=== PATIENT | female | born 1945 | race Caucasian/White ===

== ENCOUNTER → 2024-04-29 | Outpatient (CLI) | payer MEDICARE, OTHER, SELFPAY ==
[2024-04-29 10:43] LABS: Basophils # (Auto) 0.1 Thou/mm3 (0.0-0.2); Basophils % (Auto) 1 % (0-2.5); Eosinophils # (Auto) 0.2 Thou/mm3 (0.0-0.5); Eosinophils % (Auto) 3 % (0-10); Hematocrit 41.4 % (36.0-46.0); Hemoglobin 13.7 g/dL (12.0-16.0); Immature Granulocytes % (Auto) 0 % (0-0); Immature Granulocytes Auto 0.01 Thou/mm3 (0.00-0.00); Lymphocytes % (Auto) 29 % (10-50); Mean Corpuscular HGB Conc 33.1 g/dl (31.0-37.0); Mean Corpuscular Volume 91 fL (80-100); Monocytes # (Auto) 1.1 Thou/mm3 (0.0-0.8); Monocytes % (Auto) 15 % (0-12); Neutrophils # (Auto) 3.7 Thou/mm3 (1.8-7.7); Neutrophils % (Auto) 53 % (37-80); Nucleated Red Blood Cell % 0 /100 WBC (0); Platelet Count 152 Thou/mm3 (140-440); RDW Standard Deviation 47.4 fL (36.4-46.3); Red Blood Count 4.57 Miln/mm3 (4.00-5.20); White Blood Count 7.1 Thou/mm3 (3.6-11.0)
[2024-04-29 11:09] LABS: Carcinoembryonic Antigen 1.1 ng/mL (0.0-5.0)
[2024-04-29 11:20] LABS: Alanine Aminotransferase 8 U/L (10-49); Albumin, Serum 4.2 gm/dL (3.4-4.8); Albumin/Globulin Ratio 1.9 (1.2-2.2); Alkaline Phosphatase 76 U/L (46-116); Anion Gap 4 (7-16); Aspartate Amino Transferase 20 U/L (0-34); BUN/Creatinine Ratio 19 Ratio (12-20); Bilirubin,Total 0.5 mg/dL (0.3-1.2); Blood Urea Nitrogen 19 mg/dL (9-23); Calcium 10.1 mg/dL (8.3-10.6); Calcium (Corrected) 10.1 mg/dL (8.5-10.1); Carbon Dioxide 28.9 mMol/L (20.0-31.0); Chloride 106 mMol/L (98-107); Globulin 2.2 gm/dL (2.3-3.5); Glucose 82 mg/dL (74-106); Osmolality,Calculated 278 (275-295); Potassium 4.9 mMol/L (3.4-5.1); Sodium 139 mMol/L (136-145); Total Protein 6.4 gm/dL (5.7-8.2); eGFR 57 See Note
[2024-04-29 12:00] LABS: Protein Total, Urine Volume 1000 mL/24hr (600-1800)
[2024-04-29 12:09] LABS: Protein Total, 24 hr Urine 690 mg/24hr (<149); Protein Total, Urine 69 mg/dL (1-14)
== END | disposition home or self-care (01) ==
LOC: SCTO 10:14
PROVIDERS: PCP Family Medicine; Referring Provider Specialist; Visit Provider Specialist
DX: C54.3 Malignant neoplasm of fundus uteri (principal)
CPT/HCPCS: 36415; 80053; 82378; 84156; 85025

== ENCOUNTER 2024-05-03 08:32 | Outpatient (RCR) | payer MEDICARE, OTHER, SELFPAY | END 2024-05-21 23:59 | disposition home or self-care (01) | LOC: SCTC 08:32 | PROVIDERS: PCP Family Medicine; Referring Provider Family Medicine; Visit Provider Internal Medicine Hematology & Oncology | DX: Z51.11 Encounter for antineoplastic chemotherapy (principal); C54.1 Malignant neoplasm of endometrium; R80.9 Proteinuria, unspecified | CPT/HCPCS: 86304; 96413; A4216; J1642; Q5126 ==

== ENCOUNTER → 2024-05-23 | Outpatient (CLI) | payer MEDICARE, OTHER, SELFPAY ==
[2024-05-23 11:26] LABS: Basophils # (Auto) 0.1 Thou/mm3 (0.0-0.2); Basophils % (Auto) 1 % (0-2.5); Eosinophils # (Auto) 0.5 Thou/mm3 (0.0-0.5); Eosinophils % (Auto) 7 % (0-10); Hematocrit 40.2 % (36.0-46.0); Hemoglobin 13.3 g/dL (12.0-16.0); Immature Granulocytes % (Auto) 0 % (0-0); Immature Granulocytes Auto 0.03 Thou/mm3 (0.00-0.00); Lymphocytes # (Auto) 2.1 Thou/mm3 (1.0-4.8); Lymphocytes % (Auto) 27 % (10-50); Mean Corpuscular HGB Conc 33.1 g/dl (31.0-37.0); Mean Corpuscular Volume 91 fL (80-100); Monocytes # (Auto) 1.2 Thou/mm3 (0.0-0.8); Monocytes % (Auto) 15 % (0-12); Neutrophils # (Auto) 3.9 Thou/mm3 (1.8-7.7); Neutrophils % (Auto) 50 % (37-80); Nucleated Red Blood Cell % 0 /100 WBC (0); Platelet Count 154 Thou/mm3 (140-440); RDW Standard Deviation 49.1 fL (36.4-46.3); Red Blood Count 4.44 Miln/mm3 (4.00-5.20); White Blood Count 7.7 Thou/mm3 (3.6-11.0)
[2024-05-23 11:39] LABS: Alanine Aminotransferase 12 U/L (10-49); Albumin/Globulin Ratio 1.7 (1.2-2.2); Alkaline Phosphatase 74 U/L (46-116); Anion Gap 5 (7-16); Aspartate Amino Transferase 21 U/L (0-34); BUN/Creatinine Ratio 30 Ratio (12-20); Bilirubin,Total 0.6 mg/dL (0.3-1.2); Blood Urea Nitrogen 27 mg/dL (9-23); Calcium 10.4 mg/dL (8.3-10.6); Calcium (Corrected) 10.4 mg/dL (8.5-10.1); Carbon Dioxide 29.6 mMol/L (20.0-31.0); Chloride 108 mMol/L (98-107); Creatinine (Component) 0.9 mg/dL (0.6-1.3); Globulin 2.3 gm/dL (2.3-3.5); Glucose 80 mg/dL (74-106); Osmolality,Calculated 289 (275-295); Potassium 4.3 mMol/L (3.4-5.1); Sodium 143 mMol/L (136-145); Total Protein 6.3 gm/dL (5.7-8.2); eGFR > 60 See Note
[2024-05-23 11:44] LABS: Carcinoembryonic Antigen 0.9 ng/mL (0.0-5.0)
[2024-05-23 12:36] LABS: Protein Total, Urine 194 mg/dL (1-14)
[2024-05-23 12:38] LABS: Protein Total, 24 hr Urine 1310 mg/24hr (<149); Protein Total, Urine Volume 675 mL/24hr (600-1800)
== END | disposition home or self-care (01) ==
LOC: SCTO 10:21
PROVIDERS: PCP Family Medicine; Referring Provider Internal Medicine Hematology & Oncology; Visit Provider Internal Medicine Hematology & Oncology
DX: C54.3 Malignant neoplasm of fundus uteri (principal)
CPT/HCPCS: 36415; 80053; 82378; 84156; 85025

== ENCOUNTER 2024-05-24 09:02 | Outpatient (RCR) | payer MEDICARE, OTHER, SELFPAY | END 2024-06-21 23:59 | disposition home or self-care (01) | LOC: SCTC 09:02 | PROVIDERS: PCP Family Medicine; Referring Provider Family Medicine; Visit Provider Internal Medicine Hematology & Oncology | DX: Z51.11 Encounter for antineoplastic chemotherapy (principal); C54.1 Malignant neoplasm of endometrium; R80.9 Proteinuria, unspecified; R59.0 Localized enlarged lymph nodes; R97.1 Elevated cancer antigen 125 [CA 125] | CPT/HCPCS: 96413; A4216; J1642; Q5126 ==

== ENCOUNTER → 2024-06-14 | Outpatient (CLI) | payer MEDICARE, OTHER, SELFPAY ==
[2024-06-14 11:35] LABS: Basophils # (Auto) 0.1 Thou/mm3 (0.0-0.2); Basophils % (Auto) 1 % (0-2.5); Eosinophils # (Auto) 0.2 Thou/mm3 (0.0-0.5); Eosinophils % (Auto) 2 % (0-10); Hematocrit 40.1 % (36.0-46.0); Hemoglobin 13.3 g/dL (12.0-16.0); Immature Granulocytes % (Auto) 0 % (0-0); Immature Granulocytes Auto 0.01 Thou/mm3 (0.00-0.00); Lymphocytes # (Auto) 1.7 Thou/mm3 (1.0-4.8); Lymphocytes % (Auto) 16 % (10-50); Mean Corpuscular HGB Conc 33.2 g/dl (31.0-37.0); Mean Corpuscular Hemoglobin 30.5 pg (25.0-35.0); Mean Corpuscular Volume 92 fL (80-100); Monocytes # (Auto) 1.4 Thou/mm3 (0.0-0.8); Monocytes % (Auto) 14 % (0-12); Neutrophils # (Auto) 6.8 Thou/mm3 (1.8-7.7); Neutrophils % (Auto) 67 % (37-80); Nucleated Red Blood Cell % 0 /100 WBC (0); Platelet Count 177 Thou/mm3 (140-440); RDW Standard Deviation 50.2 fL (36.4-46.3); Red Blood Count 4.36 Miln/mm3 (4.00-5.20); White Blood Count 10.1 Thou/mm3 (3.6-11.0)
[2024-06-14 12:11] LABS: Alanine Aminotransferase 22 U/L (10-49); Albumin, Serum 4.7 gm/dL (3.4-4.8); Albumin/Globulin Ratio 1.8 (1.2-2.2); Alkaline Phosphatase 77 U/L (46-116); Anion Gap 13 (7-16); Aspartate Amino Transferase 46 U/L (0-34); BUN/Creatinine Ratio 44 Ratio (12-20); Bilirubin,Total 0.9 mg/dL (0.3-1.2); Blood Urea Nitrogen 66 mg/dL (9-23); Calcium 11.1 mg/dL (8.3-10.6); Calcium (Corrected) 11.1 mg/dL (8.5-10.1); Carbon Dioxide 26.2 mMol/L (20.0-31.0); Chloride 109 mMol/L (98-107); Creatinine (Component) 1.5 mg/dL (0.6-1.3); Free T4 (Free Thyroxine) 1.34 ng/dL (0.89-1.76); Globulin 2.6 gm/dL (2.3-3.5); Glucose 78 mg/dL (74-106); Osmolality,Calculated 312 (275-295); Potassium 3.7 mMol/L (3.4-5.1); Sodium 148 mMol/L (136-145); Thyroid Stimulating Hormone 3.98 uIU/mL (0.55-4.78); Total Protein 7.3 gm/dL (5.7-8.2); eGFR 35 See Note
[2024-06-14 12:20] LABS: Uric Acid 15.7 mg/dL (3.1-7.8)
== END | disposition home or self-care (01) ==
LOC: COPL 10:53
PROVIDERS: PCP Family Medicine; Referring Provider Family Medicine; Visit Provider Family Medicine
DX: C54.3 Malignant neoplasm of fundus uteri (principal); E79.0 Hyperuricemia without signs of inflammatory arthritis and tophaceous disease; D64.9 Anemia, unspecified
CPT/HCPCS: 36415; 80053; 84439; 84443; 84550; 85025

== ENCOUNTER 2024-06-27 22:22 | Inpatient (IN) | payer MEDICARE, OTHER, SELFPAY ==
[2024-06-27 22:35] VITALS: BP 130/81
--- NOTE | 2024-06-27 22:35 | XR_ITS ---
Examination: CT brain head without contrast. 2-D sagittal coronal reconstructions Date and time of exam:June 27, 2024 1140 hrs. Indications: Ground-level fall today with injury to the head, head pain Comparison: November 30, 2023 CTDI: vol (mGy):51.80 DLP: (mGycm):1071 Technique: Multiple CT axial sections of the brain have been obtained, 5 mm slice thickness. Contrast has not been administered. 2-D sagittal, coronal reconstructions have been obtained Low dose protocols were performed. One or more of the following dose reduction techniques were used; automated exposure control, adjustment of the mA and/or KV according to patient size, use of iterative reconstruction technique. Findings: No significant ventricular enlargement. Old infarct right cerebellar hemisphere Acute appearing wedge-shaped infarcts in the posterior right parietal lobe axial image 18 Intra-axial or extra-axial hemorrhage density is not seen. No mass effect or midline shift Basal cisterns are not remarkable. Fourth ventricle is midline. Cranial vault intact. Impression: Negative for acute hemorrhage, mass effect or midline shift Acute appearing infarct in the right posterior parietal lobe axial image 18 Recommend brain MRI follow-up, stroke protocol
--- NOTE | 2024-06-27 22:35 | XR_ITS ---
Examination: CT cervical spine without contrast 2-D sagittal reconstructions 2-D coronal reconstructions 3-D reconstructions. Exam date and time:June 27, 1999 2541 hours Indications: Altered mental status today, ground-level fall with injury to the neck, neck pain Comparison: November 30, 2023 CTDI:vol (mGy) 11.56 DLP: (mGycm) 299 Technique: Multiple 2 mm axial sections of the cervical spine have been obtained. The coronal and sagittal reconstructions have been obtained. 3-D reconstructions have been obtained. Low dose protocols were performed. One or more of the following dose reduction techniques were used; automated exposure control, adjustment of the mA and/or KV according to patient size, use of iterative reconstruction technique. Findings: Axial sections demonstrate intact base of the skull. C1 exhibit satisfactory relationship to the odontoid. No acute cervical vertebral body fracture seen. Alignment posterior spinous processes satisfactory. Impression: No acute cervical fracture.
--- NOTE | 2024-06-27 22:35 | EKG_ITS ---
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
--- NOTE | 2024-06-27 22:38 | PD.EDRME ---
Rapid Medical Screening Exam RME Arrival date/time: 06/27/24 22:22 CC: Altered mental status HPI patient presents the ER via EMS who reports stable blood pressure but heart rate of 130. Patient fell off her bed landing on her behind, fire arrived sitting her back up again upon EMS arrival the patient can use to be altered patient does have a history of dementia. Patient was noted to have vomitus on her shirt. EMS report altered mental status throughout the transport. Patient is easily arousable to voice. Time Seen by Provider: 06/27/24 22:34 Vital signs: Vital Signs Blood Pressure 130/81 06/27/24 22:35
[2024-06-27] MEDS: SODIUM CHLORIDE 0.9% 1000 ML 1,000 ML 999 ML IV (22:40)
[2024-06-27 22:52] VITALS: PULSE 130; O2SAT 96
[2024-06-27 22:53] VITALS: PULSE 117; RESP 20; O2SAT 96
[2024-06-27 23:20] VITALS: BP 136/99; PULSE 112; TEMP 37.9; O2SAT 92
[2024-06-27 23:27] VITALS: BMI 21.5
--- NOTE | 2024-06-27 23:32 | PD.EDAMS ---
Altered Mental Status RME/HPI General Chief Complaint: Altered Mental Status Stated Complaint: AMS Time Seen by Provider: 06/27/24 22:34 Arrival date/time: 06/27/24 22:22 RME / HPI RME / HPI narrative: 06/27/24 22:22 CC: Altered mental status HPI patient presents the ER via EMS who reports stable blood pressure but heart rate of 130. Patient fell off her bed landing on her behind, fire arrived sitting her back up again upon EMS arrival the patient can use to be altered patient does have a history of dementia. Patient was noted to have vomitus on her shirt. EMS report altered mental status throughout the transport. Patient is easily arousable to voice. ------- Dr. Barraza?s Main ED Evaluation: 78yo female with a history of dementia BIBA from home presents to the ED for a chief complaint of altered mental status. Per EMS< patient had fallen off her bed and landed on her bottom. Unwitnessed fall. Patient states she does remember falling, but does not report how or why she fell. She denies any abdominal pain, extremity pain or any other associated symptoms. No further history reported. Related Data Home Medications ?Medication ?Instructions ?Recorded ?Confirmed atenolol 25 mg tablet 25 mg PO HS ##90 05/21/17 11/30/23 risperidone 4 mg tablet 2 mg PO BID 10/08/21 11/30/23 benztropine 2 mg tablet 2 mg PO BID 11/30/23 11/30/23 Allergies Allergy/AdvReac Type Severity Reaction Status Date / Time No Known Allergies Allergy Verified 08/25/22 08:50 Review of Systems Review of Systems Systems Reviewed: All systems reviewed, normal except as documented Past Medical History Past Medical History NEUROLOGIC: Positive Neurological Disorders and Dementia; Negative Seizures CARDIAC: Positive Hypertension; Negative Congestive Heart Failure RESPIRATORY: Negative Chronic Obstructive Pulmonary Disease (COPD) or Bronchitis GASTROINTESTINAL: Negative Gastrointestinal Disorders GENITOURINARY: Negative Genitourinary Disorders or Renal Disease MUSCULOSKELETAL: Negative Musculoskeletal Disorders ENT: Positive Ear Infection and Eye Prosthesis ENDOCRINE: Negative Endocrine Disorders, Diabetes Mellitus Type 1 or Diabetes Mellitus Type 2 HEMATOLOGIC: Negative Blood Disorders PSYCHO/SOCIAL: Positive Schizophrenia OTHER HISTORY: Positive Hospitalization, Falls and Chemotherapy; Negative Blood Transfusions, Blood Transfusion Reaction, Anesthesia Reactions or Clostridium Difficile Family History FAMILY HISTORY: Positive Family Cancer; Negative Family Cardiac Disorders Surgical History SURGICAL: Positive Tonsillectomy and Hysterectomy (MINNIE w/BSO 2017) Social History SMOKING STATUS: Unknown if ever smoked ED Exam Narrative Physical exam: GENERAL APPEARANCE: alert and oriented x person and place, well-developed, no acute distress VITALS: All vitals were reviewed and the pulse ox is 94% on room air, which is normal according to my interpretation. HEENT: Normocephalic, atraumatic; pupils equal, round, reactive to light; EOMI; mucous membranes pink, dry; oropharynx clear NECK: Supple LUNGS: CTABL; no wheezes, no rales, no rhonchi; tachypneic HEART: Tachycardic, regular rhythm; normal S1, S2; no murmurs ABDOMEN: non distended; normal BS; soft, no tenderness, no guarding, no rebound; no masses, no organomegaly, no hernia BACK: no CVA tenderness EXTREMITIES: atraumatic; no edema NEUROLOGIC: awake; alert and oriented x person and place; cranial nerves II-XII grossly intact; no focal sensory or motor deficits PSYCHIATRIC: appropriate mood and affect SKIN: warm, dry, normal color; no rashe Course Course Course Narrative: CXR is ordered to r/o pneumothorax. 2341: Sepsis alert initiated. Orders made at this time are congruent with ED Adult Sepsis Order List. Re-evaluation is to be completed. NS IVF was started at 2240. Quality Measures Possible source: pulmonary Blood cultures ordered: yes Antibiotic ordered: Yes Pertinent labs: 06/27/24 23:20 Lactic Acid 3.8 H mMol/L (0.4-2.0) Procalcitonin 0.38 ng/ml (0.0-0.49) sepsis Orders Category Date Time Status Admit to Inpatient Status Routine Admission 06/28/24 01:46 Active Patient Condition Routine Admission 06/28/24 01:45 Ordered EKG (ED ONLY) *Do not use* NOW Care 06/27/24 22:35 Completed In and Out Catheter X1PRN Care 06/27/24 23:41 Completed Miscellaneous Nursing Order NOW Care 06/28/24 01:45 Active NPO STAT Care 06/27/24 23:41 Active Notify provider NEEDED Care 06/28/24 01:45 Active Saline [Insert IV] NOW Care 06/27/24 22:44 Active Strict Intake and Output Routine Care 06/27/24 23:[address] cervical spine wo con Stat Exams 06/27/24 22:[address] head/brain wo con Stat Exams 06/27/24 22:35 Completed EKG (ED Only) Stat Exams 06/27/24 22:35 Draft XR chest 1V portable Stat Exams 06/27/24 23:34 Taken XR chest 1V portable Stat Exams 06/28/24 00:37 Taken B-Type Natriuretic Peptide Stat Lab 06/27/24 23:20 Completed Blood Culture (Lab) Stat Lab 06/27/24 23:25 Received CBC Stat Lab 06/27/24 23:20 Completed Comprehensive Metabolic Panel Stat Lab 06/27/24 23:20 Completed Creatine Kinase Stat Lab 06/27/24 23:20 Completed Drug Screen,Urine Stat Lab 06/27/24 23:30 Completed LDH (Lactate Dehydrogenase) Stat Lab 06/27/24 23:20 Completed Lactate (Lactic Acid) Stat Lab 06/27/24 23:20 Completed Lipase Stat Lab 06/27/24 23:20 Completed Magnesium Stat Lab 06/27/24 23:20 Completed Partial Thromboplastin Time Stat Lab 06/27/24 23:20 Completed Phosphorous Stat Lab 06/27/24 23:20 Completed Procalcitonin Stat Lab 06/27/24 23:20 Completed Prothrombin Time with INR Stat Lab 06/27/24 23:20 Completed Troponin I Stat Lab 06/27/24 23:20 Completed Urinalysis Stat Lab 06/27/24 23:30 Completed Doxycycline Inj [Vibramycin Inj] 200 mg Med 06/28/24 01:06 Discontinued Sodium Chloride 0.9% 250 ml [Ns] 250 ml IV X1 Sodium Chloride 0.9% 1000 ml [Ns] 1,000 ml Med 06/27/24 22:44 Discontinued IV 999 mls/hr Sodium Chloride 0.9% 1000 ml [Ns] 1,000 ml Med 06/28/24 00:25 Discontinued IV 999 mls/hr Sodium Chloride 0.9% 500 ml [Ns] 500 ml Med 06/28/24 00:28 Discontinued IV 999 mls/hr cefTRIAXone/D5w 1gm IV premix [Rocephin/D5w 1gm IV Med 06/28/24 01:06 Discontinued premix] 50 ml IV X1 Code Status Routine Oth 06/28/24 01:45 Ordered Vital Signs Vital signs: Vital Signs Blood Pressure 130/81 06/27/24 22:35 Altered Mental Status MDM Narrative MDM Narrative:: Scribe Attestation: 06/27/24 Jaclyn Cardenas am scribing for and in the presence of Dr. Barraza. Patient data External records reviewed:: [facility] previous records (Per chart review, patient was admitted here on 11/30/23 for dehydration.) Clinical information provided by:: patient Social determinants that could affect healthcare access:: none Patient has the following chronic illnesses:: dementia, HTN How is presenting disease/condition affected by chronic disease/condition?: caused by Evaluation data The following diagnostics were reviewed and interpreted by me:: lab results, radiology exam(s) and EKG tracing(s) Lab and/or radiology exams considered but not ordered:: none Interpretation Summary: WBC count is elevated at 29.8, Creatinine is elevated at 1.9, Glucose is 115, Lactate is elevated at 3.8, Troponin is elevated at 0.507, Total Creatinine Kinase is elevated at 305, Lipase is elevated at 102, Procalcitonin is normal, UA is negative for a UTI, UDS is negative, according to my interpretation. CXR shows a right lower lobe infiltrate, a port-a-cath, no CHF, according to my interpretation. EKG done at 2248, sinus tachycardia, rate of 119, left axis deviation, no ectopy, Q waves in lead III, avF, V1-V3, no STEMI, according to my interpretation. -------- [place] Report Signed Patient: FRANK CORNEJO Record#: [id number] Birthdate: 1945 Age/Sex: 78 / F Location: [facility] Attending Dr: Ordering Physician: Sherwin Ng NP Date of Service: 06/27/24 Procedure(s): CT cervical spine wo con Accession Number(s): [id number] cc: Sherwin Ng NP; Иван Hardin MD~ Examination: CT cervical spine without contrast 2-D sagittal reconstructions 2-D coronal reconstructions 3-D reconstructions. Exam date and time:June 27, 1999 2541 hours Indications: Altered mental status today, ground-level fall with injury to the neck, neck pain Comparison: November 30, 2023 CTDI:vol (mGy) 11.56 DLP: (mGycm) 299 Technique: Multiple 2 mm axial sections of the cervical spine have been obtained. The coronal and sagittal reconstructions have been obtained. 3-D reconstructions have been obtained. Low dose protocols were performed. One or more of the following dose reduction techniques were used; automated exposure control, adjustment of the mA and/or KV according to patient size, use of iterative reconstruction technique. Findings: Axial sections demonstrate intact base of the skull. C1 exhibit satisfactory relationship to the odontoid. No acute cervical vertebral body fracture seen. Alignment posterior spinous processes satisfactory. Impression: No acute cervical fracture. Dictated By: Иван Hardin MD Signed By: <Electronically signed by Иван Hardin MD in OV> 06/27/24 4895 -------- [facility] Report Signed Patient: FRANK CORNEJO Record#: [id number] Birthdate: 1945 Age/Sex: 78 / F Location: [facility] Attending Dr: Ordering Physician: Sherwin Ng NP Date of Service: 06/27/24 Procedure(s): CT head/brain wo con Accession Number(s): [id number] cc: Sherwin Ng NP; Иван Hardin MD~ Examination: CT brain head without contrast. 2-D sagittal coronal reconstructions Date and time of exam:June 27, 2024 1140 hrs. Indications: Ground-level fall today with injury to the head, head pain Comparison: November 30, 2023 CTDI: vol (mGy):51.80 DLP: (mGycm):1071 Technique: Multiple CT axial sections of the brain have been obtained, 5 mm slice thickness. Contrast has not been administered. 2-D sagittal, coronal reconstructions have been obtained Low dose protocols were performed. One or more of the following dose reduction techniques were used; automated exposure control, adjustment of the mA and/or KV according to patient size, use of iterative reconstruction technique. Findings: No significant ventricular enlargement. Old infarct right cerebellar hemisphere Acute appearing wedge-shaped infarcts in the posterior right parietal lobe axial image 18 Intra-axial or extra-axial hemorrhage density is not seen. No mass effect or midline shift Basal cisterns are not remarkable. Fourth ventricle is midline. Cranial vault intact. Impression: Negative for acute hemorrhage, mass effect or midline shift Acute appearing infarct in the right posterior parietal lobe axial image 18 Recommend brain MRI follow-up, stroke protocol Dictated By: Иван Hardin MD Signed By: <Electronically signed by Иван Hardin MD in OV> 06/27/24 0485 DD/ 2353 Medications / Prescriptions Medications or Prescriptions considered but not ordered:: none Medication administrations:: Medication Administration History Acetaminophen (Acetaminophen 325 Mg Tablet) 650 mg PO Q6H PRN PRN Reason: Fever >101.5 Stop: 07/28/24 01:48 Heparin Sodium (Porcine) (Heparin Sod Inj 5000 Unit/Ml Vial) 5,000 unit SC Q8HR KRISTAN Stop: 07/12/24 05:59 Ampicillin Sodium/Sulbactam (Sodium 1.5 gm/ Sodium Chloride) 50 mls @ 100 mls/hr IV Q12HR KRISTAN Stop: 07/05/24 05:59 Sodium Chloride (Ns) 1,000 mls @ 125 mls/hr IV .Q8H ONE Stop: 06/28/24 11:54 Magnesium Hydroxide (Milk Of Magnesia Susp 30 Ml Udc) 30 ml PO QDAY PRN; Protocol PRN Reason: CONSTIPATION Stop: 07/28/24 01:48 Ondansetron HCl (Ondansetron Inj 2 Mg/Ml Inj 2 Ml) 4 mg IV Q6H PRN; Protocol PRN Reason: NAUSEA OR VOMITING Stop: 07/28/24 01:48 Pantoprazole Sodium (Pantoprazole Inj 40 Mg Vial) 40 mg IVP QDAY [facility] Stop: 07/28/24 08:59 Discontinued Medications Sodium Chloride (Ns) 1,000 mls @ 999 mls/hr IV .Q1H1M ONE Stop: 06/27/24 23:44 Last Infusion: 06/27/24 23:41 Dose: Infused Documented By: Admin: 06/27/24 22:40 Dose: 999 mls/hr Documented By: MARYELLEN Sodium Chloride (Ns) 1,000 mls @ 999 mls/hr IV .Q1H1M ONE Stop: 06/28/24 01:25 Last Infusion: 06/28/24 01:43 Dose: Infused Documented By: Admin: 06/28/24 00:42 Dose: 999 mls/hr Documented By: MARYELLEN Sodium Chloride (Ns) 500 mls @ 999 mls/hr IV .Q31M ONE Stop: 06/28/24 00:58 Last Infusion: 06/28/24 03:21 Dose: Infused Documented By: Admin: 06/28/24 02:50 Dose: 999 mls/hr Documented By: KG Ceftriaxone Sodium/Dextrose (Rocephin/D5w 1gm Iv Premix) 50 mls @ 100 mls/hr IV X1 ONE Stop: 06/28/24 01:35 Last Infusion: 06/28/24 03:17 Dose: Infused Documented By: Admin: 06/28/24 02:47 Dose: 100 mls/hr Documented By: KG Doxycycline Hyclate 200 mg/ (Sodium Chloride) 250 mls @ 125 mls/hr IV X1 ONE Stop: 06/28/24 03:05 Last Admin: 06/28/24 03:50 Dose: 125 mls/hr Documented By: KG see above Consultations Consultation(s) initiated? (list below): Yes Consultation #1 (Physician, Specialty, Details): Discussed case with [the resident physician, attending Dr. Plata] from Hospitalist service regarding admission. Discussed patients ED course, exam findings, labs, and radiology results. The Hospitalist [agrees] to accept the patient for admission. Time: 01:08 Diagnosis Differential diagnosis altered mental status: sepsis and other (dehydration, electrolyte abnormality, UTI, pneumonia) Most likely diagnosis given after review of the tests above:: see below Admission Indicated Admission indicated?: indicated Admission Request Was there a request for admission?: Yes Admission Attestation Admission request attestation: Discussed case with [] from Hospitalist service regarding admission. Discussed patients ED course, exam findings, labs, and radiology results. The Hospitalist [agrees,declines] to accept the patient for admission. Disposition Plan Disposition Plan: Admit Critical Care Time Critical Care Time Critical Care Time: Yes Total Critical Care Time (min.): 40 Attestation: The high probability of sudden, clinically significant deterioration in the patient?s condition required the highest level of my preparedness to intervene urgently. The services I provided to this patient were to treat and/or prevent clinically significant deterioration. Services included the following: chart data review, reviewing nursing notes and/or old charts, documentation time, etl consultant collaboration regarding findings and treatment options, medication orders and management, direct patient care, vital sign assessments and ordering, interpreting and reviewing diagnostic studies and lab tests. Aggregate critical care time includes only time during which I was engaged in work directly related to the patient?s care, as described above, whether at bedside or elsewhere in the Emergency Department. It did not include time spent performing other reported procedures or the services of residents, students, nurses or physician assistants. Discharge Plan Plan Patient Disposition: Admit Acute Care w/in Hospital Problem List Clinical Impression: Dehydration, Sepsis, Pneumonia, Acute renal insufficiency, Non-ST elevation MO (NSTEMI)
--- NOTE | 2024-06-27 23:34 | XR_ITS ---
Examination: AP chest single view Technique one AP portable upright chest single view Exam date and time: June 28, 2024 0008 hours Comparison November 30, 2023 INDICATIONS: Altered mental status today. FINDINGS: Normal heart size Left internal jugular Port-A-Cath tip satisfactory position Accentuation basilar bronchovascular markings No aspiration pneumonia IMPRESSION: Basilar bronchitis pattern
[2024-06-27 23:43] LABS: Basophils # (Auto) 0.1 Thou/mm3 (0.0-0.2); Basophils % (Auto) 0 % (0-2.5); Eosinophils % (Auto) 0 % (0-10); Hematocrit 50.3 % (36.0-46.0); Hemoglobin 16.5 g/dL (12.0-16.0); Immature Granulocytes % (Auto) 1 % (0-0); Lymphocytes # (Auto) 1.1 Thou/mm3 (1.0-4.8); Lymphocytes % (Auto) 4 % (10-50); Mean Corpuscular HGB Conc 32.8 g/dl (31.0-37.0); Mean Corpuscular Hemoglobin 29.9 pg (25.0-35.0); Mean Corpuscular Volume 91 fL (80-100); Monocytes # (Auto) 3.3 Thou/mm3 (0.0-0.8); Monocytes % (Auto) 11 % (0-12); Neutrophils # (Auto) 25.2 Thou/mm3 (1.8-7.7); Neutrophils % (Auto) 84 % (37-80); Nucleated Red Blood Cell % 0 /100 WBC (0); Platelet Count 275 Thou/mm3 (140-440); RDW Standard Deviation 49.9 fL (36.4-46.3); Red Blood Count 5.51 Miln/mm3 (4.00-5.20); White Blood Count 29.8 Thou/mm3 (3.6-11.0)
[2024-06-27 23:48] LABS: Collection Type, Urine Clean Catch
[2024-06-27 23:52] LABS: Lactate (Lactic Acid) 3.8 mMol/L (0.4-2.0)
[2024-06-28] VITALS (11 sets, daily range): BP systolic 116–168; BP diastolic 62–95; PULSE 76–113; RESP 16–23; TEMP 36.1–36.5; O2SAT 90–97; BMI 19.1
[2024-06-28 00:08] LABS: B-Type Natriuretic Peptide 108 pg/mL (0-100)
[2024-06-28 00:15] LABS: Bilirubin,Urine Negative (Negative); Blood,Urine Trace (Negative); Clarity,Urine Clear (Clear/Hazy); Color,Urine Yellow (Lt Yel-Yel); Glucose, Urine Negative (Negative); Ketones,Urine Trace (Negative); Leukocyte Esterase,Urine Negative (Negative); Nitrite,Urine Negative (Negative); PH,Urine 5.5 (5.0-7.0); Protein,Urine 2+ (Neg - Trace); RBC,Urine 1 /hpf (0-3); Squamous Epithelial Cell,Urine < 1 /hpf (0-5); WBC,Urine 1 /hpf (0-5)
[2024-06-28 00:18] LABS: Alanine Aminotransferase 34 U/L (10-49); Albumin, Serum 4.4 gm/dL (3.4-4.8); Albumin/Globulin Ratio 1.2 (1.2-2.2); Alkaline Phosphatase 93 U/L (46-116); Anion Gap 16 (7-16); Aspartate Amino Transferase 42 U/L (0-34); BUN/Creatinine Ratio 46 Ratio (12-20); Bilirubin,Total 0.8 mg/dL (0.3-1.2); Blood Urea Nitrogen 88 mg/dL (9-23); Calcium 11.2 mg/dL (8.3-10.6); Calcium (Corrected) 11.2 mg/dL (8.5-10.1); Carbon Dioxide 22.5 mMol/L (20.0-31.0); Chloride 109 mMol/L (98-107); Creatine Kinase 305 U/L (34-171); Creatinine (Component) 1.9 mg/dL (0.6-1.3); Estimated Creatinine Clearance 25.4 mL/min (>60); Globulin 3.7 gm/dL (2.3-3.5); Glucose 115 mg/dL (74-106); Lipase 102 U/L (12-53); Magnesium 2.5 mg/dL (1.6-2.6); Osmolality,Calculated 320 (275-295); Phosphorous 3.4 mg/dL (2.4-5.1); Potassium 4.7 mMol/L (3.4-5.1); Procalcitonin 0.38 ng/ml (0.0-0.49); Sodium 147 mMol/L (136-145); Total Protein 8.1 gm/dL (5.7-8.2); eGFR 26 See Note
[2024-06-28 00:27] LABS: Troponin I 0.507 ng/mL (0.0-0.045)
[2024-06-28 00:30] LABS: LDH (Lactate Dehydrogenase) 420 U/L (120-246)
[2024-06-28 00:37] LABS: Amphetamine/Methamp Scrn,U Negative (Negative); Barbiturate Screen,Urine Negative (Negative); Benzodiazepines Screen,Urine Negative (Negative); Benzoylecgonine Screen, Ur Negative (Negative); Fentanyl Screen,Urine Negative (Negative); Opiate Screen,Urine Negative (Negative); THC Screen,Urine Negative (Negative)
[2024-06-28 00:37] LABS: INR 1.3 (0.9-1.3); Partial Thromboplastin Time 27.4 Seconds (22.0-36.0); Prothrombin Time 13.7 Seconds (9.0-12.2)
--- NOTE | 2024-06-28 00:37 | XR_ITS ---
Examination: AP chest single view Technique one AP portable upright chest single view Exam date and time: June 28 2024 to 37 hours Comparison June 28, 2024 0008 hours INDICATIONS: Altered mental status today. FINDINGS: Pneumonia right base Normal heart size Port-A-Cath satisfactory position IMPRESSION: Pneumonia right base, consider aspiration pneumonia
[2024-06-28] MEDS: SODIUM CHLORIDE 0.9% 1000 ML 1,000 ML 999 ML IV (00:42)
--- NOTE | 2024-06-28 01:54 | PD.RESHP ---
Documentation for date of: 06/28/24 [facility] History of Present Illness Chief complaint: Altered mental status History of present illness: Patient has altered mental status and unable to give history, most of the history is taken from the chart review A 78-year-old female with past medical history of dementia, hypertension, stage IV endometrial cancer S/P Hysterectomy and chemotherapy, Shingles was brought in by ambulance to the hospital with complaints of altered mental status. Per chart review, patient had a fall following which fire department and later EMS came to the house, later patient's denied taking her to the hospital for which diesel instructor were called upon and later patient was brought to the hospital. Patient was diagnosed with stage IV endometrial cancer in 2017 for which patient underwent total hysterectomy and bilateral salpingo-oophorectomy. Later patient was treated with 6 cycles of adjuvant carboplatin and paclitaxel. In PET/CT patient was found to have metastasis in recoverable and common iliac lymph nodes in 2019. Later patient received 12 weekly doses of carboplatin and Taxotere. Later patient slowly developed worsening of memory and thousand 24 which Taxotere was given every other week. Patient have recurrent hospitalizations recent one is in 11/2023 ED Course: -Initial vitals were blood pressure 130/81 mmHg, pulse rate 117 bpm, respiratory rate 20/min, temperature 100.3 ?F, SpO2 96% with room air -Labs significant for WBC 29.8, Hb 16.5, platelets 275, sodium 147, chloride 109, BUN 88, creatinine 1.9, lactate 3.8, AST 42, ALT 34, LDH 420, creatinine kinase 305, troponins 0.507, procalcitonin 0.38. Urinalysis showed 2+ proteinuria. Urine toxicology tested negative. Chest x-ray showed patchy infiltrate in the right lower base of the right lung. Head CT showed infarct in right parietal lobe. EKG showed sinus tachycardia -In the ED, patient was given 2.5 L NS, ceftriaxone, doxycycline -Patient was admitted for acute encephalopathy likely secondary to combined dehydration and stroke Past medical history: dementia, hypertension, stage IV endometrial cancer S/P Hysterectomy and chemotherapy, Shingles Past surgical history: Hysterectomy and oophorectomy Social history: Unknown Review of Systems Review of Systems ROS Unobtainable: unobtainable due to mental status Exam Vital Signs Temp Pulse Resp BP Pulse Ox O2 Del Method 100.3 F 108 H 18 124/92 H 96 Room Air 06/27/24 23:20 06/28/24 01:31 06/28/24 01:31 06/28/24 01:31 06/28/24 01:06/28/24 01:31 Narrative Exam General: Awake. Looks like chronically neglected HEENT: Normocephalic, atraumatic, mucous membranes dry. Heart: Regular rate and rhythm, no murmurs. Lungs: Clear to auscultation with no wheezing or crackles. Abdomen: Soft, nondistended, nontender, positive bowel sounds. ?No guarding or rebound tenderness. Neurologic:Awake, no gross neurological deficit, and patient able to move all 4 extremities. Extremities: No edema. Skin: Healed shingles rash on abdomen, ecchymoses. Results: Labs 06/27/24 23:20 06/27/24 23:20 Labs: Short CBC 06/27/24 Range/Units 23:20 WBC 29.8 H (3.6-11.0) Thou/mm3 Hgb 16.5 H (12.0-16.0) g/dL Hct 50.3 H (36.0-46.0) % Plt Count 275 D (140-440) Thou/mm3 BMP 06/27/24 23:20 Sodium 147 H Potassium 4.7 Chloride 109 H Carbon Dioxide 22.5 BUN 88 H Creatinine 1.9 H Glucose 115 H Calcium 11.2 H Cardiac Enzymes 06/27/24 Range/Units 23:20 Total Creatine Kinase 305 H (34-171) U/L Troponin I 0.507 H* (0.0-0.045) ng/mL Liver Function 06/27/24 Range/Units 23:20 Total Bilirubin 0.8 (0.3-1.2) mg/dL AST 42 H (0-34) U/L ALT 34 (10-49) U/L Alkaline Phosphatase 93 (46-116) U/L Albumin 4.4 (3.4-4.8) gm/dL Urine 06/27/24 Range/Units 23:30 Urine Color Yellow (Lt Yel-Yel) Urine Clarity Clear (Clear/Hazy) Urine pH 5.5 (5.0-7.0) Ur Specific [place] 1.020 (1.001-1.035) Urine Protein 2+ A (Neg - Trace) Urine Glucose (UA) Negative (Negative) Quality Measures Quality Measures sepsis Current suspected stage: ruled out Possible source: other Blood cultures ordered: yes Antibiotic ordered: Yes Advance care planning discussed with:: other Medications Home Medications and Allergies Home Medications ?Medication ?Instructions ?Recorded ?Confirmed ?Type atenolol 25 mg tablet 25 mg PO ##90 05/21/17 11/30/23 History risperidone 4 mg tablet 2 mg PO BID 10/08/21 11/30/23 History benztropine 2 mg tablet 2 mg PO BID 11/30/23 11/30/23 History Allergies Allergy/AdvReac Type Severity Reaction Status Date / Time No Known Allergies Allergy Verified 08/25/22 08:50 Visit Medications Acetaminophen (Acetaminophen 325 Mg Tablet) 650 mg PO Q6H PRN PRN Reason: Fever >101.5 Stop: 07/28/24 01:48 Heparin Sodium (Porcine) (Heparin Sod Inj 5000 Unit/Ml Vial) 5,000 unit SC Q8HR [facility] Stop: 07/12/24 05:59 Doxycycline Hyclate 200 mg/ (Sodium Chloride) 250 mls @ 125 mls/hr IV X1 ONE Stop: 06/28/24 03:05 Magnesium Hydroxide (Milk Of Magnesia Susp 30 Ml Udc) 30 ml PO QDAY PRN; Protocol PRN Reason: CONSTIPATION Stop: 07/28/24 01:48 Ondansetron HCl (Ondansetron Inj 2 Mg/Ml Inj 2 Ml) 4 mg IV Q6H PRN; Protocol PRN Reason: NAUSEA OR VOMITING Stop: 07/28/24 01:48 Pantoprazole Sodium (Pantoprazole Inj 40 Mg Vial) 40 mg IVP QDAY [facility] Stop: 07/28/24 08:59 Discontinued Medications Sodium Chloride (Ns) 1,000 mls @ 999 mls/hr IV .Q1H1M ONE Stop: 06/27/24 23:44 Last Admin: 06/27/24 22:40 Dose: 999 mls/hr Sodium Chloride (Ns) 1,000 mls @ 999 mls/hr IV .Q1H1M ONE Stop: 06/28/24 01:25 Last Admin: 06/28/24 00:42 Dose: 999 mls/hr Sodium Chloride (Ns) 500 mls @ 999 mls/hr IV .Q31M ONE Stop: 06/28/24 00:58 Ceftriaxone Sodium/Dextrose (Rocephin/D5w 1gm Iv Premix) 50 mls @ 100 mls/hr IV X1 ONE Stop: 06/28/24 01:35 Assessment & Plan Plan A 78-year-old female with past medical history of dementia, hypertension, stage IV endometrial cancer S/P Hysterectomy and chemotherapy, Shingles was brought in by ambulance to the hospital with complaints of altered mental status and admitted for stroke, likely due to dehydration # Acute encephalopathy # Stroke, right posterior parietal infarct combined with aspiration pneumonia # Rule out cortical sinus venous thrombosis # Baseline dementia # Chronically neglected # Dehydration -Patient was brought to the hospital with complaints of altered mental status. -In the ED, patient found to have blood pressure of 130/81 mmHg, pulse rate 117 bpm, respiratory rate 20/min, temperature 100.3 ?F, SpO2 96% with room air -Labs showed WBC 29.8, Hb 16.5, platelets 275, sodium 147, lactate 3.8 -CT head showed right parietal lobe infarct -Cervical spine CT showed no fractures -2.5 L NS IV fluids was given in the ED Plan -Neurologist Dr. Rangel consult was ordered -MRI brain and CT angio head and neck was ordered -MR venogram brain was ordered without contrast -Held antiplatelets for now until neurology is consulted or venous thrombosis is ruled out -Cerebral sinus venous thrombosis is suspected as patient is having dehydration, history of malignancy and also because of the location of the infarct -HbA1c, lipid profile, TSH and B12 levels are ordered -Started on IV fluids NS at 125 mL/h -N.p.o. as of now -Bedside swallow screen and speech evaluation was ordered -Head and elevation # Aspiration pneumonia # Leukocytosis, due to combined dehydration and aspiration # Fever # Baseline dementia -Patient presented with fever and altered sensorium -CBC showed elevated WBC, 29.8 -Chest x-ray showed patchy infiltrate in right lower base -In the ED patient received ceftriaxone and doxycycline Plan -Patient was started on Unasyn 1.5 g IV every 12 hourly -Aspiration precautions -Blood cultures were sent # Acute kidney injury, likely prerenal in the setting of dehydration # Hypernatremia, likely due to dehydration -Baseline creatinine in 05/23/2024 is 0.9 -Creatinine at the time of admission is 1.9, BUN is 88 -2.5 L of NS bolus is given and started on IV fluids NS at 125 mL/h -Monitor renal functions -Urine sodium and creatinine is ordered -Renally dose medications and avoid nephrotoxic medication # Dehydration # Chronically neglected # Malnutrition -Patient looks chronically neglected and was brought by EMS -Patient was found on floor with vomitus on her clothes -In the ED patient was given 2.5 L of NS and started on 1 L NS at 125 mL/h -A dose of multivitamin injection is given -Contact social service manager # History of endometrial cancer s/p bilateral salpingo oophorectomy and hysterectomy and chemotherapy -Patient was diagnosed in 2017 with endometrial cancer due to postmenopausal bleeding -Received treatment in cancer center with chemo -Notes by Dr. Watkins oncologist on 02/2024 - PET/CT scan done on 03/03/2024 showed enlarging intra-abdominal lymph nodes as documented above. Her CA125 has increased to 87 on 02/04/2024. She was not able to get bevacizumab on a regular basis. Her last bevacizumab was given on 11/17/2023. CA125 has increased to 87.0. The patient is clinically doing very well. She is currently on bevacizumab. Tolerating it very well.. Progressed on pembrolizumab. Lenvatinib discontinued on 02/12/2022. Patient progressed on topotecan. 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 Plan -CA125 is ordered Hospital Maintenance: Dispo: telemetry DVT ppx: Heparin GI ppx: Protonix Diet: N.p.o. IV lines: Peripheral Code status: Full code Patient plan of care was discussed with the attending physician, Dr. Dana Angeles, PGY1 Attending Provider Attestation/Addendum CT angio of the head and neck was called to me by the radiology service. Study is negative. 78-year-old female with endometrial cancer with metastasis, status postchemotherapy, dementia, hypertension. She was brought into the emergency room by ambulance because of altered mentation. CT scan of the brain showed acute stroke involving the right posterior parietal [place] [address], Chest xray showed bilateral pulmonary infiltrates, she probably has aspiration pneumonia. Patient will be admitted for further workup and treatment. She is full code.
[2024-06-28] MEDS: cefTRIAXone/D5w 1gm IV premix 50 ML IV (02:47)
[2024-06-28 02:48] LABS: Reflex Lactate? Y
[2024-06-28] MEDS: SODIUM CHLORIDE 0.9% 500 ML 500 ML 999 ML IV (02:50)
--- NOTE | 2024-06-28 03:45 | XR_ITS ---
Examination: CTA carotids with intravenous contrast CTA brain, head with intravenous contrast. 2-D sagittal, coronal reconstructions. 3-D reconstructions. Exam date and time: June 28, 2024 0436 hrs. Indications: Altered mental status today, onset focal neurologic deficit, diagnosis acute encephalopathy stroke CTDI: vol (mGy) 18.85 DLP: (mGycm) 496 Technique: Multiple CTA axial brain, head carotid images post intravenous contrast injection 75 cc, [id number]. 2-D sagittal, coronal reconstructions. 3-D reconstructions, 3-D post processing including vascular maximum intensity projection images. Low dose protocols were performed. One or more of the following dose reduction techniques were used; automated exposure control, adjustment of the mA and/or KV according to patient size, use of iterative reconstruction technique. Findings: 15 mm right thyroid mass No common carotid carotid bifurcation or significant internal carotid artery stenoses Codominant vertebral arteries with no critical stenoses No cerebral large vessel arterial occlusions thrombus dissection or cerebral aneurysm Impression: 15 mm right thyroid mass, recommend dedicated thyroid sonography follow-up No significant neck arterial stenoses No cerebral large vessel arterial occlusions or thrombus
[2024-06-28] MEDS: DOXYCYCLINE INJ 200 MG in SODIUM CHLORIDE 0.9% 250 ML 250 ML 125 MG IV (03:50)
[2024-06-28] MEDS: SODIUM CHLORIDE 0.9% 1000 ML 1,000 ML 125 ML IV (04:30)
--- NOTE | 2024-06-28 04:57 | ECHO_ITS ---
Transthoracic Echo Report Ht (in): 70 Wt (lb): 150 Exam Location: [facility] Status: Inpatient Lockstitch Pocket Setter: Fozia Casiano Indications: Procedure Performed: BP: 151 / 80 HR: 105 Rhythm: Tachycardia Technical Quality: Fair MEASUREMENTS (Male / Female) Normal Values 2D ECHO LV Diastolic Diameter PLAX 4.6 cm 4.2 - 5.9 / 3.9 - 5.3 cm LV Systolic Diameter PLAX 3.3 cm IVS Diastolic Thickness 1.1 cm 0.6 - 1.0 / 0.6 - 0.9 cm LVPW Diastolic Thickness 1.0 cm 0.6 - 1.0 / 0.6 - 0.9 cm LV Relative Wall Thickness 0.5 LVOT Diameter 2.0 cm LA Volume Index 17.1 cm?/m? 16 - 28 cm?/m? Ascending Aorta Diameter 3.5 cm M-MODE Aortic Root Diameter MM 2.5 cm LA Systolic Diameter MM 3.0 cm LA Ao Ratio MM 1.2 AV Cusp Separation MM 2.2 cm DOPPLER AV Peak Velocity 126.0 cm/s AV Peak Gradient 6.4 mmHg AV Mean Gradient 3.0 mmHg AV Velocity Time Integral 22.1 cm LVOT Peak Velocity 96.8 cm/s LVOT Peak Gradient 3.7 mmHg LVOT Velocity Time Integral 19.1 cm LVOT Cardiac Index 3442.5 cm?/min?m? AV Area Cont Eq vti 2.7 cm? AV Area Cont Eq pk 2.4 cm? MV Peak Velocity 108.0 cm/s MV Peak Gradient 4.7 mmHg MV Mean Velocity 61.5 cm/s MV Mean Gradient 2.0 mmHg MV Area PHT 3.9 cm? Mitral E Point Velocity 64.5 cm/s Mitral A Point Velocity 101.0 cm/s Mitral E to A Ratio 0.6 LV E' Lateral Velocity 7.8 cm/s Mitral E to LV E' Lateral Ratio 8.2 LV E' Septal Velocity 8.2 cm/s Mitral E to LV E' Septal Ratio 7.9 TR Peak Velocity 220.0 cm/s TR Peak Gradient 19.4 mmHg FINDINGS Left Ventricle Normal left ventricular size, wall thickness, systolic function with no obvious regional wall motion abnormalities. The ejection fraction is visually estimated at 55-60%. Right Ventricle The right ventricle is normal in size and systolic function. The estimated right ventricular systoli c pressure, 24 mmHg. RAP 5. Left Atrium The left atrium is normal by two-dimensional, color flow and Doppler imaging with no structural abnormalities, no thrombus formation present. Right Atrium The right atrium is normal by two-dimensional imaging, color flow and Doppler imaging with no struct ural abnormalities, no thrombus formation present. Atrial Septum The interatrial septum appears normal with no evidence of a shunt. Aorta The aorta is normal by two-dimensional, color flow and Doppler interrogation. Mitral Valve The mitral valve is mildly MAC. There is mild mitral valve regurgitation. Aortic Valve The aortic valve is trileaflet and normal by two-dimensional, color flow and Doppler interrogation. There is mild aortic valve regurgitation. Tricuspid Valve The tricuspid valve is normal by two-dimensional, color flow and Doppler interrogation. There is tra ce tricuspid valve regurgitation. Pulmonic Valve There is no significant pulmonic valve regurgitation. Vessels The pulmonary artery appears normal. The inferior vena cava pulmonary and hepatic veins appear brisa l. Pericardium The pericardium is normal by two-dimensional imaging. There is no significant pericardial effusion. CONCLUSIONS Indication: Stroke Negative bubble study. TTE is suboptimal to rule out PFO or ASD. Consider MYRNA if high clincial suspi cion. Normal LV size and function. Stage I diastolic dysfunction. Estimated EF 55-60% Normal RV size and function Mild MAC. Mild MR, AI. Trace TRYamile Navarro (Electronically Signed) Final Date: 28 June 2024 18:18
--- NOTE | 2024-06-28 05:45 | PRELIM_ITS ---
CT angiogram of the head and neck with intravenous contrast (axial sections with sagittal and coronal reformats) June 28, 2024 0434 hours Clinical History: Stroke.Comparison: No prior study is availa ble for comparison. Findings:Head: The internal carotid, middle and anterior cerebral arteries are pa tent bilaterally. The intracranial vertebral arteries are patent. The vertebrobasilar junction, basil ar and posterior cerebral arteries are patent. No evidence of large vessel occlusion, critical stenos is or aneurysm.Neck: The aortic arch to the extent visualized as well as the origins of the right bra chiocephalic, left common carotid, and left subclavian arteries are patent. The common carotid arteri es, carotid bulbs, and internal and external carotid arteries are patent. The origins of the vertebra l arteries are unremarkable. The vertebral arteries are codominant. No evidence of vascular occlusion , critical stenosis, dissection or aneurysm. There is right thyroid lobe 1x1.5 cm hypodense nodule f or sonographic evaluation Degenerative changes are identified in the spine. The soft tissues of the n mirza are unremarkable. Degenerative changes are identified in the spine. Impression: Head: No evidence of large vessel occlusion, critical stenosis or aneurysm.Neck: No evidence of vascular occlusion, cr itical stenosis, dissection or aneurysm.Discussion Details: Results verbally communicated to : Dr. Vikas blanco at 05:36 AM 06/28/2024 Report Electronically Signed By: Chelsey George 06/28/2024 5:44:43 AM [ES T]
[2024-06-28 06:51] LABS: Lactic Acid, 3 HR 1.5 mMol/L (0.4-2.0)
[2024-06-28 07:02] LABS: Basophils % (Auto) 0 % (0-2.5); Eosinophils % (Auto) 0 % (0-10); Hematocrit 39.2 % (36.0-46.0); Hemoglobin 12.8 g/dL (12.0-16.0); Immature Granulocytes % (Auto) 1 % (0-0); Immature Granulocytes Auto 0.14 Thou/mm3 (0.00-0.00); Lymphocytes # (Auto) 1.7 Thou/mm3 (1.0-4.8); Lymphocytes % (Auto) 8 % (10-50); Mean Corpuscular HGB Conc 32.7 g/dl (31.0-37.0); Mean Corpuscular Hemoglobin 29.8 pg (25.0-35.0); Mean Corpuscular Volume 91 fL (80-100); Monocytes # (Auto) 2.2 Thou/mm3 (0.0-0.8); Monocytes % (Auto) 10 % (0-12); Neutrophils % (Auto) 82 % (37-80); Nucleated Red Blood Cell % 0 /100 WBC (0); Platelet Count 156 Thou/mm3 (140-440)
[2024-06-28 07:24] LABS: Glucose Estimated Average 97 mg/dL (80-131)
[2024-06-28 07:48] LABS: Anion Gap 13 (7-16); BUN/Creatinine Ratio 54 Ratio (12-20); Blood Urea Nitrogen 76 mg/dL (9-23); Calcium 9.4 mg/dL (8.3-10.6); Carbon Dioxide 22.8 mMol/L (20.0-31.0); Chloride 114 mMol/L (98-107); Cholesterol 121 mg/dL (132-200); Creatinine (Component) 1.4 mg/dL (0.6-1.3); Estimated Creatinine Clearance 34.4 mL/min (>60); Glucose 99 mg/dL (74-106); Osmolality,Calculated 320 (275-295); Potassium 4.3 mMol/L (3.4-5.1); Sodium 150 mMol/L (136-145); Triglycerides 154 mg/dL (30-150); eGFR 38 See Note
[2024-06-28 08:06] LABS: HDL Cholesterol 46 mg/dL (40-60); Thyroid Stimulating Hormone 2.19 uIU/mL (0.55-4.78)
[2024-06-28 08:09] LABS: Cardiac Risk Estimate 2.6 RATIO (3.7-5.6); LDL Cholesterol,Calculated 44 mg/dL (0-130)
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
--- NOTE | 2024-06-28 10:03 | PC.CC ---
Pt Christin Diez is an 78 yr old female, admitted to hospitalist services for acute encephalopathy. Pt is demented at baseline, hx provided by pts Merritt Diez [phone]. Mr. Diez confirmed understanding admission order. Mr. Diez confirms all demographic information. Pt is from home [address] [place] [address] Dr. Hollins. Pt resides with her . Mr. Diez is identified as surrogate DM. Per Mr. Diez pt has 2-wheel walker but has been using a wheel chair more frequently. Per Mr. Diez pt is maximum assist with her ADLs. Mr. Diez provides all of pts care in the home. Per Mr. Diez, he had private pay support 2 yrs ago, but terminated care provider. Per Mr. Diez pt is not diabetic and is not on dialysis. Pt does not require supplemental O2. Pt with hx of uterine cancer, last round of chemo 1 month ago. Pt is followed by Dr. Rollins for primary care. Mr. Diez is uncertain if he would want pt to D/c to SNF as he is uncertain they will be able to provide care pt needs. Mr. Diez expressed uncertainty if he would want pt placed in senior care care. ASW informed by ED staff that pt was placed on 5150 hold for GD, by [employer] JOIN[employer] Officer David. ASW unable to locate hold. Bedside RN located business card for Officer David, report# [id number]. [id number] made contact with [employer], speaking with Sakina. ASW informed that pt was not placed on 5150 hold at this time. Officer David's card attached to pts admission packet.
[2024-06-28 10:42] LABS: Sodium 151 mMol/L (136-145)
[2024-06-28 10:43] LABS: Sed Rate (ESR) 22 mm/hr (0-30)
--- NOTE | 2024-06-28 11:02 | PCS.ST ---
Swallow Evaluation initiated. Pt unable to swallow. No reflexive swallow. Constant vocal congestion at this time. Evaluation ongoing.
[2024-06-28] MEDS: HEPARIN SOD INJ 5000 UNIT/ML VIAL SC ×2 (12:19→21:30)
[2024-06-28] MEDS: DEXTROSE 5%-WATER 1,000 ML 100 ML IV (12:19)
[2024-06-28] MEDS: PANTOPRAZOLE INJ 40 MG VIAL IVP (12:19)
[2024-06-28] MEDS: AMPICILLIN/SULBAC INJ 3 GM in SODIUM CHLORIDE 0.9% (P) 100 ML IV ×3 (12:20→23:19)
[2024-06-28 12:34] LABS: Troponin I 0.414 ng/mL (0.0-0.045)
[2024-06-28 13:26] LABS: Anion Gap 13 (7-16); BUN/Creatinine Ratio 54 Ratio (12-20); Blood Urea Nitrogen 65 mg/dL (9-23); Calcium 9.8 mg/dL (8.3-10.6); Carbon Dioxide 20.6 mMol/L (20.0-31.0); Chloride 118 mMol/L (98-107); Creatinine (Component) 1.2 mg/dL (0.6-1.3); Estimated Creatinine Clearance 35.7 mL/min (>60); Glucose 89 mg/dL (74-106); Osmolality,Calculated 319 (275-295); Potassium 3.7 mMol/L (3.4-5.1); Sodium 152 mMol/L (136-145); eGFR 46 See Note
[2024-06-28 13:57] LABS: Sodium 152 mMol/L (136-145)
--- NOTE | 2024-06-28 14:21 | PCS.ST ---
See report for details. Constant vocal congestion. Unable to clear airway. No swallow response. Altered and agitated. High aspiration risk. Keep NPO for now. ST will see daily for swallow trials.
[2024-06-28] MEDS: DiphenhydrAMINE INJ 50 MG/ML VIAL 12.5 MG IVP (14:57)
[2024-06-28] MEDS: MULTIVITAMIN INJ 10 ML in SODIUM CHLORIDE 0.9% 500 ML 500 ML 510 ML IV (15:33)
[2024-06-28 17:53] LABS: Vitamin B12 867 pg/mL (211-911)
[2024-06-28 18:18] LABS: Sodium 152 mMol/L (136-145)
--- NOTE | 2024-06-28 20:00 | PC.NURSE ---
patient is very confused, she keeps attempting to climb out of bed. Telesitter is in place, but still throwing legs over rail and trying to get out of bed. I tries multiple times to redirect patient but she is confused Applied wrist restraints and she is tolerating well. I attempted to call spouse, but phone is busy
--- NOTE | 2024-06-28 23:55 | PD.VPROG1 ---
Telemedicine visit statement This visit was conducted with the use of interactive audio and video telecommunications system that permits real time communication between the patient and the provider. Patient's verbal consent for virtual visit was obtained on 06/28/24 at 2355. Documentation for date of: 06/28/24 Virtual exam Vital Signs Temp Pulse Resp BP Pulse Ox O2 Del Method 97.2 F 82 19 175/103 H 94 L Room Air 06/28/24 20:00 06/28/24 20:00 06/28/24 20:00 06/28/24 20:00 06/28/24 20:00 06/28/24 16:00 Objective Labs 06/28/24 06:41 06/28/24 18:00 Labs: Laboratory Results - last 24 hr 06/27/24 06/27/24 06/28/24 23:20 23:30 06:41 WBC 29.8 H 22.0 H D RBC 5.51 H 4.30 Hgb 16.5 H 12.8 D Hct 50.3 H 39.2 D MCV 91 91 MCH 29.9 29.8 MCHC 32.8 32.7 RDW Std Deviation 49.9 H 50.0 H Plt Count 275 D 156 D Neut % (Auto) 84 H 82 H Lymph % (Auto) 4 L 8 L Sunflower % (Auto) 11 10 Eos % (Auto) 0 0 Baso % (Auto) 0 0 Neut # (Auto) 25.2 H 18.0 H Lymph # (Auto) 1.1 1.7 Sunflower # (Auto) 3.3 H 2.2 H Eos # (Auto) 0.0 0.0 Baso # (Auto) 0.1 0.0 Immature Gran # (Auto) 0.20 H 0.14 H Absolute Nucleated RBC 0.00 0.00 Immature Gran % 1 H 1 H Nucleated RBC % 0 0 ESR 22 PT 13.7 H INR 1.3 APTT 27.4 Sodium 147 H 150 H Potassium 4.7 4.3 Chloride 109 H 114 H Carbon Dioxide 22.5 22.8 Anion Gap 16 13 BUN 88 H 76 H Creatinine 1.9 H 1.4 H D Estim Creat Clear Calc 25.4 L 34.4 L eGFR 26 L 38 L BUN/Creatinine Ratio 46 H 54 H Glucose [address] Glu mg/dL 97 Hemoglobin A1c 5.0 Calculated Osmolality 320 H 320 H Lactic Acid 3.8 H 1.5 Calcium 11.2 H 9.4 D Corrected Calcium 11.2 H Phosphorus 3.4 Magnesium 2.5 Total Bilirubin 0.8 AST 42 H ALT 34 Alkaline Phosphatase 93 Lactate Dehydrogenase 420 H Total Creatine Kinase 305 H Troponin I 0.507 H* B-Natriuretic Peptide 108 H Total Protein 8.1 Albumin 4.4 Globulin 3.7 H Albumin/Globulin Ratio 1.2 Triglycerides 154 H Cholesterol 121 L LDL Cholesterol, Calc 44 HDL Cholesterol 46 Cholesterol/HDL Ratio 2.6 L Lipase 102 H CA 125 Antigen 60.0 H Vitamin B12 867 Procalcitonin 0.38 TSH 2.19 Ur Collection Type Clean Catch Urine Color Yellow Urine Clarity Clear Urine pH 5.5 Ur Specific [place] 1.020 Urine Protein 2+ A Urine Glucose (UA) Negative Urine Ketones Trace Urine Blood Trace Urine Nitrite Negative Urine Bilirubin Negative Urine Urobilinogen (Auto) 2.0 Ur Leukocyte Esterase Negative Urine RBC 1 Urine WBC 1 Ur Squamous Epith Cells < 1 Urine Bacteria None Urine Opiates Screen Negative Urine Fentanyl Screen Negative Ur Barbiturates Screen Negative U Amphetamin/Meth Scrn Negative U Benzodiazepines Scrn Negative U Cocaine Metab Screen Negative U Marijuana (THC) Screen Negative 06/28/24 06/28/24 06/28/24 10:07 11:59 13:19 WBC RBC Hgb Hct MCV MCH MCHC RDW Std Deviation Plt Count Neut % (Auto) Lymph % (Auto) Sunflower % (Auto) Eos % (Auto) Baso % (Auto) Neut # (Auto) Lymph # (Auto) Sunflower # (Auto) Eos # (Auto) Baso # (Auto) Immature Gran # (Auto) Absolute Nucleated RBC Immature Gran % Nucleated RBC % ESR PT INR APTT Sodium 151 H 152 H 152 H Potassium 3.7 D Chloride 118 H Carbon Dioxide 20.6 Anion Gap 13 BUN 65 H Creatinine 1.2 Estim Creat Clear Calc 35.7 L eGFR 46 L BUN/Creatinine Ratio 54 H Glucose [address] Glu mg/dL Hemoglobin A1c Calculated Osmolality 319 H Lactic Acid Calcium 9.8 Corrected Calcium Phosphorus Magnesium Total Bilirubin AST ALT Alkaline Phosphatase Lactate Dehydrogenase Total Creatine Kinase Troponin I 0.414 H* B-Natriuretic Peptide Total Protein Albumin Globulin Albumin/Globulin Ratio Triglycerides Cholesterol LDL Cholesterol, Calc HDL Cholesterol Cholesterol/HDL Ratio Lipase CA 125 Antigen Vitamin B12 Procalcitonin TSH Ur Collection Type Urine Color Urine Clarity Urine pH Ur Specific [place] Urine Protein Urine Glucose (UA) Urine Ketones Urine Blood Urine Nitrite Urine Bilirubin Urine Urobilinogen (Auto) Ur Leukocyte Esterase Urine RBC Urine WBC Ur Squamous Epith Cells Urine Bacteria Urine Opiates Screen Urine Fentanyl Screen Ur Barbiturates Screen U Amphetamin/Meth Scrn U Benzodiazepines Scrn U Cocaine Metab Screen U Marijuana (THC) Screen 06/28/24 18:00 WBC RBC Hgb Hct MCV MCH MCHC RDW Std Deviation Plt Count Neut % (Auto) Lymph % (Auto) Sunflower % (Auto) Eos % (Auto) Baso % (Auto) Neut # (Auto) Lymph # (Auto) Sunflower # (Auto) Eos # (Auto) Baso # (Auto) Immature Gran # (Auto) Absolute Nucleated RBC Immature Gran % Nucleated RBC % ESR PT INR APTT Sodium 152 H Potassium Chloride Carbon Dioxide Anion Gap BUN Creatinine Estim Creat Clear Calc eGFR BUN/Creatinine Ratio Glucose Estimated Ave Glu mg/dL Hemoglobin A1c Calculated Osmolality Lactic Acid Calcium Corrected Calcium Phosphorus Magnesium Total Bilirubin AST ALT Alkaline Phosphatase Lactate Dehydrogenase Total Creatine Kinase Troponin I B-Natriuretic Peptide Total Protein Albumin Globulin Albumin/Globulin Ratio Triglycerides Cholesterol LDL Cholesterol, Calc HDL Cholesterol Cholesterol/HDL Ratio Lipase CA 125 Antigen Vitamin B12 Procalcitonin TSH Ur Collection Type Urine Color Urine Clarity Urine pH Ur Specific [place] Urine Protein Urine Glucose (UA) Urine Ketones Urine Blood Urine Nitrite Urine Bilirubin Urine Urobilinogen (Auto) Ur Leukocyte Esterase Urine RBC Urine WBC Ur Squamous Epith Cells Urine Bacteria Urine Opiates Screen Urine Fentanyl Screen Ur Barbiturates Screen U Amphetamin/Meth Scrn U Benzodiazepines Scrn U Cocaine Metab Screen U Marijuana (THC) Screen
--- NOTE | 2024-06-29 | XR_ITS ---
Examinations: MRI Brain without intravenous contrast. MRA brain without intravenous contrast. MRA carotids without intravenous contrast 3-D vascular reconstructions Date and time of exam: June 29, 2024 1538 hours Indication: Altered mental status after falling out of bed yesterday, dementia history Technique: Multiple axial and sagittal images of the brain have been obtained MRA brain carotid images without contrast obtained, including 3-D postprocessing, vascular maximum intensity projection images Findings: Sell[place] is not enlarged. The optic chiasm and infundibular stalk are not remarkable. Prepontine and interpeduncular cisterns are not enlarged. No localized enlargement of the medulla or verena. Fourth ventricle and cerebellar tonsils normal in position. Subacute hemorrhage is not seen. Fourth ventricle is midline. Mass in the cerebellopontine angle region is not evident. 7th and 8th nerve complexes exhibits symmetry. Globes are symmetrical with no retro-orbital mass. Increased white matter signal evident in the right occipital lobe Diffusion-weighted images demonstrate foci of wedge-shaped restricted diffusion right occipital lobe Tiny foci each 2 to 3 mm dictated diffusion in the posterior left parietal lobe Mass-effect upon the ventricular system is not identified. MRA carotid images severely degraded by patient motion. MRA brain images severely degraded by patient motion Impression: Negative for mass effect or midline shift Wedge-shaped acute infarcts in the right occipital lobe Suspicious for acute tiny infarcts in the posterior left parietal lobe
--- NOTE | 2024-06-29 | XR_ITS ---
Examination: MRV without intravenous contrast Exam date and time: June 2024 1538 hours INDICATIONS: Altered mental status beginning June 27, 2024 after falling TECHNIQUE AND FINDINGS: Limited MRV images of the brain obtained without intravenous contrast There is limited filling of the sagittal sinus, visualization anteriorly and posteriorly not evident Transverse sinuses do fill Image quality is limited IMPRESSION: Limited study Brain MRI MRV of the follow-up post contrast would best assess for patency of the entire sagittal sinus
[2024-06-29 00:47] LABS: Sodium 154 mMol/L (136-145)
[2024-06-29] MEDS: DEXTROSE 5%-WATER 1,000 ML 100 ML IV (02:29)
--- NOTE | 2024-06-29 02:36 | PC.NURSE ---
attempted purewick, patient moves in bed too much and was unable to capture any urine.
[2024-06-29 04:00] VITALS: BP 162/89; PULSE 92; RESP 19; TEMP 36.1; O2SAT 96
[2024-06-29] MEDS: AMPICILLIN/SULBAC INJ 3 GM in SODIUM CHLORIDE 0.9% (P) 100 ML IV ×4 (05:15→23:39)
[2024-06-29] MEDS: HEPARIN SOD INJ 5000 UNIT/ML VIAL SC ×2 (05:15→21:52)
[2024-06-29 07:38] LABS: Basophils % (Auto) 0 % (0-2.5); Eosinophils # (Auto) 0.3 Thou/mm3 (0.0-0.5); Eosinophils % (Auto) 2 % (0-10); Hematocrit 40.9 % (36.0-46.0); Hemoglobin 13.7 g/dL (12.0-16.0); Immature Granulocytes % (Auto) 1 % (0-0); Immature Granulocytes Auto 0.14 Thou/mm3 (0.00-0.00); Lymphocytes # (Auto) 1.4 Thou/mm3 (1.0-4.8); Lymphocytes % (Auto) 10 % (10-50); Mean Corpuscular HGB Conc 33.5 g/dl (31.0-37.0); Mean Corpuscular Hemoglobin 30.2 pg (25.0-35.0); Mean Corpuscular Volume 90 fL (80-100); Monocytes # (Auto) 1.7 Thou/mm3 (0.0-0.8); Monocytes % (Auto) 12 % (0-12); Neutrophils # (Auto) 10.5 Thou/mm3 (1.8-7.7); Neutrophils % (Auto) 75 % (37-80); Nucleated Red Blood Cell % 0 /100 WBC (0); Platelet Count 150 Thou/mm3 (140-440); RDW Standard Deviation 49.3 fL (36.4-46.3); Red Blood Count 4.54 Miln/mm3 (4.00-5.20)
[2024-06-29 08:00] VITALS: BP 155/97; PULSE 108; PULSE 110; RESP 23; TEMP 36.2; O2SAT 97
[2024-06-29 08:07] LABS: Alanine Aminotransferase 27 U/L (10-49); Albumin, Serum 3.5 gm/dL (3.4-4.8); Albumin/Globulin Ratio 1.3 (1.2-2.2); Alkaline Phosphatase 73 U/L (46-116); Anion Gap 13 (7-16); Aspartate Amino Transferase 36 U/L (0-34); BUN/Creatinine Ratio 42 Ratio (12-20); Bilirubin,Total 0.7 mg/dL (0.3-1.2); Blood Urea Nitrogen 38 mg/dL (9-23); Calcium 9.8 mg/dL (8.3-10.6); Calcium (Corrected) 10.2 mg/dL (8.5-10.1); Carbon Dioxide 23.7 mMol/L (20.0-31.0); Chloride 116 mMol/L (98-107); Creatinine (Component) 0.9 mg/dL (0.6-1.3); Estimated Creatinine Clearance 47.5 mL/min (>60); Globulin 2.7 gm/dL (2.3-3.5); Glucose 89 mg/dL (74-106); Magnesium 1.9 mg/dL (1.6-2.6); Osmolality,Calculated 311 (275-295); Potassium 3.1 mMol/L (3.4-5.1); Sodium 153 mMol/L (136-145); Total Protein 6.2 gm/dL (5.7-8.2); eGFR > 60 See Note
[2024-06-29 08:30] VITALS: PULSE 102; RESP 16; O2SAT 92
[2024-06-29] MEDS: PANTOPRAZOLE INJ 40 MG VIAL IVP (08:59)
[2024-06-29 09:10] VITALS: BMI 19.1
--- NOTE | 2024-06-29 09:28 | ESPR_ITS ---
<Statement entered by Tim Carpio MD - 06/29/24 15:22> Patient was seen and examined at the bedside. Patient is awake alert and oriented however she feels well screen. Nurse failed to place an NG tube 5 times therefore we consulted GI specialist who recommended that we will try to place an NG tube. Patient's was contacted via phone call and he was agreeable if patient will need a PEG tube and further if we will not able to place an NG tube as patient is currently n.p.o. and needs to start on tube feeds. Dietitian placed recommendations for tube feedings. Overnight, sodium continue to remain elevated at 153 therefore D5W fluid rate was increased to 1.5 cc/h. Currently continuing sodium checks every 6 hourly. Blood cultures are growing GPC therefore we added vancomycin in addition to Unasyn and patient also has a Port-A-Cath placed for history of endometrial cancer as patient required chemotherapy. Will follow-up with the final cultures and possibly will require removal of the Port-A-Cath. Labs showed white count at 14 and hemoglobin stable at 13.7. Patient was hypokalemic given potassium was repleted. Kidney function remained stable. Echocardiogram showed EF 55 to 60% with negative study. Will likely follow-up on MRI brain and MRV brain to evaluate for stroke and if that comes negative we will like to investigate further for acute encephalopathy. Aspirin was started per rectal as patient did not pass swallow screen and currently waiting on NG tube placement. If sodium does not improve in the next 24 hours will likely consider nephrology consult. All labs and orders were reviewed I saw and examined the patient, and I agree with current management stated by Dr Keaton DO ,PGY1. Plan of care was discussed with the attending physician and resident physician. Disclaimer: Despite multiple revisions, due to the dictation software being used, the document bellow may not be free of grammatical errors including phonetic/typographic errors. However, this does not deter from our commitment to providing health care in the patient's best interest in mind. Dr. Shirin MD, PGY 2 Documentation for date of: 06/29/24 Subjective Subjective Interval history: 06/28: Patient examined at bedside. Patient is oriented to person and place but not time. She knows that she is in the hospital but not how she got her. Pt is able to follow simple commands. Eyes track around the room. Complains of some congestion. Denies any chest pain or trouble breathing. 06/29: Patient this a.m. is oriented to person place and time. Appears chronically ill. Patient states that she lives with her , but still does not know how she got to the hospital. Vital signs stable other than blood pressure of 162/89. CBC shows WBC decreasing from 22 to 14. Potassium low at 3.1, phosphorus 2.0, repleted. Patient denies any new symptoms. Preliminary cultures grew gram-positive cocci in blood. Starting on vancomycin, getting repeat blood cultures timed for tomorrow AM draw. Echocardiogram shows normal LV, RV function with negative bubble study. EF predicted at 55 to 60%. Patient unable to get to MRI yesterday, staff say that she was too restless for machine. Will try again today. Multiple attempts to place NG tube failed by floor staff. Consulted Dr. Ivan for placement of NG tube. Had a lengthy discussion with the patient's Merritt regarding NG tube placement as well as possible PEG tube placement. Patient's is in agreement for PEG tube placement if needed. Will start tube feeds as soon as NG tube is in. Exam Vital Signs Temp Pulse Resp BP Pulse Ox O2 Del Method 97.1 F 108 H 23 H 155/97 H 97 Room Air 06/29/24 08:00 06/29/24 08:00 06/29/24 08:00 06/29/24 08:00 06/29/24 08:00 06/29/24 08:00 Narrative Exam Exam limited given altered mental status HEENT: PERRLA. poor dentition. CHEST: Symmetrical, atraumatic, and with equal expansion , Nontender on palpation no deformity and no crepitus. CARDIOVASCULAR: Heart regular rhythm no murmur or gallop rub or extra beats. LUNGS: Clear to auscultation bilaterally with symmetrical chest rise.? No laboring tachypnea or wheezing.? No intercostal subcostal retraction.? No rales and no rhonchi. ABDOMEN: Soft, flat, nontender to palpation, no guarding or rebound tenderness.? There are no abnormal masses palpated.? Active and normal bowel sounds. EXTREMITIES: Nontender.? No edema.? No cyanosis.? Patient able to lift all limbs against gravity. Can wiggle toes. She reports sensation to light touch intact to upper and lower extremities. NEURO: Oriented to person place and time. Patient appears to be mentating normally. Eyes track around the room. 1+ Patella reflexes bilaterally. 1+ Brachioradialis and biceps reflex. Babinski reflex down going. Objective Labs 07/01/24 04:22 07/01/24 04:22 Labs: Laboratory Results - last 24 hr 06/28/24 06/28/24 06/28/24 06:41 10:07 11:59 WBC RBC Hgb Hct MCV MCH MCHC RDW Std Deviation Plt Count Neut % (Auto) Lymph % (Auto) Nicholas % (Auto) Eos % (Auto) Baso % (Auto) Neut # (Auto) Lymph # (Auto) Nicholas # (Auto) Eos # (Auto) Baso # (Auto) Immature Gran # (Auto) Absolute Nucleated RBC Immature Gran % Nucleated RBC % ESR 22 Sodium 151 H 152 H Potassium 3.7 D Chloride 118 H Carbon Dioxide 20.6 Anion Gap 13 BUN 65 H Creatinine 1.2 Estim Creat Clear Calc 35.7 L eGFR 46 L BUN/Creatinine Ratio 54 H Glucose 89 Calculated Osmolality 319 H Calcium 9.8 Corrected Calcium Phosphorus Magnesium Total Bilirubin AST ALT Alkaline Phosphatase Troponin I 0.414 H* Total Protein Albumin Globulin Albumin/Globulin Ratio CA 125 Antigen 60.0 H Vitamin B12 867 06/28/24 06/28/24 06/29/24 13:19 18:00 00:30 WBC RBC Hgb Hct MCV MCH MCHC RDW Std Deviation Plt Count Neut % (Auto) Lymph % (Auto) Nicholas % (Auto) Eos % (Auto) Baso % (Auto) Neut # (Auto) Lymph # (Auto) Nicholas # (Auto) Eos # (Auto) Baso # (Auto) Immature Gran # (Auto) Absolute Nucleated RBC Immature Gran % Nucleated RBC % ESR Sodium 152 H 152 H 154 H Potassium Chloride Carbon Dioxide Anion Gap BUN Creatinine Estim Creat Clear Calc eGFR BUN/Creatinine Ratio Glucose Calculated Osmolality Calcium Corrected Calcium Phosphorus Magnesium Total Bilirubin AST ALT Alkaline Phosphatase Troponin I Total Protein Albumin Globulin Albumin/Globulin Ratio CA 125 Antigen Vitamin B12 06/29/24 06:40 WBC 14.0 H D RBC 4.54 Hgb 13.7 Hct 40.9 MCV 90 MCH 30.2 MCHC 33.5 RDW Std Deviation 49.3 H Plt Count 150 Neut % (Auto) 75 Lymph % (Auto) 10 Nicholas % (Auto) 12 Eos % (Auto) 2 Baso % (Auto) 0 Neut # (Auto) 10.5 H Lymph # (Auto) 1.4 Nicholas # (Auto) 1.7 H Eos # (Auto) 0.3 Baso # (Auto) 0.0 Immature Gran # (Auto) 0.14 H Absolute Nucleated RBC 0.00 Immature Gran % 1 H Nucleated RBC % 0 ESR Sodium 153 H Potassium 3.1 L D Chloride 116 H Carbon Dioxide 23.7 Anion Gap 13 BUN 38 H Creatinine 0.9 Estim Creat Clear Calc 47.5 L eGFR > 60 BUN/Creatinine Ratio 42 H Glucose 89 Calculated Osmolality 311 H Calcium 9.8 Corrected Calcium 10.2 H Phosphorus 2.0 L Magnesium 1.9 Total Bilirubin 0.7 AST 36 H ALT 27 Alkaline Phosphatase 73 D Troponin I Total Protein 6.2 Albumin 3.5 D Globulin 2.7 Albumin/Globulin Ratio 1.3 CA 125 Antigen Vitamin B12 Quality Measures Quality Measures sepsis Current suspected stage: sepsis Possible source: other Blood cultures ordered: yes Antibiotic ordered: Yes Advance care planning discussed with:: patient Assessment & Plan Assessment Current Active Medications: Generic Name Dose Route Start Last Admin Trade Name Freq PRN Reason Stop Dose Admin Acetaminophen 650 mg 06/28/24 05:22 Acetaminophen Supp 650 Mg Supp KS 07/28/24 05:21 Q6HR PRN PAIN OR FEVER > 101 Acetylcysteine 3 ml 06/28/24 12:55 Acetylcysteine Rt Marian 10% 4 Ml Nebu INH 07/28/24 11:45 Q4HR PRN SHORTNESS OF BREATH OR WHEEZE Albuterol/Ipratropium 3 ml 06/28/24 12:54 Albuterol/Ipratropium (Duoneb) Rt Marian 3 Ml Nebu INH 07/28/24 13:59 Q4HR PRN SHORTNESS OF BREATH OR WHEEZE Atorvastatin Calcium 80 mg 06/28/24 21:00 06/28/24 20:46 Atorvastatin Calcium 20 Mg Tablet PO 07/28/24 20:59 Not Given HS KRISTAN Dextrose 25 ml 06/28/24 09:50 Dextrose 50%-Water Inj 50 Ml Syringe IV 07/28/24 09:49 Q15MIN PRN BG 50-70 responsive npo pt Dextrose 50 ml 06/28/24 09:50 Dextrose 50%-Water Inj 50 Ml Syringe IV 07/28/24 09:49 Q15MIN PRN BG <50 OR BG <70 & pt unresponsive Glucagon 1 mg 06/28/24 09:50 Glucagon Inj 1 Mg Vial IM Q15MIN PRN BG <70, and no IV access Heparin Sodium (Porcine) 5,000 unit 06/28/24 06:00 06/29/24 05:15 Heparin Sod Inj 5000 Unit/Ml Vial SC 07/12/24 05:59 5,000 unit Q8HR KRISTAN Administration Ampicillin Sodium/Sulbactam 100 mls @ 200 mls/hr 06/28/24 12:00 06/29/24 06:05 Sodium 3 gm/ Sodium Chloride IV 07/05/24 11:59 Infused Q6HR KRISTAN Infusion Dextrose 1,000 mls @ 125 mls/hr 06/29/24 02:40 06/29/24 05:17 D5w IV 07/29/24 02:36 Not Given .Q8H KRISTAN Potassium Phosphate 15 mmol in 250 mls @ 62.5 mls/hr 06/29/24 09:25 Pot Phos 15 Mmol In Ns 250 Ml IV 06/29/24 17:24 Q4H KRISTAN Magnesium Hydroxide 30 ml 06/28/24 01:49 Milk Of Magnesia Susp 30 Ml Udc PO 07/28/24 01:48 QDAY PRN CONSTIPATION Protocol Ondansetron HCl 4 mg 06/28/24 01:49 Ondansetron Inj 2 Mg/Ml Inj 2 Ml IV 07/28/24 01:48 Q6H PRN NAUSEA OR VOMITING Protocol Pantoprazole Sodium 40 mg 06/28/24 09:00 06/29/24 08:59 Pantoprazole Inj 40 Mg Vial IVP 07/28/24 08:59 40 mg QDAY KRISTAN Administration Pharmacy Consult 1 each 06/29/24 09:00 Vancomycin Pharmacy To Dose 1 Each Each IV 07/29/24 08:59 QDAY PRN PROTOCOL Plan A 78-year-old female with past medical history of dementia, hypertension, stage IV endometrial cancer S/P Hysterectomy and chemotherapy was brought in by ambulance to the hospital with complaints of altered mental status admitted for further management and work up of encephalopathy. # Acute encephalopathy - Stroke, right posterior parietal infarct combined with aspiration pneumonia and dehydration # Rule out cortical sinus venous thrombosis # Baseline dementia # Chronically neglected DDx: Dehydration versus sepsis versus oropharyngeal dysphagia leading to poor p.o. intake versus electrolyte disturbance hyponatremia -Patient was brought to the hospital with altered mental status after being found down. -In the ED, patient found to have blood pressure of 130/81 mmHg, pulse rate 117 bpm, respiratory rate 20/min, temperature 100.3 ?F, SpO2 96% with room air -Labs showed WBC 29.8, Hb 16.5, platelets 275, sodium 147, lactate 3.8 -CT head showed hypodensity in right parietal lobe, raising concern for infarct v. sinus venous thrombosis. -CT angio head and neck negative for vessel occlusion -Cervical spine CT showed no fractures -2.5 L NS IV fluids was given in the ED -ECHO shows normal,LV,RV function. Bubble study (-) Plan -Atorvastatin 80 mg HS -Aspirin 81 mg per rectum -Neurologist Dr. Rangel consult was ordered -MRI brain ordered- pending -MR venogram brain was ordered without contrast- pending -Held antiplatelets for now until neurology is consulted or venous thrombosis is ruled out -Cerebral sinus venous thrombosis is suspected given history of malignancy and location of the infarct -N.p.o. as of now as patient is high aspiration risk per Speech -Attempting to place NG tube- GI Dr. Ivan following -Head of bed elevation #Aspiration pneumonia #Sepsis(Leukocytosis, tachypnea, and tachycardia) #Congestion -Patient presented with fever and altered sensorium -CBC showed elevated WBC, 29.8. Lactate elvated at 3.8. -Chest x-ray showed patchy infiltrate in right lower base -Given leukocytosis, increased respirtaroy rate, and tachycardia patient meets SIRS Criteria of sepsis. Source of infection likely from aspiration pneumonia -In the ED patient received ceftriaxone and doxycycline. Now on Unasyn given concern for pneumonia -Received 2 boluses of normal saline and moved to tele. -Patient has failed bedside swallow at this time. She is having difficulty with clearing congestion. 06/29: GPC on prelim blood cultures Plan - Increase Unasyn 1.5 g IV every 12 hourly to 3 gram q6 given improved kidney function. - Starting vancomycin, pharmacy to dose 06/29- - Repeat blood cultures ordered 06/29- pending - Failed bedside swallow. Aspiration precautions. NPO. - MRSA screen and blood cultures, sent and pending - Acetylcysteine - Chest Physiotherapy - Deep suction as needed #Hyperosmolar Hypernatremia Most recent labs showed increased sodium of 152. Will stop sodium chloride solution and start on hypotonic solution to lower sodium levels Free water deficit 1.3 L today Plan: -D5W at 125 cc/hr -Q6hr sodium check -Goal of sodium correction 8 to 10 mEq in first 24 hours -After tube feeds are started can dc d5W and proceed with free water flushes -If sodium is persistently high will consult nephrology #Dementia: Patient has history of dementia but unsure of her baseline at this time. Plan: - NPO for now due to high concerns for aspiration per Speech - Cephalometric Tracer consult # Acute kidney injury, likely prerenal in the setting of dehydration- appears resolved -Baseline creatinine in 05/23/2024 is 0.9 -Creatinine at the time of admission is 1.9, BUN is 88. -2.5 L of NS bolus is given and started on IV fluids NS at 125 mL/h. Will stop given increased hypernatremia. -Monitor renal functions -Urine sodium and creatinine is ordered -D5W running at 125 cc/hr # Dehydration # Chronically neglected # Malnutrition -Patient looks chronically neglected and was brought by EMS -Patient was found on floor with vomitus on her clothes -In the ED patient was given 2.5 L of NS and started on 1 L NS at 125 mL/h. Plan to stop given hypernatremia Per he states that she has difficulty with oral at baseline, and he only feeds for about 400 ashley a day. Plan: -Dietitian placed order for tube feeds-attempting to place NG tube today. GI Dr. Ivan on board. -Patient currently on D5W at 125 cc/h #Thyroid mass 15 mm right thyroid mass found on imaging TSH and free T4 normal - Obtaining PTH level-pending - outpatient follow up. patient will need a detailed work up outpatient. #Troponinemia Initial Troponin in ED resulted 0.507 Repeat in AM downtrended to 0.414 EKG sinus tach - Appears to be stress ischemia - will continue to trend symptoms # History of endometrial cancer s/p bilateral salpingo oophorectomy and hysterectomy and chemotherapy -Patient was diagnosed in 2017 with endometrial cancer due to postmenopausal bleeding -Received treatment in cancer center with chemo -Notes by Dr. Watkins oncologist on 02/2024 - PET/CT scan done on 03/03/2024 showed enlarging intra-abdominal lymph nodes as documented above. Her CA125 has increased to 87 on 02/04/2024. She was not able to get bevacizumab on a regular basis. Her last bevacizumab was given on 11/17/2023. CA125 has increased to 87.0. The patient is clinically doing very well. She is currently on bevacizumab. Tolerating it very well. Progressed on pembrolizumab. Lenvatinib discontinued on 02/12/2022. Patient progressed on topotecan. 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 CA 125 is elevated at 60.0 Plan: - Patient is advised to follow up with Dr. Watkins outpatient #Hypertension Most recent vitals showed increased blood pressure of 151/80. She has history of hyptertension at home. Plan: - Restarting home atenolol 25mg Qday - Continue to monitor blood pressure Health maintenance Diet: NPO, failed swallow screen, awaiting NG tube GI prophylaxis: Protonix 40 mg IV Daily DVT prophylaxis: Subcutaneous Heparin Injection CODE STATUS: Full code Disposition: Patient is admitted for further workup and management of encephalopathy. -- Patient was seen and discussed with attending physician Dr. Cole and senior residents on service Keaton Garcia D.O. PGY1 Anesthesiology Attending Provider Attestation/Addendum I attest that I was physically present for the evaluation, physical examination, lab and imaging review of the patient with the residents. I discussed the case with the residents and agree with the findings and plans of care as documented above. At bedside today, patient appears more alert but continues to be not fully oriented. She is still unable to answer questions appropriately. Continues to have copious upper airway sections, we will continue with frequent suctioning. NG/OG tube was ordered, but unable to advance the tube despite multiple attempts. We will switch Aspirin from oral to rectal. Patient was unable to have her MRI, MRV brain yesterday, we will attempt again today. We will wait for MRI confirmation of stroke before PEG tube placement as patient has other risk factors for encephalopathy as well. Discussed with GI and Patient's , both are in agreement with PEG placement after MRI if needed. Patient's sodium level continues to be high, we will increase rate for D5W. We will continue with serial sodium level checks. Plan for transition to free water flushes if patient receives the PEG tube. Consider Nephrology consult if does not improve or starts worsening. Patient's blood cultures grew GPCs. Patient also has Port-a-cath for chemotherapy. We will add IV vancomycin and follow up on blood culture results. May have to remove the port depending on the culture results. Fortino Cole MD
--- NOTE | 2024-06-29 09:38 | PCS.ST ---
No improvement in swallowing today. See note for details. Consider non-oral nutrition. ST services will continue.
--- NOTE | 2024-06-29 09:48 | PC.NURSE ---
called Meliza in MRI to coordinate time of MRI with medication needed for patient to remain calm. Meliza agrees to call one hour prior to MRI exam so medication can be provided.
--- NOTE | 2024-06-29 10:39 | PC.DIETICIAN ---
Nutrition recommendations Patient is at significant risk for refeeding syndrome. If NG tube is placed and EN is appropriate, consider: 1. Jevity 1.5 at 20 ml/hr x 24 hrs (do not advance). If no IV fluids, water flushes of 45 ml/hr (or per MD). 2. Thiamine 100mg/day for 7 days; provide first dose at least 30 minutes before starting nutrition. 3. Multivitamins/Minerals. 4. Daily labs for P, K, and Mg; replace as needed. If no electrolytes disturbances after 24 hrs, advance 10 ml every 12 hrs to goal rate of 50 ml/hr x 24 hrs. Continue with water flushes of 45 ml/hr (or per MD).
[2024-06-29 10:53] LABS: Parathyroid Hormone Intact 123.8 pg/ml (18.5-88.0)
--- NOTE | 2024-06-29 11:19 | XR_ITS ---
Examination: AP chest single view Technique one AP portable sitting chest single view Exam date and time: June 29, 2024 1146 hours INDICATIONS: Post orogastric tube placement FINDINGS: Orogastric tube tip mid esophagus Left internal jugular Port-A-Cath tip SVC satisfactory position Suspicious for early bibasilar pneumonia Prominent osteopenia IMPRESSION: Advance the orogastric tube 20 cm
--- NOTE | 2024-06-29 11:24 | PC.NURSE ---
Addendum entered by Anna Don RN 06/29/24 15:51: Per Dr. Sheth do not use implanted port. [facility] ICU i&c tech called to help with IV access. Dr. Sheth aware of attempts to insert NG tube and failure. ordered GI consult for possible stricture. Original Note: Dr Ynes nunez pt. does not have IV access as IV infiltrated and IV access attempts were unsuccessful. Dr. nunez pt. has implanted PORT, Rn requests order to access. Request denied at this time. Per Dr. Sheth I will call you back and let you know whether to access or not.
[2024-06-29 12:00] VITALS: BP 151/91; PULSE 101; PULSE 105; RESP 20; TEMP 36.1; O2SAT 96
[2024-06-29 12:33] LABS: Sodium 151 mMol/L (136-145)
[2024-06-29] MEDS: DiphenhydrAMINE INJ 50 MG/ML VIAL 12.5 MG IV (12:41)
[2024-06-29] MEDS: POT PHOS 15 mMol in NS 250 ML 15 MMOL/250 ML BAG 62.5 MMOL IV ×2 (12:50→18:48)
[2024-06-29] MEDS: DEXTROSE 5%-WATER 1,000 ML 125 ML IV ×2 (14:01→23:44)
[2024-06-29] MEDS: VANCOMYCIN/NS 1 GM IVPB 200 ML IV (14:04)
[2024-06-29] MEDS: Magnesium Sulfate 2 GM Ivpb 2 GM/50 ML BAG IV (14:10)
[2024-06-29] MEDS: POTASSIUM CHL 10 mEq IVPB 10 MEQ/100 ML BAG 100 MEQ IV ×4 (14:11→18:47)
[2024-06-29] MEDS: LORazepam 2 MG/ML VIAL 1 MG IVP (15:17)
[2024-06-29 16:00] VITALS: PULSE 95
--- NOTE | 2024-06-29 16:09 | PC.SS ---
Rounding Note: MRI pending. Possible NG tube placement. Stroke work up in progress.
--- NOTE | 2024-06-29 16:53 | PC.NURSE ---
RN attempted to perform oral care. Pt. refuses, thrashing around yelling no no no! . aware.
--- NOTE | 2024-06-29 19:00 | PD.IMCONS ---
HPI Data of Consult Requesting Physician: Joaquin Pitts DO Primary Care Provider: Physician No Primary/Family Consult Narrative Reason for consult: Dysphagia History of present illness: 78 years old female brought into the emergency room by the ambulance. Because of altered mental status She fell off the bed at home Extensive workup done in the ER CTA neck and brain was positive for 50 mm right thyroid nodule MRI MRI of the brain showed right occipital lobe infarct and a posterior left parietal lobe infarct Patient evaluated this date pathology she has profound dysphagia and she has dementia and no history obtainable from History from the chart review She has a history of hypertension endometrial carcinoma status post cystectomy for stage IV requiring postoperative chemotherapy and radiation therapy cc:: cc: Joaquin Pitts DO Review of Systems Review of Systems ROS Unobtainable: unobtainable due to medical condition Past Medical History Surgical History OTHER SURGICAL HX: As in the history of present illness Meds Home Medications and Allergies Home Medications ?Medication ?Instructions ?Recorded ?Confirmed ?Type atenolol 25 mg tablet 25 mg PO HS ##90 05/21/17 06/29/24 History benztropine 2 mg tablet 2 mg PO BID 11/30/23 06/29/24 History gabapentin 100 mg tablet 100 mg PO HS 06/29/24 06/29/24 History loratadine 10 mg tablet 10 mg PO DAILY PRN Allergy Symptoms 06/29/24 06/29/24 History Allergies Allergy/AdvReac Type Severity Reaction Status Date / Time No Known Allergies Allergy Verified 08/25/22 08:50 Exam Vital Signs Temp Pulse Resp BP Pulse Ox O2 Del Method 97.0 F 95 20 151/91 H 96 Room Air 06/29/24 12:00 06/29/24 16:00 06/29/24 12:00 06/29/24 12:00 06/29/24 12:00 06/29/24 12:00 Constitutional Comments: Chronically ill-appearing Routine Respiratory Exam Comments: Normal to auscultation Routine Abdominal Exam Comments: Soft nontender Results Labs 06/29/24 06:40 06/29/24 11:50 Labs: Short CBC 06/29/24 Range/Units 06:40 WBC 14.0 H D (3.6-11.0) Thou/mm3 Hgb 13.7 (12.0-16.0) g/dL Hct 40.9 (36.0-46.0) % Plt Count 150 (140-440) Thou/mm3 BMP 06/29/24 06/29/24 06/29/24 00:30 06:40 11:50 Sodium 154 H 153 H 151 H Potassium 3.1 L D Chloride 116 H Carbon Dioxide 23.7 BUN 38 H Creatinine 0.9 Glucose 89 Calcium 9.8 Liver Function 06/29/24 Range/Units 06:40 Total Bilirubin 0.7 (0.3-1.2) mg/dL AST 36 H (0-34) U/L ALT 27 (10-49) U/L Alkaline Phosphatase 73 D (46-116) U/L Albumin 3.5 D (3.4-4.8) gm/dL Assessment and Plan Additional Assessment & Plan Additional Plan: # dysphagia in a patient with dementia and recent CVA involving right occipital lobe infarct and a posterior left parietal lobe infarct Plan Fiberoptic esophagogastroduodenoscopy with possible esophageal dilatation possible percutaneous endoscopic gastrostomy tube placement under intravenous moderate sedation scheduled for tomorrow N.p.o. midnight tonight Other medical problems include # Recent CVA involving right occipital lobe and left parietal lobe # Dementia Thank you very much for the opportunity to participate in the care of this patient
[2024-06-29 19:12] LABS: Sodium 151 mMol/L (136-145)
[2024-06-29 20:00] VITALS: BP 151/94; PULSE 88; PULSE 98; RESP 21; TEMP 35.9; O2SAT 98
[2024-06-29] MEDS: VANCOMYCIN/NS 500 MG IVPB 100 ML 120 MG IV (21:52)
--- NOTE | 2024-06-29 23:09 | PD.NEUROCONS ---
History of Present Illness Data of Consult Requesting Physician: Joaquin Pitts DO Primary Care Provider: Physician No Primary/Family Consult Narrative History of present illness: Ms. Diez is a 78-year-old female with baseline dementia, hypertension, stage IV endometrial cancer S/P Hysterectomy and chemotherapy, Shingles was brought in by ambulance to the hospital with complaints of altered mental status. Noted history of recurrent hospitalizations recent one was in 11/2023 Workup in the ER - vitals: blood pressure 130/81 mmHg, pulse rate 117 bpm, respiratory rate 20/min, temperature 100.3 ?F, SpO2 96% with room air -Labs significant for WBC 29.8, Hb 16.5, platelets 275, sodium 147, chloride 109, BUN 88, creatinine 1.9, lactate 3.8, AST 42, ALT 34, LDH 420, creatinine kinase 305, troponins 0.507, procalcitonin 0.38. Urinalysis showed 2+ proteinuria. Urine toxicology tested negative. -Imaging: Chest x-ray showed patchy infiltrate in the right lower base of the right lung. Head CT showed infarct in right parietal lobe. EKG showed sinus tachycardia -Patient was given 2.5 L NS, ceftriaxone, doxycycline -Patient was admitted for acute encephalopathy likely secondary to combined dehydration and stroke. -MRI brain showed acute infarct in the right occipital lobe and left parietal lobe. Neurology was consulted to evaluate further. Patient got admitted to telemetry for management. Negligence was suspected in patient care. cc:: cc: Joaquin Pitts DO Review of Systems Review of Systems ROS Unobtainable: unobtainable due to mental status Past Medical History Surgical History OTHER SURGICAL HX: As in the history of present illness Meds Home Medications and Allergies Home Medications ?Medication ?Instructions ?Recorded ?Confirmed ?Type atenolol 25 mg tablet 25 mg PO HS ##90 05/21/17 06/29/24 History benztropine 2 mg tablet 2 mg PO BID 11/30/23 06/29/24 History gabapentin 100 mg tablet 100 mg PO HS 06/29/24 06/29/24 History loratadine 10 mg tablet 10 mg PO DAILY PRN Allergy Symptoms 06/29/24 06/29/24 History Allergies Allergy/AdvReac Type Severity Reaction Status Date / Time No Known Allergies Allergy Verified 08/25/22 08:50 Exam - Neurology Vital Signs Temp Pulse Resp BP Pulse Ox O2 Del Method 96.6 F L 98 21 H 151/94 H 98 Room Air 06/29/24 20:00 06/29/24 20:00 06/29/24 20:00 06/29/24 20:00 06/29/24 20:00 06/29/24 20:00 Narrative Exam GENERAL APPEARANCE: Well hydrated, well-nourished in no acute distress. HEENT: Normocephalic, atraumatic, extraocular movements intact. Pupils: Equal reacting to light NECK: Supple, no JVD or bruits. CARDIOVASULAR: Heart: S1, S2 heard, regular without S3-S4 or murmur no rubs or gallops. LUNGS/CHEST: Clear to auscultation bilaterally. No rails, rhonchi, or wheezing. Normal inspection. ABDOMEN: Soft, nontender, with normal bowel sounds. No pulsatile masses. No rebound, rigidity, or guarding. Normal inspection and palpation. EXTREMITIES: Normal inspection and palpation. No edema, clubbing or cyanosis. SKIN: Warm and dry without rashes. Normal inspection. MUSCULOSKELETAL: No cervical, thoracic, lumbar or midline bony tenderness. Normal inspection. NEURO: Alert, awake and nonverbal. Brainstem function: Intact. Moves both upper and lower extremities purposefully but not on commands, rest of the exam: Limited, no signs of meningeal irritation noted. PSYCHIATRIC: Limited. Results Labs 06/30/24 05:05 06/30/24 00:22 Labs: Short CBC 06/29/24 Range/Units 06:40 WBC 14.0 H D (3.6-11.0) Thou/mm3 Hgb 13.7 (12.0-16.0) g/dL Hct 40.9 (36.0-46.0) % Plt Count 150 (140-440) Thou/mm3 BMP 06/29/24 06/29/24 06/29/24 00:30 06:40 11:50 Sodium 154 H 153 H 151 H Potassium 3.1 L D Chloride 116 H Carbon Dioxide 23.7 BUN 38 H Creatinine 0.9 Glucose 89 Calcium 9.8 06/29/24 18:47 Sodium 151 H Potassium Chloride Carbon Dioxide BUN Creatinine Glucose Calcium Liver Function 06/29/24 Range/Units 06:40 Total Bilirubin 0.7 (0.3-1.2) mg/dL AST 36 H (0-34) U/L ALT 27 (10-49) U/L Alkaline Phosphatase 73 D (46-116) U/L Albumin 3.5 D (3.4-4.8) gm/dL Assessment & Plan Assessment and plan (1) Acute CVA (cerebrovascular accident): Status: Acute Assessment and plan: With altered mental status: Ischemic encephalopathy and functional dysphagia Noted Dr. Ivan was consulted for PEG tube placement Continue with the CA aspirin for now (2) Pneumonia: Status: Acute Assessment and plan: Continue with IV antibiotics (3) Sepsis: Status: Acute Assessment and plan: Continue with IV antibiotics follow-up with blood culture and sensitivity (4) Dementia: Status: Chronic Assessment and plan: At baseline, not sure about the rehab potential
[2024-06-30] VITALS (22 sets, daily range): BP systolic 118–180; BP diastolic 69–143; PULSE 67–117; RESP 15–26; TEMP 35.8–37; O2SAT 87–100; BMI 19.6
[2024-06-30 01:05] LABS: Sodium 149 mMol/L (136-145)
[2024-06-30] MEDS: HEPARIN SOD INJ 5000 UNIT/ML VIAL SC (05:09)
[2024-06-30] MEDS: AMPICILLIN/SULBAC INJ 3 GM in SODIUM CHLORIDE 0.9% (P) 100 ML IV ×2 (05:09→12:18)
[2024-06-30 06:17] LABS: Basophils % (Auto) 0 % (0-2.5); Eosinophils # (Auto) 0.6 Thou/mm3 (0.0-0.5); Eosinophils % (Auto) 4 % (0-10); Hematocrit 34.6 % (36.0-46.0); Hemoglobin 11.7 g/dL (12.0-16.0); Immature Granulocytes % (Auto) 1 % (0-0); Lymphocytes # (Auto) 1.6 Thou/mm3 (1.0-4.8); Lymphocytes % (Auto) 12 % (10-50); Mean Corpuscular HGB Conc 33.8 g/dl (31.0-37.0); Mean Corpuscular Hemoglobin 29.9 pg (25.0-35.0); Mean Corpuscular Volume 89 fL (80-100); Monocytes # (Auto) 1.8 Thou/mm3 (0.0-0.8); Monocytes % (Auto) 13 % (0-12); Neutrophils # (Auto) 9.7 Thou/mm3 (1.8-7.7); Neutrophils % (Auto) 70 % (37-80); Nucleated Red Blood Cell % 0 /100 WBC (0); Platelet Count 137 Thou/mm3 (140-440); RDW Standard Deviation 48.4 fL (36.4-46.3); Red Blood Count 3.91 Miln/mm3 (4.00-5.20); White Blood Count 13.9 Thou/mm3 (3.6-11.0)
[2024-06-30] MEDS: DEXTROSE 5%-WATER 1,000 ML 125 ML IV (06:18)
[2024-06-30 07:16] LABS: Alanine Aminotransferase 22 U/L (10-49); Albumin, Serum 2.8 gm/dL (3.4-4.8); Albumin/Globulin Ratio 1.2 (1.2-2.2); Alkaline Phosphatase 65 U/L (46-116); Anion Gap 9 (7-16); Aspartate Amino Transferase 30 U/L (0-34); BUN/Creatinine Ratio 27 Ratio (12-20); Bilirubin,Total 0.7 mg/dL (0.3-1.2); Blood Urea Nitrogen 19 mg/dL (9-23); Calcium 8.7 mg/dL (8.3-10.6); Calcium (Corrected) 9.7 mg/dL (8.5-10.1); Carbon Dioxide 22.2 mMol/L (20.0-31.0); Chloride 114 mMol/L (98-107); Creatinine (Component) 0.7 mg/dL (0.6-1.3); Estimated Creatinine Clearance 63.1 mL/min (>60); Globulin 2.3 gm/dL (2.3-3.5); Glucose 120 mg/dL (74-106); Magnesium 1.9 mg/dL (1.6-2.6); Osmolality,Calculated 291 (275-295); Phosphorous 2.6 mg/dL (2.4-5.1); Potassium 3.6 mMol/L (3.4-5.1); Sodium 145 mMol/L (136-145); Total Protein 5.1 gm/dL (5.7-8.2); eGFR > 60 See Note
[2024-06-30 09:02] LABS: Hematocrit 35.7 % (36.0-46.0); Hemoglobin 12.2 g/dL (12.0-16.0)
[2024-06-30] MEDS: VANCOMYCIN/NS 500 MG IVPB 100 ML 120 MG IV ×2 (09:04→22:36)
[2024-06-30] MEDS: PANTOPRAZOLE INJ 40 MG VIAL IVP (09:04)
--- NOTE | 2024-06-30 09:06 | PC.NURSE ---
called to pharmacy for rectal aspirin
[2024-06-30] MEDS: ASPIRIN 300 MG SUPP PR (11:07)
[2024-06-30 11:23] LABS: Sodium 144 mMol/L (136-145)
--- NOTE | 2024-06-30 12:08 | PC.NURSE ---
Attempted to call pt. x3 to obtain consent for Gastro procedure. Unable to reach, phone has a busy tone. Dr. Quick aware.
--- NOTE | 2024-06-30 13:44 | PC.SS ---
HEALTH BENEFITS SPECIALIST attempted phone contact with patient's sposueMerritt [phone]: no response. Line busy, unable to leave message.
[2024-06-30] MEDS: cefTRIAXone/D5w 1gm IV premix 50 ML IV (13:56)
--- NOTE | 2024-06-30 15:04 | PC.SS ---
WATER RESOURCE PROJECT MANAGER attempted phone contact with patient's sposueMerritt [phone]: no response. Line busy, unable to leave message.
--- NOTE | 2024-06-30 15:25 | ESPR_ITS ---
<Statement entered by Tim Carpio MD - 06/30/24 21:42> Patient was seen and examined at the bedside. Patient is alert and oriented more than yesterday however she continued to had upper respiratory secretions with copious amount. Therefore RN performed multiple nasopharyngeal suctioning's today. Patient's was contacted and informed that patient's MRI showed infarction and patient will need PEG tube placement given that the patient has underlying oropharyngeal dysphagia. Patient is scheduled to get PEG tube today. Neuro recommended continuing aspirin CO for now. Blood pressure remained stable. Will continue breathing treatments, Mucomyst and oxygen as needed as patient was desatting today during nasopharyngeal suctioning. Chest x-ray was ordered which showed most likely aspiration pneumonia. ID has been consulted as initial cultures showed 1 bottle GNR another bottle GPC. Will wait on the repeat blood cultures and follow-up on those. No fever spikes were recorded. We added ceftriaxone for aspiration pneumonia coverage and discontinued Unasyn. WBC count 13.9 and hemoglobin stable at 11.7. Potassium was repleted. Kidney functions remained stable. Will likely do goals of care discussion tomorrow morning with patient's as patient is currently high risk for aspiration as per speech therapist evaluation and remains at high risk for desatting and may end up in failure to protect her airways given underlying stroke. Will talk to patient's tomorrow and possibly bring up options including hospice. All labs and orders were reviewed. I saw and examined the patient, and I agree with current management stated by Dr Keaton DO,PGY1. Plan of care was discussed with the attending physician and resident physician. Disclaimer: Despite multiple revisions, due to the dictation software being used, the document bellow may not be free of grammatical errors including phonetic/typographic errors. However, this does not deter from our commitment to providing health care in the patient's best interest in mind. Dr. Shirin MD, PGY 2 Documentation for date of: 06/30/24 Subjective Subjective Interval history: 06/28: Patient examined at bedside. Patient is oriented to person and place but not time. She knows that she is in the hospital but not how she got her. Pt is able to follow simple commands. Eyes track around the room. Complains of some congestion. Denies any chest pain or trouble breathing. 06/29: Patient this a.m. is oriented to person place and time. Appears chronically ill. Patient states that she lives with her , but still does not know how she got to the hospital. Vital signs stable other than blood pressure of 162/89. CBC shows WBC decreasing from 22 to 14. Potassium low at 3.1, phosphorus 2.0, repleted. Patient denies any new symptoms. Preliminary cultures grew gram-positive cocci in blood. Starting on vancomycin, getting repeat blood cultures timed for tomorrow AM draw. Echocardiogram shows normal LV, RV function with negative bubble study. EF predicted at 55 to 60%. Patient unable to get to MRI yesterday, staff say that she was too restless for machine. Will try again today. Multiple attempts to place NG tube failed by floor staff. Consulted Dr. Ivan for placement of NG tube. Had a lengthy discussion with the patient's Merritt regarding NG tube placement as well as possible PEG tube placement. Patient's is in agreement for PEG tube placement if needed. Will start tube feeds as soon as NG tube is in. 06/30: No acute events overnight. Vital signs stable this a.m. Sodium level appears resolved-at 145. Patient has excessive secretions, will desaturate slightly while suctioning. 1 bottle from 06/27 grew staph epidermis, second bottle prelim results show gram-negative rachel. Bottles from 06/29-no growth after 4 hours. Unasyn to ceftriaxone. MRI shows with acute infarct of the right occipital lobe, as well as suspicious tiny infarcts in posterior left parietal lobe. Neuro recommendations state okay with aspirin per rectum for now. Patient consent for PEG tube obtained yesterday during phone call with patient's Merritt. Proceeding with PEG tube placement later today. Exam Vital Signs Temp Pulse Resp BP Pulse Ox O2 Del Method O2 Flow Rate 98.6 F 68 19 132/79 H 95 Nasal Cannula 2 06/30/24 12:58 06/30/24 12:00 06/30/24 12:00 06/30/24 12:00 06/30/24 12:00 06/30/24 12:00 06/30/24 12:00 Narrative Exam Exam limited given altered mental status HEENT: PERRLA. poor dentition. CHEST: Symmetrical, atraumatic, and with equal expansion , Nontender on palpation no deformity and no crepitus. CARDIOVASCULAR: Heart regular rhythm no murmur or gallop rub or extra beats. LUNGS: Clear to auscultation bilaterally with symmetrical chest rise.? No laboring tachypnea or wheezing.? No intercostal subcostal retraction.? No rales and no rhonchi. ABDOMEN: Soft, flat, nontender to palpation, no guarding or rebound tenderness.? There are no abnormal masses palpated.? Active and normal bowel sounds. EXTREMITIES: Nontender.? No edema.? No cyanosis.? Patient able to lift all limbs against gravity. Can wiggle toes. She reports sensation to light touch intact to upper and lower extremities. NEURO: Oriented to person place and time. Patient appears to be mentating normally. Eyes track around the room. 1+ Patella reflexes bilaterally. 1+ Brachioradialis and biceps reflex. Babinski reflex down going. Objective Labs 06/30/24 08:43 06/30/24 10:40 Labs: Laboratory Results - last 24 hr 06/29/24 06/30/24 06/30/24 18:47 00:22 05:05 WBC 13.9 H RBC 3.91 L Hgb 11.7 L D Hct 34.6 L MCV 89 MCH 29.9 MCHC 33.8 RDW Std Deviation 48.4 H Plt Count 137 L Neut % (Auto) 70 Lymph % (Auto) 12 [place] % (Auto) 13 H Eos % (Auto) 4 Baso % (Auto) 0 Neut # (Auto) 9.7 H Lymph # (Auto) 1.6 [place] # (Auto) 1.8 H Eos # (Auto) 0.6 H Baso # (Auto) 0.0 Immature Gran # (Auto) 0.20 H Absolute Nucleated RBC 0.00 Immature Gran % 1 H Nucleated RBC % 0 Sodium 151 H 149 H 145 Potassium 3.6 D Chloride 114 H Carbon Dioxide 22.2 Anion Gap 9 BUN 19 Creatinine 0.7 Estim Creat Clear Calc 63.1 eGFR > 60 BUN/Creatinine Ratio 27 H Glucose 120 H Calculated Osmolality 291 Calcium 8.7 Corrected Calcium 9.7 Phosphorus 2.6 Magnesium 1.9 Total Bilirubin 0.7 AST 30 ALT 22 Alkaline Phosphatase 65 Total Protein 5.1 L Albumin 2.8 L D Globulin 2.3 Albumin/Globulin Ratio 1.2 06/30/24 06/30/24 08:43 10:40 WBC RBC Hgb 12.2 Hct 35.7 L MCV MCH MCHC RDW Std Deviation Plt Count Neut % (Auto) Lymph % (Auto) [place] % (Auto) Eos % (Auto) Baso % (Auto) Neut # (Auto) Lymph # (Auto) [place] # (Auto) Eos # (Auto) Baso # (Auto) Immature Gran # (Auto) Absolute Nucleated RBC Immature Gran % Nucleated RBC % Sodium 144 Potassium Chloride Carbon Dioxide Anion Gap BUN Creatinine Estim Creat Clear Calc eGFR BUN/Creatinine Ratio Glucose Calculated Osmolality Calcium Corrected Calcium Phosphorus Magnesium Total Bilirubin AST ALT Alkaline Phosphatase Total Protein Albumin Globulin Albumin/Globulin Ratio Quality Measures Quality Measures sepsis Current suspected stage: sepsis Possible source: other Blood cultures ordered: yes Antibiotic ordered: Yes Advance care planning discussed with:: patient and spouse Assessment & Plan Assessment Current Active Medications: Generic Name Dose Route Start Last Admin Trade Name Freq PRN Reason Stop Dose Admin Acetaminophen 650 mg 06/28/24 05:22 Acetaminophen Supp 650 Mg Supp CO 07/28/24 05:21 Q6HR PRN PAIN OR FEVER > 101 Acetylcysteine 3 ml 06/30/24 09:24 Acetylcysteine Rt Marian 10% 4 Ml Nebu INH 07/30/24 09:23 Q4HR PRN SHORTNESS OF BREATH OR WHEEZE Protocol Albuterol/Ipratropium 3 ml 06/28/24 12:54 Albuterol/Ipratropium (Duoneb) Rt Marian 3 Ml Nebu INH 07/28/24 13:59 Q4HR PRN SHORTNESS OF BREATH OR WHEEZE Protocol Aspirin 81 mg 06/29/24 10:15 06/29/24 12:50 Aspirin Ec 81 Mg Tabec PO 07/29/24 10:14 Not Given QDAY KRISTAN Aspirin 300 mg 06/30/24 09:00 06/30/24 11:07 Aspirin 300 Mg Supp CO 07/30/24 08:59 300 mg QDAY KRISTAN Administration Atenolol 25 mg 06/29/24 10:15 06/30/24 08:48 Atenolol 25 Mg Tablet PO 07/29/24 10:14 Not Given QDAY KRISTAN Atorvastatin Calcium 80 mg 06/28/24 21:00 06/29/24 20:56 Atorvastatin Calcium 20 Mg Tablet PO 07/28/24 20:59 Not Given HS KRISTAN Dextrose 25 ml 06/28/24 09:50 Dextrose 50%-Water Inj 50 Ml Syringe IV 07/28/24 09:49 Q15MIN PRN BG 50-70 responsive npo pt Dextrose 50 ml 06/28/24 09:50 Dextrose 50%-Water Inj 50 Ml Syringe IV 07/28/24 09:49 Q15MIN PRN BG <50 OR BG <70 & pt unresponsive Glucagon 1 mg 06/28/24 09:50 Glucagon Inj 1 Mg Vial IM Q15MIN PRN BG <70, and no IV access Heparin Sodium (Porcine) 5,000 unit 06/28/24 06:00 06/30/24 13:50 Heparin Sod Inj 5000 Unit/Ml Vial SC 07/12/24 05:59 Not Given Q8HR KRISTAN Vancomycin/Sodium Chloride 100 mls @ 120 mls/hr 06/29/24 22:00 06/30/24 09:04 Vancomycin/Ns 500 Mg Ivpb IV 07/06/24 21:59 120 mls/hr BID@1000,2200 KRISTAN Administration Protocol Ceftriaxone Sodium/Dextrose 50 mls @ 100 mls/hr 06/30/24 13:18 06/30/24 13:56 Rocephin/D5w 1gm Iv Premix IV 07/07/24 13:17 100 mls/hr QDAY KRISTAN Administration Magnesium Hydroxide 30 ml 06/28/24 01:49 Milk Of Magnesia Susp 30 Ml Udc PO 07/28/24 01:48 QDAY PRN CONSTIPATION Protocol Ondansetron HCl 4 mg 06/28/24 01:49 Ondansetron Inj 2 Mg/Ml Inj 2 Ml IV 07/28/24 01:48 Q6H PRN NAUSEA OR VOMITING Protocol Pantoprazole Sodium 40 mg 06/28/24 09:00 06/30/24 09:04 Pantoprazole Inj 40 Mg Vial IVP 07/28/24 08:59 40 mg QDAY KRISTAN Administration Pharmacy Consult 1 each 06/29/24 09:00 Vancomycin Pharmacy To Dose 1 Each Each IV 07/29/24 08:59 QDAY PRN PROTOCOL Plan A 78-year-old female with past medical history of dementia, hypertension, stage IV endometrial cancer S/P Hysterectomy and chemotherapy was brought in by ambulance to the hospital with complaints of altered mental status admitted for further management and work up of encephalopathy. # Acute encephalopathy - Stroke combined with aspiration pneumonia and dehydration # Acute infarcts right occipital lobe # Rule out cortical sinus venous thrombosis # Baseline dementia # Chronically neglected DDx: Dehydration versus sepsis versus oropharyngeal dysphagia leading to poor p.o. intake versus electrolyte disturbance hyponatremia -Patient was brought to the hospital with altered mental status after being found down. -CT head showed hypodensity in right parietal lobe, raising concern for infarct v. sinus venous thrombosis. -CT angio head and neck negative for vessel occlusion -Cervical spine CT showed no fractures -2.5 L NS IV fluids was given in the ED -ECHO shows normal,LV,RV function. Bubble study (-) -MRI shows with acute infarcts in the right occipital lobe, suspicious tiny infarct in the posterior left parietal lobe Plan -Atorvastatin 80 mg HS -Dr. Rangel agrees with continuing aspirin 81 mg per rectum -N.p.o. as of now as patient is high aspiration risk per Speech -Awaiting PEG tube placement with Dr. Ivan -Head of bed elevation #Aspiration pneumonia #Sepsis(Leukocytosis, tachypnea, and tachycardia) #Congestion -Patient presented with fever and altered sensorium -CBC showed elevated WBC, 29.8. Lactate elvated at 3.8. -Chest x-ray showed patchy infiltrate in right lower base -Given leukocytosis, increased respirtaroy rate, and tachycardia patient meets SIRS Criteria of sepsis. Source of infection likely from aspiration pneumonia -Patient has failed bedside swallow at this time. She is having difficulty with clearing congestion. 06/29: No growth after 24 hours on both bottles, pending final cultures MRSA nares negative Plan - Unasyn Stopped today - Starting vancomycin, pharmacy to dose 06/29- - Starting Ceftiaxone 1g day 06/30- - consult infectious disease, appreciate recommendations - Repeat blood cultures ordered 06/29- pending - Failed bedside swallow. Aspiration precautions. NPO. - Acetylcysteine - Chest Physiotherapy - Deep suction as needed #Hyperosmolar Hypernatremia?appears resolved Most recent labs showed increased sodium of 152. Will stop sodium chloride solution and start on hypotonic solution to lower sodium levels Free water deficit 1.3 L today 06/30: Sodium 145 this morning Plan: -Stopping fluids, daily sodium checks with electrolytes -Will continue to monitor -If sodium is persistently high will consult nephrology #Dementia: Patient has history of dementia but unsure of her baseline at this time. Appears to have worsening in setting of acute stroke Plan: - NPO for now due to high concerns for aspiration per Speech - Yard Goods Salesperson consult # Acute kidney injury, likely prerenal in the setting of dehydration- appears resolved Creatinine today normal Monitor a.m. labs # Dehydration # Chronically neglected # Malnutrition Per he states that she has difficulty with oral at baseline, and he only feeds for about 400 ashley a day. Plan: -Will resume diet once PEG tube is in place #Thyroid mass 15 mm right thyroid mass found on imaging TSH and free T4 normal PTH elevated - outpatient follow up. patient will need a detailed work up outpatient. #Troponinemia Initial Troponin in ED resulted 0.507 Repeat in AM downtrended to 0.414 EKG sinus tach Will continue to trend symptoms # History of endometrial cancer s/p bilateral salpingo oophorectomy and hysterectomy and chemotherapy -Patient was diagnosed in 2017 with endometrial cancer due to postmenopausal bleeding -Received treatment in cancer center with chemo -Notes by Dr. Watkins oncologist on 02/2024 - PET/CT scan done on 03/03/2024 showed enlarging intra-abdominal lymph nodes as documented above. Her CA125 has increased to 87 on 02/04/2024. She was not able to get bevacizumab on a regular basis. Her last bevacizumab was given on 11/17/2023. CA125 has increased to 87.0. The patient is clinically doing very well. She is currently on bevacizumab. Tolerating it very well. Progressed on pembrolizumab. Lenvatinib discontinued on 02/12/2022. Patient progressed on topotecan. 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 CA 125 is elevated at 60.0 Plan: - Patient is advised to follow up with Dr. Watkins outpatient #Hypertension - Restarting home atenolol 25mg Qday Health maintenance Diet: NPO, failed swallow screen, awaiting PEG tube GI prophylaxis: Protonix 40 mg IV Daily DVT prophylaxis: Subcutaneous Heparin Injection CODE STATUS: Full code Disposition: Patient is admitted for further workup and management of encephalopathy. -- Patient was seen and discussed with attending physician Dr. Pitts and senior residents on service Keaton Garcia D.O. PGY1 Anesthesiology Attending Provider Attestation/Addendum I have discussed and was present for the essential components of the history, physical examination, diagnosis, and treatment plan with the resident. I agree with the patient's care as documented by the resident and amended herein by me. Aleksey Pitts DO. Patient seen and evaluated this AM. No acute events overnight, 1 culture set demonstrating Staph epidermidis and another GNR. Will continue vancomycin and ceftriaxone for now we will continue to follow with repeat cultures. PEG placement scheduled for today, consent obtained. Will continue aspirin and atorvastatin at this time however I do feel we need a goals of care meeting tomorrow with the patient's which we will attempt to set up. Patient may need to have her port removed depending on ID recommendations and speciation/repeat blood culture results. Will continue to monitor closely, patient's O2 requirements are increasing, likely secondary to aspiration due to the patient's deficits post CVA. Long-term prognosis with this patient is certainly guarded. Although this document has been carefully reviewed, there may still be some phonetic and other typographical errors. These errors are purely grammatical due to imperfections in the software program and should not be construed in any way to compromise the substance of the patient's medical care during this visit.
--- NOTE | 2024-06-30 15:54 | XR_ITS ---
Examination: AP chest single view Technique one AP portable semiupright chest single view Exam date and time: June 30, 2024 1601 hours Comparison June 28, 2024 INDICATIONS: Shortness of breath this week, pneumonia right base on chest film June 28, 2024 FINDINGS: Persistent pneumonia right base Left internal jugular Port-A-Cath tip satisfactory position Minor prominence left ventricle Mild vascular congestion IMPRESSION: Significant pneumonia remains right base
--- NOTE | 2024-06-30 17:55 | SUR.PHASEI ---
Pt. arrived to recovery via gurney, eyes closed, unable to respond appropriately, speech is garbled, VSS, no signs of pain or nausea noted, peg tube in place to left medial abdomen, dressing CDI, pt.'s skin appears very dry and flaky, oral care needs to be established, pt. primarily breaths with mouth open, lung sounds clear with rhonchi noted on inspiration, pt. receiving 4 liters 02 via oxymask, restraints noted in place to lucas. wrists. Report received from Meenu OLVERA.
--- NOTE | 2024-06-30 18:25 | SUR.PHASEI ---
Called and gave report on pt. s/p procedure to Anna OLVERA on telemetry unit.
--- NOTE | 2024-06-30 18:30 | SUR.PHASEI ---
Pt. transferred to room 266 via gurney, eyes closed, VSS, pt. receiving 4 liters 02 via oxymask, no signs of pain or nausea noted, peg tube in place and clamped, applied abdominal binder per order. Anna OLVERA assumed care of pt.
--- NOTE | 2024-06-30 18:38 | PC.NURSE ---
Pt. just returned from Endo, Peg tube placed successfully. Pt. remains on restraints. Per Dr. Ivan start using peg tub NOW. orders placed per Night Shift Supervisor recommendation. Dr. Hargrove aware. Dr. Hargrove aware pt. low urine output, bladder scan shows 413 ml in bladder. orders straight cath.
[2024-06-30] MEDS: THIAMINE 100 MG TABLET GT (19:31)
--- NOTE | 2024-06-30 19:38 | PC.NURSE ---
Dr. Joaquin aware of pt. Blood sugar of 63. Per Dr. Joaquin recheck pt. BG in 30 minutes and if still low then give PRN D50 push, since tube feeds were just started Night nurse Nelsy aware of order
[2024-06-30] MEDS: DEXTROSE 50%-WATER INJ 50 ML SYRINGE 25 ML IV (20:04)
[2024-06-30] MEDS: ATORVASTATIN CALCIUM 20 MG TABLET 80 MG PO (20:05)
--- NOTE | 2024-06-30 23:51 | PD.NEUROPROG ---
Documentation for date of: 06/30/24 Subjective Subjective Interval history: Ms. Diez is a 78-year-old female with baseline dementia, hypertension, stage IV endometrial cancer S/P Hysterectomy and chemotherapy, Shingles was brought in by ambulance to the hospital with complaints of altered mental status. Noted history of recurrent hospitalizations recent one was in 11/2023 Patient just got back from surgery after getting the PEG tube placed. Reportedly no urinary output, bladder scan showed about 400 mL of urine. Exam - Neurology Vital Signs Temp Pulse Resp BP Pulse Ox O2 Del Method O2 Flow Rate 97.1 F 83 18 127/84 100 Nasal Cannula 4 06/30/24 19:53 06/30/24 20:00 06/30/24 19:53 06/30/24 19:53 06/30/24 19:53 06/30/24 19:53 06/30/24 19:53 Narrative Exam GENERAL APPEARANCE: Well hydrated, well-nourished in no acute distress. HEENT: Normocephalic, atraumatic, extraocular movements intact. Pupils: Equal reacting to light NECK: Supple, no JVD or bruits. CARDIOVASULAR: Heart: S1, S2 heard, regular without S3-S4 or murmur no rubs or gallops. LUNGS/CHEST: Clear to auscultation bilaterally. No rails, rhonchi, or wheezing. Normal inspection. ABDOMEN: Soft, nontender, with normal bowel sounds. No pulsatile masses. No rebound, rigidity, or guarding. Normal inspection and palpation. EXTREMITIES: Normal inspection and palpation. No edema, clubbing or cyanosis. SKIN: Warm and dry without rashes. Normal inspection. MUSCULOSKELETAL: No cervical, thoracic, lumbar or midline bony tenderness. Normal inspection. NEURO: under The effect of sedation after the procedure, limited PSYCHIATRIC: Limited. Objective Labs 07/01/24 04:22 07/01/24 04:22 Labs: Laboratory Results - last 24 hr 06/30/24 06/30/24 06/30/24 00:22 05:05 08:43 WBC 13.9 H RBC 3.91 L Hgb 11.7 L D 12.2 Hct 34.6 L 35.7 L MCV 89 MCH 29.9 MCHC 33.8 RDW Std Deviation 48.4 H Plt Count 137 L Neut % (Auto) 70 Lymph % (Auto) 12 [place] % (Auto) 13 H Eos % (Auto) 4 Baso % (Auto) 0 Neut # (Auto) 9.7 H Lymph # (Auto) 1.6 [place] # (Auto) 1.8 H Eos # (Auto) 0.6 H Baso # (Auto) 0.0 Immature Gran # (Auto) 0.20 H Absolute Nucleated RBC 0.00 Immature Gran % 1 H Nucleated RBC % 0 Sodium 149 H 145 Potassium 3.6 D Chloride 114 H Carbon Dioxide 22.2 Anion Gap 9 BUN 19 Creatinine 0.7 Estim Creat Clear Calc 63.1 eGFR > 60 BUN/Creatinine Ratio 27 H Glucose 120 H Calculated Osmolality 291 Calcium 8.7 Corrected Calcium 9.7 Phosphorus 2.6 Magnesium 1.9 Total Bilirubin 0.7 AST 30 ALT 22 Alkaline Phosphatase 65 Total Protein 5.1 L Albumin 2.8 L D Globulin 2.3 Albumin/Globulin Ratio 1.2 Vancomycin Trough 06/30/24 06/30/24 10:40 21:35 WBC RBC Hgb Hct MCV MCH MCHC RDW Std Deviation Plt Count Neut % (Auto) Lymph % (Auto) [place] % (Auto) Eos % (Auto) Baso % (Auto) Neut # (Auto) Lymph # (Auto) [place] # (Auto) Eos # (Auto) Baso # (Auto) Immature Gran # (Auto) Absolute Nucleated RBC Immature Gran % Nucleated RBC % Sodium 144 Potassium Chloride Carbon Dioxide Anion Gap BUN Creatinine Estim Creat Clear Calc eGFR BUN/Creatinine Ratio Glucose Calculated Osmolality Calcium Corrected Calcium Phosphorus Magnesium Total Bilirubin AST ALT Alkaline Phosphatase Total Protein Albumin Globulin Albumin/Globulin Ratio Vancomycin Trough 13.0 H Assessment & Plan Assessment and plan (1) Acute CVA (cerebrovascular accident): Status: Acute Assessment and plan: With altered mental status: Ischemic encephalopathy and functional dysphagia Noted Dr. Ivan did PEG tube placement this gui. Continue with the [place] aspirin for now (2) Pneumonia: Status: Acute Assessment and plan: Continue with IV antibiotics (3) Sepsis: Status: Acute Assessment and plan: Continue with IV antibiotics follow-up with blood culture and sensitivity (4) Dementia: Status: Chronic Assessment and plan: At baseline, not sure about the rehab potential
[2024-07-01] VITALS (8 sets, daily range): BP systolic 125–174; BP diastolic 75–103; PULSE 70–112; RESP 16–23; TEMP 36–36.6; O2SAT 92–100; BMI 19.6
[2024-07-01] MEDS: HEPARIN SOD INJ 5000 UNIT/ML VIAL SC ×2 (03:33→17:41)
[2024-07-01 05:33] LABS: Basophils % (Auto) 0 % (0-2.5); Eosinophils # (Auto) 0.6 Thou/mm3 (0.0-0.5); Eosinophils % (Auto) 4 % (0-10); Hematocrit 37.1 % (36.0-46.0); Hemoglobin 12.8 g/dL (12.0-16.0); Immature Granulocytes % (Auto) 2 % (0-0); Immature Granulocytes Auto 0.24 Thou/mm3 (0.00-0.00); Lymphocytes # (Auto) 1.7 Thou/mm3 (1.0-4.8); Lymphocytes % (Auto) 11 % (10-50); Mean Corpuscular HGB Conc 34.5 g/dl (31.0-37.0); Mean Corpuscular Volume 87 fL (80-100); Monocytes # (Auto) 1.6 Thou/mm3 (0.0-0.8); Monocytes % (Auto) 11 % (0-12); Neutrophils # (Auto) 10.7 Thou/mm3 (1.8-7.7); Neutrophils % (Auto) 72 % (37-80); Nucleated Red Blood Cell % 0 /100 WBC (0); Platelet Count 139 Thou/mm3 (140-440); RDW Standard Deviation 48.1 fL (36.4-46.3); Red Blood Count 4.27 Miln/mm3 (4.00-5.20); White Blood Count 14.9 Thou/mm3 (3.6-11.0)
[2024-07-01 06:06] LABS: Alanine Aminotransferase 18 U/L (10-49); Albumin, Serum 2.7 gm/dL (3.4-4.8); Albumin/Globulin Ratio 1.1 (1.2-2.2); Alkaline Phosphatase 66 U/L (46-116); Anion Gap 9 (7-16); Aspartate Amino Transferase 22 U/L (0-34); BUN/Creatinine Ratio 21 Ratio (12-20); Bilirubin,Total 0.5 mg/dL (0.3-1.2); Blood Urea Nitrogen 15 mg/dL (9-23); Calcium 8.7 mg/dL (8.3-10.6); Calcium (Corrected) 9.7 mg/dL (8.5-10.1); Carbon Dioxide 20.9 mMol/L (20.0-31.0); Chloride 110 mMol/L (98-107); Creatinine (Component) 0.7 mg/dL (0.6-1.3); Estimated Creatinine Clearance 63.1 mL/min (>60); Globulin 2.4 gm/dL (2.3-3.5); Glucose 111 mg/dL (74-106); Magnesium 1.8 mg/dL (1.6-2.6); Osmolality,Calculated 281 (275-295); Phosphorous 2.2 mg/dL (2.4-5.1); Sodium 140 mMol/L (136-145); Total Protein 5.1 gm/dL (5.7-8.2); eGFR > 60 See Note
[2024-07-01] MEDS: PANTOPRAZOLE INJ 40 MG VIAL IVP (08:32)
[2024-07-01] MEDS: atenoloL 25 MG TABLET PO (08:32)
[2024-07-01] MEDS: cefTRIAXone/D5w 1gm IV premix 50 ML IV (08:34)
[2024-07-01] MEDS: THIAMINE 100 MG TABLET GT (09:42)
[2024-07-01] MEDS: NAPH,KPH MBDB 1 PACKET (1.5 GM) 2 PACKET PO (09:43)
[2024-07-01] MEDS: Magnesium Sulfate 2 GM Ivpb 2 GM/50 ML BAG IV (09:43)
[2024-07-01] MEDS: VANCOMYCIN/NS 500 MG IVPB 100 ML 120 MG IV (09:59)
[2024-07-01] MEDS: ASPIRIN 300 MG SUPP PR (09:59)
--- NOTE | 2024-07-01 10:32 | PC.SS ---
POLST form completed with patient's spouse, Merritt Diez. Copy placed in patient's chart. Spouse does not want to purse hospice on behalf of the patient. D/C plan is to transition patient to SNF.
--- NOTE | 2024-07-01 11:02 | PC.SS ---
SNF referral submitted on [employer] [facility] platform. Responses are pending.
--- NOTE | 2024-07-01 11:07 | PC.SS ---
PASSR completed. Results indicate that a Level II Mental Health Evaluation referral is not required due to a Categorical Condition. PASSR follow up pending.
--- NOTE | 2024-07-01 13:17 | PD.RESPRO ---
Documentation for date of: 07/01/24 Subjective Subjective Interval history: Patient examined at bedside No acute overnight events. Patient has been unable to pass swallow evaluation and has difficulty clearing mucus secretions. Was unable to place NG tube despite multiple attempts so PEG tube was placed yesterday. Patient remains altered as she knows her name and that she is in the hospital but does not know the city or the time. She is unable to recall why she is in the hospital or how she got her. is with her at bedside. Had extensive discussion with patients about goals of care and was decided that patient would be changed from full code to DNR. The patient denies any headache, chest pain, abdominal pain, Nausea or vomiting. Exam Vital Signs Temp Pulse Resp BP Pulse Ox O2 Del Method O2 Flow Rate 97.6 F 94 21 H 174/78 H 100 Oxy Mask 3 07/01/24 08:00 07/01/24 08:32 07/01/24 08:00 07/01/24 08:32 07/01/24 08:00 07/01/24 08:00 07/01/24 08:00 Narrative Exam HEENT: Pupils are 1mm in size and minimally responsive to light. CHEST: Symmetrical, atraumatic, and with equal expansion , Nontender on palpation no deformity and no crepitus. CARDIOVASCULAR: Heart regular rhythm no murmur or gallop rub or extra beats. LUNGS: Clear to auscultation bilaterally with symmetrical chest rise.? No laboring tachypnea or wheezing.? No intercostal subcostal retraction.? No rales and no rhonchi. ABDOMEN: Soft, flat, nontender to palpation, no guarding or rebound tenderness.? There are no abnormal masses palpated.? Active and normal bowel sounds. EXTREMITIES: Patient in restraints but able to lift up her limbs against gravity. Sensation to light touch intact to upper and lower extremity. No edema noted. NEURO: Patient is alert to person and knows she is in the hospital but does not know the city or the time. Difficultly to assess speech given her congestion Cranial nerves: Her eyes track around the room. Is able to lift eyebrows. Sensation to light touch intact on face. Patient able to stick out tongue but has difficulty swallowing. 1+ patellar refelxes. 1+ biceps reflexes bilaterally Gait testing deferred Objective Labs 07/01/24 04:22 07/01/24 04:22 Labs: Laboratory Results - last 24 hr 06/30/24 07/01/24 21:35 04:22 WBC 14.9 H RBC 4.27 Hgb 12.8 Hct 37.1 MCV 87 MCH 30.0 MCHC 34.5 RDW Std Deviation 48.1 H Plt Count 139 L Neut % (Auto) 72 Lymph % (Auto) 11 Daniels % (Auto) 11 Eos % (Auto) 4 Baso % (Auto) 0 Neut # (Auto) 10.7 H Lymph # (Auto) 1.7 Daniels # (Auto) 1.6 H Eos # (Auto) 0.6 H Baso # (Auto) 0.0 Immature Gran # (Auto) 0.24 H Absolute Nucleated RBC 0.00 Immature Gran % 2 H Nucleated RBC % 0 Sodium 140 Potassium 4.0 Chloride 110 H Carbon Dioxide 20.9 Anion Gap 9 BUN 15 Creatinine 0.7 Estim Creat Clear Calc 63.1 eGFR > 60 BUN/Creatinine Ratio 21 H Glucose 111 H Calculated Osmolality 281 Calcium 8.7 Corrected Calcium 9.7 Phosphorus 2.2 L Magnesium 1.8 Total Bilirubin 0.5 AST 22 ALT 18 Alkaline Phosphatase 66 Total Protein 5.1 L Albumin 2.7 L Globulin 2.4 Albumin/Globulin Ratio 1.1 L Vancomycin Trough 13.0 H Quality Measures Quality Measures sepsis Possible source: other Blood cultures ordered: yes Assessment & Plan Assessment Current Active Medications: Generic Name Dose Route Start Last Admin Trade Name Freq PRN Reason Stop Dose Admin Acetaminophen 650 mg 06/28/24 05:22 Acetaminophen Supp 650 Mg Supp [place] 07/28/24 05:21 Q6HR PRN PAIN OR FEVER > 101 Acetylcysteine 3 ml 06/30/24 09:24 Acetylcysteine Rt Marian 10% 4 Ml Nebu INH 07/30/24 09:23 Q4HR PRN SHORTNESS OF BREATH OR WHEEZE Protocol Albuterol/Ipratropium 3 ml 06/28/24 12:54 Albuterol/Ipratropium (Duoneb) Rt Marian 3 Ml Nebu INH 07/28/24 13:59 Q4HR PRN SHORTNESS OF BREATH OR WHEEZE Protocol Amoxicillin/Clavulanate Potassium 1 tab 07/01/24 21:00 Amoxicillin/Pot Clav 875 Tablet PO 07/08/24 20:59 BID KRISTAN Aspirin 81 mg 06/29/24 10:15 06/29/24 12:50 Aspirin Ec 81 Mg Tabec PO 07/29/24 10:14 Not Given QDAY KRISTAN Aspirin 300 mg 06/30/24 09:00 07/01/24 09:59 Aspirin 300 Mg Supp [place] 07/30/24 08:59 300 mg QDAY KRISTAN Administration Atenolol 25 mg 06/29/24 10:15 07/01/24 08:32 Atenolol 25 Mg Tablet PO 07/29/24 10:14 25 mg QDAY KRISTAN Administration Atorvastatin Calcium 80 mg 06/28/24 21:00 06/30/24 20:05 Atorvastatin Calcium 20 Mg Tablet PO 07/28/24 20:59 80 mg HS KRISTAN Administration Dextrose 25 ml 06/28/24 09:50 06/30/24 20:04 Dextrose 50%-Water Inj 50 Ml Syringe IV 07/28/24 09:49 25 ml Q15MIN PRN Administration BG 50-70 responsive npo pt Dextrose 50 ml 06/28/24 09:50 Dextrose 50%-Water Inj 50 Ml Syringe IV 07/28/24 09:49 Q15MIN PRN BG <50 OR BG <70 & pt unresponsive Glucagon 1 mg 06/28/24 09:50 Glucagon Inj 1 Mg Vial IM Q15MIN PRN BG <70, and no IV access Heparin Sodium (Porcine) 5,000 unit 06/30/24 15:45 07/01/24 03:33 Heparin Sod Inj 5000 Unit/Ml Vial SC 07/14/24 15:44 5,000 unit Q12H KRISTAN Administration Magnesium Hydroxide 30 ml 06/28/24 01:49 Milk Of Magnesia Susp 30 Ml Udc PO 07/28/24 01:48 QDAY PRN CONSTIPATION Protocol Ondansetron HCl 4 mg 06/28/24 01:49 Ondansetron Inj 2 Mg/Ml Inj 2 Ml IV 07/28/24 01:48 Q6H PRN NAUSEA OR VOMITING Protocol Pantoprazole Sodium 40 mg 06/28/24 09:00 07/01/24 08:32 Pantoprazole Inj 40 Mg Vial IVP 07/28/24 08:59 40 mg QDAY KRISTAN Administration Thiamine HCl 100 mg 06/30/24 18:45 07/01/24 09:42 Thiamine 100 Mg Tablet GT 07/07/24 18:44 100 mg QDAY KRISTAN Administration Plan A 78-year-old female with past medical history of dementia, hypertension, stage IV endometrial cancer S/P Hysterectomy and chemotherapy was brought in by ambulance to the hospital with complaints of altered mental status admitted for further management and work up of encephalopathy. # Acute encephalopathy - Stroke combined with aspiration pneumonia and dehydration # Acute infarcts right occipital lobe # Rule out cortical sinus venous thrombosis # Baseline dementia # Chronically neglected DDx: Dehydration versus sepsis versus oropharyngeal dysphagia leading to poor p.o. intake versus electrolyte disturbance hyponatremia -Patient was brought to the hospital with altered mental status after being found down. Diagnostics: -CT head showed hypodensity in right occipital lobe, raising concern for infarct v. sinus venous thrombosis. -CT angio head and neck negative for vessel occlusion -Cervical spine CT showed no fractures -ECHO shows normal,LV,RV function. Bubble study (-) -MRI shows with acute infarcts in the right occipital lobe, suspicious tiny infarct in the posterior left parietal lobe Plan -Atorvastatin 80 mg HS -Dr. Rangel agrees with continuing aspirin 81 mg per rectum -N.p.o. as of now as patient is high aspiration risk per Speech -PEG tube placed -Head of bed elevation #Aspiration pneumonia #Sepsis(Leukocytosis, tachypnea, and tachycardia) #Congestion -Patient presented with fever and altered sensorium -CBC showed elevated WBC, 29.8. Lactate elvated at 3.8. -Chest x-ray showed patchy infiltrate in right lower base -Given leukocytosis, increased respirtaroy rate, and tachycardia patient meets SIRS Criteria of sepsis. Source of infection likely from aspiration pneumonia -Patient has failed bedside swallow at this time. She is having difficulty with clearing congestion. 06/29: No growth after 24 hours on both bottles, pending final cultures MRSA nares negative Plan - Unasyn Stopped today - Starting vancomycin, pharmacy to dose 06/29- - Starting Ceftiaxone 1g day 06/30- - consult infectious disease, appreciate recommendations - Repeat blood cultures ordered 06/29- pending - Failed bedside swallow. Aspiration precautions. NPO. - Acetylcysteine - Chest Physiotherapy - Deep suction as needed #Hyperosmolar Hypernatremia?appears resolved Most recent labs showed increased sodium of 152. Will stop sodium chloride solution and start on hypotonic solution to lower sodium levels Free water deficit 1.3 L today 06/30: Sodium 145 this morning Plan: -Stopping fluids, daily sodium checks with electrolytes -Will continue to monitor -If sodium is persistently high will consult nephrology #Dementia: Patient has history of dementia but unsure of her baseline at this time. Appears to have worsening in setting of acute stroke Plan: - NPO for now due to high concerns for aspiration per Speech - Industrial Gas Production [employer] consult # Acute kidney injury, likely prerenal in the setting of dehydration- appears resolved Creatinine today normal Monitor a.m. labs # Dehydration # Chronically neglected # Malnutrition Per he states that she has difficulty with oral at baseline, and he only feeds for about 400 ashley a day. Plan: -Will resume diet once PEG tube is in place #Thyroid mass 15 mm right thyroid mass found on imaging TSH and free T4 normal PTH elevated - outpatient follow up. patient will need a detailed work up outpatient. #Troponinemia Initial Troponin in ED resulted 0.507 Repeat in AM downtrended to 0.414 EKG sinus tach Will continue to trend symptoms # History of endometrial cancer s/p bilateral salpingo oophorectomy and hysterectomy and chemotherapy -Patient was diagnosed in 2016 with endometrial cancer due to postmenopausal bleeding -Received treatment in cancer center with chemo -Notes by Dr. Watkins oncologist on 02/2024 - PET/CT scan done on 03/03/2024 showed enlarging intra-abdominal lymph nodes as documented above. Her CA125 has increased to 87 on 02/04/2024. She was not able to get bevacizumab on a regular basis. Her last bevacizumab was given on 11/17/2023. CA125 has increased to 87.0. The patient is clinically doing very well. She is currently on bevacizumab. Tolerating it very well. Progressed on pembrolizumab. Lenvatinib discontinued on 02/12/2022. Patient progressed on topotecan. 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 CA 125 is elevated at 60.0 Plan: - Patient is advised to follow up with Dr. Watkins outpatient #Hypertension - Restarting home atenolol 25mg Qday
--- NOTE | 2024-07-01 14:45 | ESDS_ITS ---
Planned Discharge Date 07/01/24 DS: Providers Provider Date of admission: 06/28/24 01:46 Primary care physician: Physician No Primary/Family Admitting Provider: Herman Cortez MD Attending Provider on Admission: Joaquin Pitts DO Consults: 06/28/24 05:05 Consult to Neurology / Tele-Neurology Stat Comment: stroke Consulting Provider: Germain Rangel 06/28/24 05:16 Referral Speech Therapy Routine Comment: 06/28/24 09:49 Referral Speech Therapy Stat Comment: 06/28/24 10:05 Referral Registered Dietitian Stat Comment: 06/29/24 07:58 Referral Physical Therapy Urgent Comment: Physician Instructions: 06/29/24 13:24 Consult to Gastroenterology Stat Comment: Consulting Provider: Daniella Ivan 06/30/24 12:00 Consult to Infectious Diseases Routine Comment: Consulting Provider: Tesfaye Bueno 06/30/24 17:54 Referral Registered Dietitian Urgent Comment: Instructions: new peg tube insertion Attending Provider on DC: YAMILET Clifton Discharging Provider: YAMILET Clifton DS: Diagnosis Problem List Completed Was Problem List Reviewed/Reconciled?: Yes Hospital Course Hospital Course Hospital course: Hospital Course: Christin Diez is an 78 year old woman with past medical history of dementia, hypertension, stage IV endometrial cancer S/P Hysterectomy and chemotherapy and shingles who was brought in by ambulance after being found down with altered mental status and admitted for further workup. She was found to have acute stroke with aspiration pneumonia. She presented with tachycardia, fever and tachypnea. Labs were significant for leukocytosis, thrombocytosis, hyponatremia, lactic acidosis, troponin elevation. Chest x-ray was significant for patchy infiltrates suggestive of pneumonia and cultures revealed gram- negative rods 1/2 and GPC in other bottle however repeat blood cultures were negative. Therefore we did not plan to remove the port a cath. We managed the patient with IV ceftriaxone and vancomycin was discontinued. Head CT and MRI suggestive of acute infarct in right occipital lobe. Patient underwent echocardiogram as part of stroke work up which showed normal LV, RV function and EF of 55-60% and no evidence of thrombus. Neurology recommended to continue with aspirin 81 mg once daily only. We perform frequent nasopharyngeal suctioning due to excessive secretions and dysphagia. Patient failed swallow screen and NG tube placement therefore PEG tube was placed by GI specialist. Goals of care discussion was performed today with patient's regarding CODE STATUS and patient was changed to DNR and POLST form was signed in the presence of attending and RN with director social service. Patient's wanted to send the patient to facility and did not wanted to proceed with hospice for now. Patient is medically stable to be discharged today to long-term facility. Patient is accepted under [facility]. Discharge plan: Plan to discharge to long-term facility. Discharged on the following medications: Acetylcysteine 100 mg/ml every 4 hours as needed, Augmentin 875-125 mg 1 tab bid for 1 week, ASA 81 mg daily, Atorvastatin 80 mg daily, ipratropium-albuterol 0.5 mg-3 mg(2.5 mg base)/3 mL Solution For Nebulization, pantoprazole 40 mg for 2 weeks, multivitamin daily, loratadine 10 mg daily as needed for allergies, atenolol 25 mg daily as needed, benztropine 2mg tab bid. Discharge Diagnosis: #Acute encephalopathy - Stroke combined with aspiration pneumonia and dehydrat ion #Acute infarcts right occipital lobe #Baseline dementia #Aspiration pneumonia - on antibiotics #Sepsis(Leukocytosis, tachypnea, and tachycardia), resolved #Congestion #Hyperosmolar Hypernatremia? resolved #Thyroid Mass #Tropinemia, downtrending #Hypokalemia, resolved #History of endometrial cancer s/p bilateral salpingo oophorectomy and hysterectomy and chemotherapy Patient was seen and discussed with attending physician, Dr. Gisselle Carpio MD, PGY 2 Time Spent with Patient Time attestation: Total time spent providing and/or coordinating discharge services: Exam Vital Signs Temp Pulse Resp BP Pulse Ox O2 Del Method O2 Flow Rate 96.8 F 70 19 136/78 H 97 Oxy Mask 1 07/01/24 12:00 07/01/24 13:56 07/01/24 13:56 07/01/24 12:00 07/01/24 13:56 07/01/24 12:00 07/01/24 13:56 Narrative Exam General: Patient resting in bed. CHEST: Symmetrical, atraumatic, and with equal expansion , Nontender on palpation no deformity and no crepitus. CARDIOVASCULAR: Heart regular rhythm no murmur or gallop rub or extra beats. LUNGS: Rhonchi noted ABDOMEN: Soft, flat, nontender to palpation, no guarding or rebound tenderness.? There are no abnormal masses palpated.? Active and normal bowel sounds. EXTREMITIES: Able to lift all extremities against gravity. Able to wiggle toes. Sensation to light touch intact to upper and lower extremities. No edema noted. NEURO: Patient is alert to person and knows that she is in the hospital but does not know the year or month. Speech difficulty to assess given copiuos mucus secretions Cranial nerves: Pupils 1 mm and minimally reactive to light. Extraoccular movements intact. Sensation to light touch intact. Able to raise eyebrows. Sticks out tongue. Dysphagia noted. Reflexes: Patellar reflex 1+ bilaterally. Biceps reflexes 1+ bilaterally Gait testing Deferred Discharge Plan Plan Patient Disposition: Xfer Skilled Nsg Fac ([facility]) Care Plan Goals: Take all medications as prescribed Take Augmentin 875 mg 1 tablet twice daily for 7 days to complete antibiotic course Take aspirin 81 mg for stroke prevention Take amlodipine 5 Continue tube feedings and medications via PEG tube Continue frequent suctioning at [facility] Follow-up with PCP as outpatient within 2 weeks Patient is getting discharged to long-term facility at [facility] In case of emergency, call 911 or come back to the ED Prescriptions/Referrals Prescriptions/Med Rec: New thiamine mononitrate (vit B1) 100 mg tablet 100 mg feeding tube QDAY 30 Days Qty: 30 0RF magnesium hydroxide [Milk of Magnesia] 400 mg/5 mL Suspension 30 ml feeding tube QDAY PRN (Reason: Constipation) Qty: 3780 0RF amoxicillin-pot clavulanate 875-125 mg Tablet 1 tab feeding tube BID 7 Days Qty: 14 0RF aspirin 81 mg capsule 81 mg feeding tube QDAY Qty: 30 0RF ipratropium-albuterol 0.5 mg-3 mg(2.5 mg base)/3 mL Solution For Nebulization 3 ml INH Q4HR PRN (Reason: Shortness Of Breath Or Wheeze) 30 Days Qty: 30 0RF acetylcysteine 100 mg/mL (10 %) Solution 3 ml INH Q4HR PRN (Reason: Shortness Of Breath Or Wheeze) Qty: 30 0RF atorvastatin 80 mg tablet 80 mg feeding tube HS 30 Days Qty: 30 0RF pantoprazole [Protonix] [address] for susp in packet 40 mg feeding tube QDAY 14 Days Qty: 30 0RF multivitamin [Daily Multi-Vitamin] Tablet 1 tab feeding tube QDAY Qty: 30 0RF Changed loratadine 10 mg tablet 10 mg feeding tube DAILY PRN (Reason: Allergy Symptoms) Qty: 30 0RF Patient Comments: take 1 tablet by mouth once daily if needed for allergies atenolol 25 MG tablet 25 mg feeding tube HS Qty: 90 0RF benztropine 2 mg tablet 2 mg feeding tube BID 30 Days Qty: 60 0RF Patient Comments: take 1 tablet by mouth twice a day Discontinued gabapentin 100 mg Tablet 100 mg PO HS Referrals: No Primary/Family,Physician [Primary Care Provider] - Patient/Caregiver Discharge Instructions Education Materials: Stroke: Resources and Support, Stroke: Tips for Swallowing Print Language: Lebanese Stand Alone Forms: Ani Award Info., Patient Portal Info Letter Discharge Order Discharge Orders: Discharge (Routine); Ordered 07/02/24 Ordered By: Tim Carpio Quality Discharge Quality Measures VTE prophylaxis Attestestation Attestation Failed discharge today, SNF authorization pending. Dr. Pitts
--- NOTE | 2024-07-01 14:50 | PD.RESPRO ---
Documentation for date of: 07/01/24 Subjective Subjective Interval history: Patients was contacted and called for goals of care discussion. Attending Physician informed the patients that patient is not doing well and stroke affected her mentation, ability to swallow and she is on high risk of aspiration due to effects of stroke on her vocal cords and laryngeal muscles. Patient's reported that he is more open to send the patient to SNF and does not want to proceed with hospice for now due to insurance coverage/financial reasons. Patient's was explained that patient is currently on antibiotic therapy for aspiration pneumonia and will only get aspirin to prevent further stroke. Patient will be continued as CODE STATUS DNR and POLST form was signed in in the presence of social media content specialist. However patient will be discharged likely tomorrow to SNF without hospice. mud jack nozzle worker was updated regarding the plan. Exam Vital Signs Temp Pulse Resp BP Pulse Ox O2 Del Method O2 Flow Rate 96.8 F 70 19 136/78 H 97 Oxy Mask 1 07/01/24 12:00 07/01/24 13:56 07/01/24 13:56 07/01/24 12:00 07/01/24 13:56 07/01/24 12:00 07/01/24 13:56 Narrative Exam Exam limited given altered mental status HEENT: PERRLA. poor dentition. CHEST: Symmetrical, atraumatic, and with equal expansion , Nontender on palpation no deformity and no crepitus. CARDIOVASCULAR: Heart regular rhythm no murmur or gallop rub or extra beats. LUNGS: Clear to auscultation bilaterally with symmetrical chest rise.? No laboring tachypnea or wheezing.? No intercostal subcostal retraction.? No rales and no rhonchi. ABDOMEN: Soft, flat, nontender to palpation, no guarding or rebound tenderness.? There are no abnormal masses palpated.? Active and normal bowel sounds. EXTREMITIES: Nontender.? No edema.? No cyanosis.? Patient able to lift all limbs against gravity. Can wiggle toes. She reports sensation to light touch intact to upper and lower extremities. NEURO: Oriented to person place and time. Patient appears to be mentating normally. Eyes track around the room. 1+ Patella reflexes bilaterally. 1+ Brachioradialis and biceps reflex. Babinski reflex down going. Objective Labs 07/02/24 05:14 07/02/24 05:14 Labs: Laboratory Results - last 24 hr 06/30/24 07/01/24 21:35 04:22 WBC 14.9 H RBC 4.27 Hgb 12.8 Hct 37.1 MCV 87 MCH 30.0 MCHC 34.5 RDW Std Deviation 48.1 H Plt Count 139 L Neut % (Auto) 72 Lymph % (Auto) 11 [place] % (Auto) 11 Eos % (Auto) 4 Baso % (Auto) 0 Neut # (Auto) 10.7 H Lymph # (Auto) 1.7 [place] # (Auto) 1.6 H Eos # (Auto) 0.6 H Baso # (Auto) 0.0 Immature Gran # (Auto) 0.24 H Absolute Nucleated RBC 0.00 Immature Gran % 2 H Nucleated RBC % 0 Sodium 140 Potassium 4.0 Chloride 110 H Carbon Dioxide 20.9 Anion Gap 9 BUN 15 Creatinine 0.7 Estim Creat Clear Calc 63.1 eGFR > 60 BUN/Creatinine Ratio 21 H Glucose 111 H Calculated Osmolality 281 Calcium 8.7 Corrected Calcium 9.7 Phosphorus 2.2 L Magnesium 1.8 Total Bilirubin 0.5 AST 22 ALT 18 Alkaline Phosphatase 66 Total Protein 5.1 L Albumin 2.7 L Globulin 2.4 Albumin/Globulin Ratio 1.1 L Vancomycin Trough 13.0 H Quality Measures Quality Measures sepsis Current suspected stage: sepsis Possible source: other Blood cultures ordered: yes Antibiotic ordered: No Advance care planning discussed with:: patient Assessment & Plan Assessment Current Active Medications: Generic Name Dose Route Start Last Admin Trade Name Freq PRN Reason Stop Dose Admin Acetaminophen 650 mg 06/28/24 05:22 Acetaminophen Supp 650 Mg Supp [place] 07/28/24 05:21 Q6HR PRN PAIN OR FEVER > 101 Acetylcysteine 3 ml 06/30/24 09:24 Acetylcysteine Rt Marian 10% 4 Ml Nebu INH 07/30/24 09:23 Q4HR PRN SHORTNESS OF BREATH OR WHEEZE Protocol Albuterol/Ipratropium 3 ml 06/28/24 12:54 Albuterol/Ipratropium (Duoneb) Rt Marian 3 Ml Nebu INH 07/28/24 13:59 Q4HR PRN SHORTNESS OF BREATH OR WHEEZE Protocol Amoxicillin/Clavulanate Potassium 1 tab 07/01/24 21:00 Amoxicillin/Pot Clav 875 Tablet PO 07/08/24 20:59 BID KRISTAN Aspirin 81 mg 07/02/24 09:00 Aspirin Ec 81 Mg Tabec PO 08/01/24 08:59 QDAY KRISTAN Atenolol 25 mg 06/29/24 10:15 07/01/24 08:32 Atenolol 25 Mg Tablet PO 07/29/24 10:14 25 mg QDAY KRISTAN Administration Atorvastatin Calcium 80 mg 06/28/24 21:00 06/30/24 20:05 Atorvastatin Calcium 20 Mg Tablet PO 07/28/24 20:59 80 mg HS KRISTAN Administration Dextrose 25 ml 06/28/24 09:50 06/30/24 20:04 Dextrose 50%-Water Inj 50 Ml Syringe IV 07/28/24 09:49 25 ml Q15MIN PRN Administration BG 50-70 responsive npo pt Dextrose 50 ml 06/28/24 09:50 Dextrose 50%-Water Inj 50 Ml Syringe IV 07/28/24 09:49 Q15MIN PRN BG <50 OR BG <70 & pt unresponsive Glucagon 1 mg 06/28/24 09:50 Glucagon Inj 1 Mg Vial IM Q15MIN PRN BG <70, and no IV access Heparin Sodium (Porcine) 5,000 unit 06/30/24 15:45 07/01/24 03:33 Heparin Sod Inj 5000 Unit/Ml Vial SC 07/14/24 15:44 5,000 unit Q12H KRISTAN Administration Magnesium Hydroxide 30 ml 06/28/24 01:49 Milk Of Magnesia Susp 30 Ml Udc PO 07/28/24 01:48 QDAY PRN CONSTIPATION Protocol Multivitamins 1 tab 07/01/24 14:30 Multivitamins Tablet PO 07/31/24 14:29 QDAY KRISTAN Ondansetron HCl 4 mg 06/28/24 01:49 Ondansetron Inj 2 Mg/Ml Inj 2 Ml IV 07/28/24 01:48 Q6H PRN NAUSEA OR VOMITING Protocol Pantoprazole Sodium 40 mg 06/28/24 09:00 07/01/24 08:32 Pantoprazole Inj 40 Mg Vial IVP 07/28/24 08:59 40 mg QDAY KRISTAN Administration Thiamine HCl 100 mg 06/30/24 18:45 07/01/24 09:42 Thiamine 100 Mg Tablet GT 07/07/24 18:44 100 mg QDAY KRISTAN Administration Plan A 78-year-old female with past medical history of dementia, hypertension, stage IV endometrial cancer S/P Hysterectomy and chemotherapy was brought in by ambulance to the hospital with complaints of altered mental status admitted for further management and work up of encephalopathy. # Acute encephalopathy - Stroke combined with aspiration pneumonia and dehydration # Acute infarcts right occipital lobe # Rule out cortical sinus venous thrombosis # Baseline dementia # Chronically neglected #Oropharyngeal dysphagia s/p PEG tube DDx: Dehydration versus sepsis versus oropharyngeal dysphagia leading to poor p.o. intake versus electrolyte disturbance hyponatremia -Patient was brought to the hospital with altered mental status after being found down. -CT head showed hypodensity in right parietal lobe, raising concern for infarct v. sinus venous thrombosis. -CT angio head and neck negative for vessel occlusion -Cervical spine CT showed no fractures -2.5 L NS IV fluids was given in the ED -ECHO shows normal,LV,RV function. Bubble study (-) -MRI shows with acute infarcts in the right occipital lobe, suspicious tiny infarct in the posterior left parietal lobe Plan -Goals of care discussion performed with patient's CODE STATUS changed to DNR and patient will be discharged tomorrow at SNF without hospice as per patient's wishes -PEG tube placed without complication started on tube feeds with water flushes -Atorvastatin 80 mg HS -Continuing aspirin 81 mg once daily with PEG tube -GI specialist recommended to use PEG tube for feedings -Head of bed elevation #Aspiration pneumonia #Sepsis(Leukocytosis, tachypnea, and tachycardia) #Congestion -Patient presented with fever and altered sensorium -CBC showed elevated WBC, 29.8. Lactate elvated at 3.8. -Chest x-ray showed patchy infiltrate in right lower base -Given leukocytosis, increased respirtaroy rate, and tachycardia patient meets SIRS Criteria of sepsis. Source of infection likely from aspiration pneumonia -Patient has failed bedside swallow at this time. She is having difficulty with clearing congestion. 06/29: No growth after 24 hours on both bottles, pending final cultures MRSA nares negative Plan -DC'd antibiotics and started Augmentin 875 twice daily to complete antibiotic course - Repeat blood cultures ordered 06/29-negative - Failed bedside swallow. Aspiration precautions. NPO. - Acetylcysteine - Chest Physiotherapy - Deep suction as needed #Hyperosmolar Hypernatremia?appears resolved Most recent labs showed increased sodium of 152. Will stop sodium chloride solution and start on hypotonic solution to lower sodium levels Free water deficit 1.3 L today Plan: -Continue water flushes via tube feedings #Dementia: Patient has history of dementia but unsure of her baseline at this time. Appears to have worsening in setting of acute stroke Plan: -Resume home meds prior PEG tube # Acute kidney injury, likely prerenal in the setting of dehydration- appears resolved Creatinine today normal Monitor a.m. labs # Dehydration # Chronically neglected # Malnutrition # PEG tube placement due to oropharyngeal dysphagia likely due to underlying stroke Per he states that she has difficulty with oral at baseline, and he only feeds for about 400 ashley a day. Plan: -PEG tube placed today #Thyroid mass 15 mm right thyroid mass found on imaging TSH and free T4 normal PTH elevated - outpatient follow up. patient will need a detailed work up outpatient. #Troponinemia Initial Troponin in ED resulted 0.507 Repeat in AM downtrended to 0.414 EKG sinus tach Will continue to trend symptoms # History of endometrial cancer s/p bilateral salpingo oophorectomy and hysterectomy and chemotherapy -Patient was diagnosed in 2016 with endometrial cancer due to postmenopausal bleeding -Received treatment in cancer center with chemo -Notes by Dr. Watkins oncologist on 02/2024 - PET/CT scan done on 03/03/2024 showed enlarging intra-abdominal lymph nodes as documented above. Her CA125 has increased to 87 on 02/04/2024. She was not able to get bevacizumab on a regular basis. Her last bevacizumab was given on 11/17/2023. CA125 has increased to 87.0. The patient is clinically doing very well. She is currently on bevacizumab. Tolerating it very well. Progressed on pembrolizumab. Lenvatinib discontinued on 02/12/2022. Patient progressed on topotecan. 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 CA 125 is elevated at 60.0 Plan: - Patient is advised to follow up with Dr. Watkins outpatient #Hypertension - Restarting home atenolol 25mg Qday Health maintenance Diet: PEG tube with tube feedings GI prophylaxis: Protonix 40 mg IV Daily DVT prophylaxis: Subcutaneous Heparin Injection CODE STATUS: DNR/DNI Disposition: Patient is admitted for further workup and management of encephalopathy. Patient will discharge tomorrow to SNF. PEG tube has been placed. Patient be discharged without hospice. Goals of care discussion performed today. CODE STATUS changed to DNR and POLST form signed. -- Patient seen and discussed with attending physician, Dr. Gisselle Carpio MD, PGY 2 Attending Provider Attestation/Addendum I have discussed and was present for the essential components of the history, physical examination, diagnosis, and treatment plan with the resident. I agree with the patient's care as documented by the resident and amended herein by me. Aleksey Pitts, DO. Although this document has been carefully reviewed, there may still be some phonetic and other typographical errors. These errors are purely grammatical due to imperfections in the software program and should not be construed in any way to compromise the substance of the patient's medical care during this visit.
--- NOTE | 2024-07-01 15:07 | PD.RESEVENT ---
Documentation for date of: 07/01/24 Event Note Event Note: Goals of Care: Patients was contacted and called for goals of care discussion. Attending Physician informed the patients that patient is not doing well and stroke affected her mentation, ability to swallow and she is on high risk of aspiration due to effects of stroke on her vocal cords and laryngeal muscles. Patient's reported that he is more open to send the patient to SNF and does not want to proceed with hospice for now due to insurance coverage/financial reasons. Patient's was explained that patient is currently on antibiotic therapy for aspiration pneumonia and will only get aspirin to prevent further stroke. Patient will be continued as CODE STATUS DNR and POLST form was signed in in the presence of social service agency director. However patient will be discharged likely tomorrow to SNF without hospice. foster care social worker was updated regarding the plan. Patient was seen and discussed with attending physician, Dr. Gisselle Carpio MD, PGY 2
[2024-07-01] MEDS: MULTIVITAMINS TABLET 1 TAB PO (17:41)
--- NOTE | 2024-07-01 19:05 | ESPR_ITS ---
Documentation for date of: 07/01/24 Subjective Subjective Interval history: No drainage at the PEG site Abdomen is soft nontender active bowel sounds Exam Vital Signs Temp Pulse Resp BP Pulse Ox O2 Del Method O2 Flow Rate 97.3 F 94 16 142/75 H 96 Oxy Mask 1 07/01/24 16:00 07/01/24 16:00 07/01/24 16:00 07/01/24 16:00 07/01/24 16:00 07/01/24 16:00 07/01/24 16:00 Routine Respiratory Exam Comments: Scattered rhonchi Routine Abdominal Exam Comments: Soft nontender Objective Labs 07/01/24 04:22 07/01/24 04:22 Labs: Laboratory Results - last 24 hr 06/30/24 07/01/24 21:35 04:22 WBC 14.9 H RBC 4.27 Hgb 12.8 Hct 37.1 MCV 87 MCH 30.0 MCHC 34.5 RDW Std Deviation 48.1 H Plt Count 139 L Neut % (Auto) 72 Lymph % (Auto) 11 [place] % (Auto) 11 Eos % (Auto) 4 Baso % (Auto) 0 Neut # (Auto) 10.7 H Lymph # (Auto) 1.7 [place] # (Auto) 1.6 H Eos # (Auto) 0.6 H Baso # (Auto) 0.0 Immature Gran # (Auto) 0.24 H Absolute Nucleated RBC 0.00 Immature Gran % 2 H Nucleated RBC % 0 Sodium 140 Potassium 4.0 Chloride 110 H Carbon Dioxide 20.9 Anion Gap 9 BUN 15 Creatinine 0.7 Estim Creat Clear Calc 63.1 eGFR > 60 BUN/Creatinine Ratio 21 H Glucose 111 H Calculated Osmolality 281 Calcium 8.7 Corrected Calcium 9.7 Phosphorus 2.2 L Magnesium 1.8 Total Bilirubin 0.5 AST 22 ALT 18 Alkaline Phosphatase 66 Total Protein 5.1 L Albumin 2.7 L Globulin 2.4 Albumin/Globulin Ratio 1.1 L Vancomycin Trough 13.0 H Impressions Impression: # Failure to thrive # PEG placement for enteral hyperalimentation Continue enteral hyperalimentation Assessment & Plan A&P Narrative # dysphagia in a patient with dementia and recent CVA involving right occipital lobe infarct and a posterior left parietal lobe infarct Plan Fiberoptic esophagogastroduodenoscopy with possible esophageal dilatation possible percutaneous endoscopic gastrostomy tube placement under intravenous moderate sedation scheduled for tomorrow N.p.o. midnight tonight Other medical problems include # Recent CVA involving right occipital lobe and left parietal lobe # Dementia Thank you very much for the opportunity to participate in the care of this patient Time Spent With Patient Time: Total time spent is greater than 50% in coordination of care (as documented) at patient's floor/unit and/or counseling patient:
[2024-07-01] MEDS: ATORVASTATIN CALCIUM 20 MG TABLET 80 MG PO (20:28)
[2024-07-01] MEDS: AMOXICILLIN/POT CLAV 875 TABLET 1 TAB PO (20:29)
--- NOTE | 2024-07-01 23:38 | PD.NEUROPROG ---
Documentation for date of: 07/01/24 Subjective Subjective Interval history: Ms. Diez is a 78-year-old female with baseline dementia, hypertension, stage IV endometrial cancer S/P Hysterectomy and chemotherapy, Shingles was brought in by ambulance to the hospital with complaints of altered mental status. Noted history of recurrent hospitalizations recent one was in 11/2023 Patient was in telemetry today. Continues to be confused, disoriented, trying to get out of bed, needing restraints. Got the PEG tube placed last night. Exam - Neurology Vital Signs Temp Pulse Resp BP Pulse Ox O2 Del Method O2 Flow Rate 97.8 F 97 22 H 137/76 H 92 L Oxy Mask 1 07/01/24 20:00 07/01/24 20:00 07/01/24 20:00 07/01/24 20:00 07/01/24 20:00 07/01/24 20:00 07/01/24 20:00 Narrative Exam GENERAL APPEARANCE: Well hydrated, well-nourished in no acute distress. HEENT: Normocephalic, atraumatic, extraocular movements intact. Pupils: Equal reacting to light NECK: Supple, no JVD or bruits. CARDIOVASULAR: Heart: S1, S2 heard, regular without S3-S4 or murmur no rubs or gallops. LUNGS/CHEST: Clear to auscultation bilaterally. No rails, rhonchi, or wheezing. Normal inspection. ABDOMEN: Soft, nontender, with normal bowel sounds. No pulsatile masses. No rebound, rigidity, or guarding. Normal inspection and palpation. EXTREMITIES: Normal inspection and palpation. No edema, clubbing or cyanosis. SKIN: Warm and dry without rashes. Normal inspection. MUSCULOSKELETAL: No cervical, thoracic, lumbar or midline bony tenderness. Normal inspection. NEURO: Alert, awake, oriented to person but not to time and place, hard to understand her speech most of the time. Able to move both upper and lower extremities purposefully. Rest of the exam: Limited. PSYCHIATRIC: Limited. Objective Labs 07/01/24 04:22 07/01/24 04:22 Labs: Laboratory Results - last 24 hr 07/01/24 04:22 WBC 14.9 H RBC 4.27 Hgb 12.8 Hct 37.1 MCV 87 MCH 30.0 MCHC 34.5 RDW Std Deviation 48.1 H Plt Count 139 L Neut % (Auto) 72 Lymph % (Auto) 11 [place] % (Auto) 11 Eos % (Auto) 4 Baso % (Auto) 0 Neut # (Auto) 10.7 H Lymph # (Auto) 1.7 [place] # (Auto) 1.6 H Eos # (Auto) 0.6 H Baso # (Auto) 0.0 Immature Gran # (Auto) 0.24 H Absolute Nucleated RBC 0.00 Immature Gran % 2 H Nucleated RBC % 0 Sodium 140 Potassium 4.0 Chloride 110 H Carbon Dioxide 20.9 Anion Gap 9 BUN 15 Creatinine 0.7 Estim Creat Clear Calc 63.1 eGFR > 60 BUN/Creatinine Ratio 21 H Glucose 111 H Calculated Osmolality 281 Calcium 8.7 Corrected Calcium 9.7 Phosphorus 2.2 L Magnesium 1.8 Total Bilirubin 0.5 AST 22 ALT 18 Alkaline Phosphatase 66 Total Protein 5.1 L Albumin 2.7 L Globulin 2.4 Albumin/Globulin Ratio 1.1 L Assessment & Plan Assessment and plan (1) Acute CVA (cerebrovascular accident): Status: Acute Assessment and plan: With altered mental status: Ischemic encephalopathy and functional dysphagia Noted Dr. Ivan did PEG tube placement this gui. Continue with aspirin and statin (2) Pneumonia: Status: Acute Assessment and plan: Continue with IV antibiotics (3) Sepsis: Status: Acute Assessment and plan: Continue with IV antibiotics follow-up with blood culture and sensitivity (4) Dementia: Status: Chronic Assessment and plan: At baseline, not sure about the rehab potential
[2024-07-02] VITALS (11 sets, daily range): BP systolic 125–165; BP diastolic 68–102; PULSE 80–107; RESP 18–25; TEMP 36.1–36.8; O2SAT 94–99; BMI 19.6
[2024-07-02] MEDS: HEPARIN SOD INJ 5000 UNIT/ML VIAL SC ×2 (03:51→16:12)
[2024-07-02] MEDS: SCOPOLAMINE 1 MG TDSY TOP (04:34)
[2024-07-02 05:49] LABS: Basophils % (Auto) 0 % (0-2.5); Eosinophils # (Auto) 0.3 Thou/mm3 (0.0-0.5); Eosinophils % (Auto) 2 % (0-10); Hematocrit 35.9 % (36.0-46.0); Immature Granulocytes % (Auto) 1 % (0-0); Immature Granulocytes Auto 0.19 Thou/mm3 (0.00-0.00); Lymphocytes # (Auto) 1.5 Thou/mm3 (1.0-4.8); Lymphocytes % (Auto) 11 % (10-50); Mean Corpuscular HGB Conc 33.4 g/dl (31.0-37.0); Mean Corpuscular Hemoglobin 29.8 pg (25.0-35.0); Mean Corpuscular Volume 89 fL (80-100); Monocytes # (Auto) 1.9 Thou/mm3 (0.0-0.8); Monocytes % (Auto) 14 % (0-12); Neutrophils # (Auto) 9.6 Thou/mm3 (1.8-7.7); Neutrophils % (Auto) 71 % (37-80); Nucleated Red Blood Cell % 0 /100 WBC (0); Platelet Count 84 Thou/mm3 (140-440); RDW Standard Deviation 49.7 fL (36.4-46.3); Red Blood Count 4.03 Miln/mm3 (4.00-5.20); White Blood Count 13.5 Thou/mm3 (3.6-11.0)
[2024-07-02 06:17] LABS: Alanine Aminotransferase 21 U/L (10-49); Albumin, Serum 2.9 gm/dL (3.4-4.8); Albumin/Globulin Ratio 1.3 (1.2-2.2); Alkaline Phosphatase 73 U/L (46-116); Anion Gap 9 (7-16); Aspartate Amino Transferase 29 U/L (0-34); BUN/Creatinine Ratio 18 Ratio (12-20); Bilirubin,Total 0.5 mg/dL (0.3-1.2); Blood Urea Nitrogen 14 mg/dL (9-23); Calcium 8.6 mg/dL (8.3-10.6); Calcium (Corrected) 9.5 mg/dL (8.5-10.1); Carbon Dioxide 21.8 mMol/L (20.0-31.0); Chloride 110 mMol/L (98-107); Creatinine (Component) 0.8 mg/dL (0.6-1.3); Estimated Creatinine Clearance 55.2 mL/min (>60); Globulin 2.3 gm/dL (2.3-3.5); Glucose 121 mg/dL (74-106); Magnesium 2.1 mg/dL (1.6-2.6); Osmolality,Calculated 282 (275-295); Phosphorous 2.7 mg/dL (2.4-5.1); Sodium 141 mMol/L (136-145); Total Protein 5.2 gm/dL (5.7-8.2); eGFR > 60 See Note
[2024-07-02] MEDS: AMOXICILLIN/POT CLAV 875 TABLET 1 TAB PO ×2 (08:46→21:48)
[2024-07-02] MEDS: PANTOPRAZOLE INJ 40 MG VIAL IVP (08:46)
[2024-07-02] MEDS: ASPIRIN EC 81 MG TABEC PO (08:47)
[2024-07-02] MEDS: MULTIVITAMINS TABLET 1 TAB PO (08:47)
[2024-07-02] MEDS: THIAMINE 100 MG TABLET GT (08:48)
[2024-07-02] MEDS: atenoloL 25 MG TABLET PO (08:52)
--- NOTE | 2024-07-02 09:31 | PD.RESDS ---
Planned Discharge Date 07/02/24 DS: Providers Provider Date of admission: 06/28/24 01:46 Primary care physician: Physician No Primary/Family Admitting Provider: Herman Cortez MD Attending Provider on Admission: Joaquin Pitts DO Consults: 06/28/24 05:05 Consult to Neurology / Tele-Neurology Stat Comment: stroke Consulting Provider: Germain Rangel 06/28/24 05:16 Referral Speech Therapy Routine Comment: 06/28/24 09:49 Referral Speech Therapy Stat Comment: 06/28/24 10:05 Referral Registered Dietitian Stat Comment: 06/29/24 07:58 Referral Physical Therapy Urgent Comment: Physician Instructions: 06/29/24 13:24 Consult to Gastroenterology Stat Comment: Consulting Provider: Daniella Ivan 06/30/24 12:00 Consult to Infectious Diseases Routine Comment: Consulting Provider: Tesfaye Bueno 06/30/24 17:54 Referral Registered Dietitian Urgent Comment: Instructions: new peg tube insertion Attending Provider on DC: Joaquin Pitts DO Discharging Provider: Joaquin Pitts DO DS: Diagnosis Problem List Completed Was Problem List Reviewed/Reconciled?: Yes Hospital Course Hospital Course Hospital course: Christin Diez is an 78 year old woman with past medical history of dementia, hypertension, stage IV endometrial cancer S/P Hysterectomy and chemotherapy and shingles who was brought in by ambulance after being found down with altered mental status and admitted for further workup. She was found to have acute stroke with aspiration pneumonia. She presented with tachycardia, fever and tachypnea. Labs were significant for leukocytosis, thrombocytosis, hyponatremia, lactic acidosis, troponin elevation. Chest x-ray was significant for patchy infiltrates suggestive of pneumonia and cultures revealed gram-negative rods 1/2 and GPC in other bottle however repeat blood cultures were negative. Therefore we did not plan to remove the port a cath. We managed the patient with IV ceftriaxone and vancomycin was discontinued. Head CT and MRI suggestive of acute infarct in right occipital lobe. Patient underwent echocardiogram as part of stroke work up which showed normal LV, RV function and EF of 55-60% and no evidence of thrombus. Neurology recommended to continue with aspirin 81 mg once daily only. We perform frequent nasopharyngeal suctioning due to excessive secretions and dysphagia. Patient failed swallow screen and NG tube placement therefore PEG tube was placed by GI specialist. Goals of care discussion was performed today with patient's regarding CODE STATUS and patient was changed to DNR and POLST form was signed in the presence of attending and RN with social media executive. Patient's wanted to send the patient to facility and did not wanted to proceed with hospice for now. Patient is medically stable to be discharged today to intermediate facility. Patient is accepted under [facility]. Discharge plan: Take all medications as prescribed Take Augmentin 875 mg 1 tablet twice daily for 7 days to complete antibiotic course Take aspirin 81 mg for stroke prevention Take amlodipine 5 Continue tube feedings and medications via PEG tube Continue frequent suctioning at [facility] Follow-up with PCP as outpatient within 2 weeks Patient is getting discharged to intermediate facility at [facility] In case of emergency, call 911 or come back to the ED Discharge Diagnosis: #Acute encephalopathy - Stroke combined with aspiration pneumonia and dehydration #Acute infarcts right occipital lobe #Baseline dementia #Aspiration pneumonia - on antibiotics #Sepsis(Leukocytosis, tachypnea, and tachycardia), resolved #Congestion #Hyperosmolar Hypernatremia? resolved #Thyroid Mass #Tropinemia, downtrending #Hypokalemia, resolved #History of endometrial cancer s/p bilateral salpingo oophorectomy and hysterectomy and chemotherapy Patient was seen and discussed with attending physician, Dr. Gisselle Carpio MD, PGY 2 Time Spent with Patient Time attestation: Total time spent providing and/or coordinating discharge services: Exam Vital Signs Temp Pulse Resp BP Pulse Ox O2 Del Method O2 Flow Rate 97.4 F 91 20 128/102 H 94 L Nasal Cannula 4 07/02/24 04:00 07/02/24 08:52 07/02/24 05:06 07/02/24 08:52 07/02/24 05:06 07/02/24 04:30 07/02/24 05:06 Narrative Exam Exam limited given altered mental status HEENT: PERRLA. poor dentition. CHEST: Symmetrical, atraumatic, and with equal expansion , Nontender on palpation no deformity and no crepitus. CARDIOVASCULAR: Heart regular rhythm no murmur or gallop rub or extra beats. LUNGS: Clear to auscultation bilaterally with symmetrical chest rise.? No laboring tachypnea or wheezing.? No intercostal subcostal retraction.? No rales and no rhonchi. ABDOMEN: Soft, flat, nontender to palpation, no guarding or rebound tenderness.? There are no abnormal masses palpated.? Active and normal bowel sounds. EXTREMITIES: Nontender.? No edema.? No cyanosis.? Patient able to lift all limbs against gravity. Can wiggle toes. She reports sensation to light touch intact to upper and lower extremities. NEURO: Oriented to person place and time.Patient appears to be mentating normally. Eyes track around the room. 1+ Patella reflexes bilaterally. 1+ Brachioradialis and biceps reflex. Babinski reflex down going. Discharge Plan Plan Patient Disposition: Xfer Skilled Nsg Fac (SNF) Patient condition on transfer: Stable Care Plan Goals: Take all medications as prescribed Take Augmentin 875 mg 1 tablet twice daily for 7 days to complete antibiotic course Take aspirin 81 mg for stroke prevention Take amlodipine 5 Continue tube feedings and medications via PEG tube Continue frequent suctioning at SNF Follow-up with PCP as outpatient within 2 weeks Patient is getting discharged to intermediate facility at [facility] In case of emergency, call 911 or come back to the ED Prescriptions/Referrals Prescriptions/Med Rec: New thiamine mononitrate (vit B1) 100 mg tablet 100 mg feeding tube QDAY 30 Days Qty: 30 0RF magnesium hydroxide [Milk of Magnesia] 400 mg/5 mL Suspension 30 ml feeding tube QDAY PRN (Reason: Constipation) Qty: 3780 0RF aspirin 81 mg capsule 81 mg feeding tube QDAY Qty: 30 0RF ipratropium-albuterol 0.5 mg-3 mg(2.5 mg base)/3 mL Solution For Nebulization 3 ml INH Q4HR PRN (Reason: Shortness Of Breath Or Wheeze) 30 Days Qty: 30 0RF acetylcysteine 100 mg/mL (10 %) Solution 3 ml INH Q4HR PRN (Reason: Shortness Of Breath Or Wheeze) Qty: 30 0RF atorvastatin 80 mg tablet 80 mg feeding tube HS 30 Days Qty: 30 0RF pantoprazole [Protonix] [address] for susp in packet 40 mg feeding tube QDAY 14 Days Qty: 30 0RF multivitamin [Daily Multi-Vitamin] Tablet 1 tab feeding tube QDAY Qty: 30 0RF glycopyrrolate 1.7 mg tablet,disintegrating 1.7 mg PO QDAY PRN (Reason: secretions) Qty: 30 0RF Rx Instructions: administer on an empty stomach, at least 1 hour before or 2 hours after food/meal(s) Changed loratadine 10 mg tablet 10 mg feeding tube DAILY PRN (Reason: Allergy Symptoms) Qty: 30 0RF Patient Comments: take 1 tablet by mouth once daily if needed for allergies atenolol 25 MG tablet 25 mg feeding tube HS Qty: 90 0RF benztropine 2 mg tablet 2 mg feeding tube BID 30 Days Qty: 60 0RF Patient Comments: take 1 tablet by mouth twice a day Discontinued gabapentin 100 mg Tablet 100 mg PO HS Referrals: No Primary/Family,Physician [Primary Care Provider] - Patient/Caregiver Discharge Instructions Education Materials: Stroke: Resources and Support, Stroke: Tips for Swallowing Print Language: Venezuelan Stand Alone Forms: Ani Award Info., Patient Portal Info Letter Discharge Order Discharge Orders: Discharge (Routine); Ordered 07/02/24 Ordered By: Tim Carpio Quality Discharge Quality Measures VTE prophylaxis MD Attestestation MD Attestation I have discussed and was present for the essential components of the discharge history, physical examination, diagnosis, and discharge treatment plan with the resident. I agree with the patient's discharge care as documented by the resident and amended herein by me. Aleksey Pitts DO. The patient understood all discharge instructions, all questions were answered satisfactorily. The patient was instructed to return to the Emergency Department is symptoms worsened or persisted. Patient was stable, afebrile and tolerating tube feeds at time of discharge to SNF. Although this document has been carefully reviewed, there may still be some phonetic and other typographical errors. These errors are purely grammatical due to imperfections in the software program and should not be construed in any way to compromise the substance of the patient's medical care during this visit.
--- NOTE | 2024-07-02 10:24 | PC.SS ---
PRICING COORDINATOR followed up with pt regarding questions that Meenu from SNF had about pt being at another SNF within the last 60 days, pt stated she was not sure. PRICING COORDINATOR followed up with Merritt Diez and he stated that he believes she was at one in the Oct but does not remember.
--- NOTE | 2024-07-02 10:39 | PC.SS ---
CRANE FOLLOWER spoke to Meenu from [place] who stated that pt needed to be off restraints for at least 24 hours, CRANE FOLLOWER spoke to MAY Robison and she understood, CRANE FOLLOWER will follow up with Meenu lynne.
--- NOTE | 2024-07-02 12:08 | ESPR_ITS ---
Documentation for date of: 07/02/24 Subjective Subjective Interval history: Patient was seen and examined at the bedside this morning. No acute overnight events were reported. Patient is currently looking similar as of yesterday. Nurse reported that they are continuing the tube feedings and she is tolerating them well. Vitals showed blood pressure stable. She was saturating well on 2 L NC. White count improved. Hemoglobin stable. Platelet counts downtrending. CHEM panel was unremarkable. Blood glucose normal we are currently on SNF authorization. Patient is stable to be discharged today. Exam Vital Signs Temp Pulse Resp BP Pulse Ox O2 Del Method O2 Flow Rate 96.9 F 91 19 128/102 H 95 Nasal Cannula 2 07/02/24 08:00 07/02/24 08:52 07/02/24 08:00 07/02/24 08:52 07/02/24 08:00 07/02/24 08:00 07/02/24 08:00 Narrative Exam Exam limited given altered mental status HEENT: PERRLA. poor dentition. CHEST: Symmetrical, atraumatic, and with equal expansion , Nontender on palpation no deformity and no crepitus. CARDIOVASCULAR: Heart regular rhythm no murmur or gallop rub or extra beats. LUNGS: Clear to auscultation bilaterally with symmetrical chest rise.? No laboring tachypnea or wheezing.? No intercostal subcostal retraction.? No rales and no rhonchi. ABDOMEN: Soft, flat, nontender to palpation, no guarding or rebound tenderness.? There are no abnormal masses palpated.? Active and normal bowel sounds. EXTREMITIES: Nontender.? No edema.? No cyanosis.? Patient able to lift all limbs against gravity. Can wiggle toes. She reports sensation to light touch intact to upper and lower extremities. NEURO: Oriented to person place and time.Patient appears to be mentating normally. Eyes track around the room. 1+ Patella reflexes bilaterally. 1+ Brachioradialis and biceps reflex. Babinski reflex down going. Objective Labs 07/02/24 05:14 07/02/24 05:14 Labs: Laboratory Results - last 24 hr 07/02/24 05:14 WBC 13.5 H RBC 4.03 Hgb 12.0 Hct 35.9 L MCV 89 MCH 29.8 MCHC 33.4 RDW Std Deviation 49.7 H Plt Count 84 L D Neut % (Auto) 71 Lymph % (Auto) 11 [place] % (Auto) 14 H Eos % (Auto) 2 Baso % (Auto) 0 Neut # (Auto) 9.6 H Lymph # (Auto) 1.5 [place] # (Auto) 1.9 H Eos # (Auto) 0.3 Baso # (Auto) 0.0 Immature Gran # (Auto) 0.19 H Absolute Nucleated RBC 0.00 Immature Gran % 1 H Nucleated RBC % 0 Sodium 141 Potassium 4.0 Chloride 110 H Carbon Dioxide 21.8 Anion Gap 9 BUN 14 Creatinine 0.8 Estim Creat Clear Calc 55.2 L eGFR > 60 BUN/Creatinine Ratio 18 Glucose 121 H Calculated Osmolality 282 Calcium 8.6 Corrected Calcium 9.5 Phosphorus 2.7 Magnesium 2.1 Total Bilirubin 0.5 AST 29 ALT 21 Alkaline Phosphatase 73 Total Protein 5.2 L Albumin 2.9 L Globulin 2.3 Albumin/Globulin Ratio 1.3 Quality Measures Quality Measures VTE prophylaxis Advance care planning discussed with:: spouse Assessment & Plan Assessment Current Active Medications: Generic Name Dose Route Start Last Admin Trade Name Freq PRN Reason Stop Dose Admin Acetaminophen 650 mg 06/28/24 05:22 Acetaminophen Supp [address] 07/28/24 05:21 Q6HR PRN PAIN OR FEVER > 101 Acetylcysteine 3 ml 06/30/24 09:24 Acetylcysteine Rt Marian 10% 4 Ml Nebu INH 07/30/24 09:23 Q4HR PRN SHORTNESS OF BREATH OR WHEEZE Protocol Albuterol/Ipratropium 3 ml 06/28/24 12:54 Albuterol/Ipratropium (Duoneb) Rt Marian 3 Ml Nebu INH 07/28/24 13:59 Q4HR PRN SHORTNESS OF BREATH OR WHEEZE Protocol Amoxicillin/Clavulanate Potassium 1 tab 07/01/24 21:00 07/02/24 08:46 Amoxicillin/Pot Clav 875 Tablet PO 07/08/24 20:59 1 tab BID KRISTAN Administration Aspirin 81 mg 07/02/24 09:00 07/02/24 08:47 Aspirin Ec 81 Mg Tabec PO 08/01/24 08:59 81 mg QDAY KRISTAN Administration Atenolol 25 mg 06/29/24 10:15 07/02/24 08:52 Atenolol 25 Mg Tablet PO 07/29/24 10:14 25 mg QDAY KRISTAN Administration Atorvastatin Calcium 80 mg 06/28/24 21:00 07/01/24 20:28 Atorvastatin Calcium 20 Mg Tablet PO 07/28/24 20:59 80 mg HS KRISTAN Administration Dextrose 25 ml 06/28/24 09:50 06/30/24 20:04 Dextrose 50%-Water Inj 50 Ml Syringe IV 07/28/24 09:49 25 ml Q15MIN PRN Administration BG 50-70 responsive npo pt Dextrose 50 ml 06/28/24 09:50 Dextrose 50%-Water Inj 50 Ml Syringe IV 07/28/24 09:49 Q15MIN PRN BG <50 OR BG <70 & pt unresponsive Glucagon 1 mg 06/28/24 09:50 Glucagon Inj 1 Mg Vial IM Q15MIN PRN BG <70, and no IV access Heparin Sodium (Porcine) 5,000 unit 06/30/24 15:45 07/02/24 03:51 Heparin Sod Inj 5000 Unit/Ml Vial SC 07/14/24 15:44 5,000 unit Q12H KRISTAN Administration Magnesium Hydroxide 30 ml 06/28/24 01:49 Milk Of Magnesia Susp 30 Ml Udc PO 07/28/24 01:48 QDAY PRN CONSTIPATION Protocol Multivitamins 1 tab 07/01/24 14:30 07/02/24 08:47 Multivitamins Tablet PO 07/31/24 14:29 1 tab QDAY KRISTAN Administration Ondansetron HCl 4 mg 06/28/24 01:49 Ondansetron Inj 2 Mg/Ml Inj 2 Ml IV 07/28/24 01:48 Q6H PRN NAUSEA OR VOMITING Protocol Pantoprazole Sodium 40 mg 06/28/24 09:00 07/02/24 08:46 Pantoprazole Inj 40 Mg Vial IVP 07/28/24 08:59 40 mg QDAY KRISTAN Administration Thiamine HCl 100 mg 06/30/24 18:45 07/02/24 08:48 Thiamine 100 Mg Tablet GT 07/07/24 18:44 100 mg QDAY KRISTAN Administration Plan A 78-year-old female with past medical history of dementia, hypertension, stage IV endometrial cancer S/P Hysterectomy and chemotherapy was brought in by ambulance to the hospital with complaints of altered mental status admitted for further management and work up of encephalopathy. # Acute encephalopathy - Stroke combined with aspiration pneumonia and dehydration # Acute infarcts right occipital lobe # Rule out cortical sinus venous thrombosis # Baseline dementia # Chronically neglected #Oropharyngeal dysphagia s/p PEG tube DDx: Dehydration versus sepsis versus oropharyngeal dysphagia leading to poor p.o. intake versus electrolyte disturbance hyponatremia -Patient was brought to the hospital with altered mental status after being found down. -CT head showed hypodensity in right parietal lobe, raising concern for infarct v. sinus venous thrombosis. -CT angio head and neck negative for vessel occlusion -Cervical spine CT showed no fractures -2.5 L NS IV fluids was given in the ED -ECHO shows normal,LV,RV function. Bubble study (-) -MRI shows with acute infarcts in the right occipital lobe, suspicious tiny infarct in the posterior left parietal lobe Plan -Currently awaiting SNF placement -Goals of care discussion performed with patient's CODE STATUS changed to DNR and patient will be discharged tomorrow at SNF without hospice as per patient's wishes -PEG tube placed without complication started on tube feeds with water flushes -Atorvastatin 80 mg HS -Continuing aspirin 81 mg once daily with PEG tube -GI specialist recommended to use PEG tube for feedings -Head of bed elevation #Aspiration pneumonia #Sepsis(Leukocytosis, tachypnea, and tachycardia) #Congestion -Patient presented with fever and altered sensorium -CBC showed elevated WBC, 29.8. Lactate elvated at 3.8. -Chest x-ray showed patchy infiltrate in right lower base -Given leukocytosis, increased respirtaroy rate, and tachycardia patient meets SIRS Criteria of sepsis. Source of infection likely from aspiration pneumonia -Patient has failed bedside swallow at this time. She is having difficulty with clearing congestion. 06/29: No growth after 24 hours on both bottles, pending final cultures MRSA nares negative Plan -DC'd antibiotics and started Augmentin 875 twice daily to complete antibiotic course - Repeat blood cultures ordered 06/29-negative - Failed bedside swallow. Aspiration precautions. NPO. - Acetylcysteine - Chest Physiotherapy - Deep suction as needed #Hyperosmolar Hypernatremia?appears resolved Most recent labs showed increased sodium of 152. Will stop sodium chloride solution and start on hypotonic solution to lower sodium levels Free water deficit 1.3 L today Plan: -Continue water flushes via tube feedings #Dementia: Patient has history of dementia but unsure of her baseline at this time. Appears to have worsening in setting of acute stroke Plan: -Resume home meds prior PEG tube # Acute kidney injury, likely prerenal in the setting of dehydration- appears resolved Creatinine today normal Monitor a.m. labs # Dehydration # Chronically neglected # Malnutrition # PEG tube placement due to oropharyngeal dysphagia likely due to underlying stroke Per he states that she has difficulty with oral at baseline, and he only feeds for about 400 ashley a day. Plan: -PEG tube placed today #Thyroid mass 15 mm right thyroid mass found on imaging TSH and free T4 normal PTH elevated - outpatient follow up. patient will need a detailed work up outpatient. #Troponinemia Initial Troponin in ED resulted 0.507 Repeat in AM downtrended to 0.414 EKG sinus tach Will continue to trend symptoms # History of endometrial cancer s/p bilateral salpingo oophorectomy and hysterectomy and chemotherapy -Patient was diagnosed in 2017 with endometrial cancer due to postmenopausal bleeding -Received treatment in cancer center with chemo -Notes by Dr. Watkins oncologist on 02/2024 - PET/CT scan done on 03/03/2024 showed enlarging intra-abdominal lymph nodes as documented above. Her CA125 has increased to 87 on 02/04/2024. She was not able to get bevacizumab on a regular basis. Her last bevacizumab was given on 11/17/2023. CA125 has increased to 87.0. The patient is clinically doing very well. She is currently on bevacizumab. Tolerating it very well. Progressed on pembrolizumab. Lenvatinib discontinued on 02/12/2022. Patient progressed on topotecan. 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 CA 125 is elevated at 60.0 Plan: - Patient is advised to follow up with Dr. Watkins outpatient #Hypertension - Restarting home atenolol 25mg Qday Health maintenance Diet: PEG tube with tube feedings GI prophylaxis: Protonix 40 mg IV Daily DVT prophylaxis: Subcutaneous Heparin Injection CODE STATUS: DNR/DNI Disposition: Patient is admitted for further workup and management of encephalopathy. Currently awaiting SNF placement. -- Patient seen and discussed with attending physician, Dr. Gisselle Carpio MD, PGY 2 Attending Provider Attestation/Addendum I have discussed and was present for the essential components of the history, physical examination, diagnosis, and treatment plan with the resident. I agree with the patient's care as documented by the resident and amended herein by me. Aleksey Pitts DO. Patient seen and evaluated in the a.m., was inclined to discharge to SNF today however patient needs to be off restraints for 24 hours before facility can take. Likely DC on 07/03 Although this document has been carefully reviewed, there may still be some phonetic and other typographical errors. These errors are purely grammatical due to imperfections in the software program and should not be construed in any way to compromise the substance of the patient's medical care during this visit.
--- NOTE | 2024-07-02 13:56 | PD.IMPROG ---
Documentation for date of: 07/02/24 Subjective Subjective Interval history: 78 years old female evaluated PEG site looks good Tolerating enteral feeding Exam Vital Signs Temp Pulse Resp BP Pulse Ox O2 Del Method O2 Flow Rate 96.9 F 91 19 128/102 H 95 Nasal Cannula 2 07/02/24 08:00 07/02/24 08:52 07/02/24 08:00 07/02/24 08:52 07/02/24 08:00 07/02/24 08:00 07/02/24 08:00 Routine Respiratory Exam Comments: Normal to auscultation Routine Abdominal Exam Comments: Soft nontender positive bowel sound PEG tube in place Objective Labs 07/02/24 05:14 07/02/24 05:14 Labs: Laboratory Results - last 24 hr 07/02/24 05:14 WBC 13.5 H RBC 4.03 Hgb 12.0 Hct 35.9 L MCV 89 MCH 29.8 MCHC 33.4 RDW Std Deviation 49.7 H Plt Count 84 L D Neut % (Auto) 71 Lymph % (Auto) 11 [place] % (Auto) 14 H Eos % (Auto) 2 Baso % (Auto) 0 Neut # (Auto) 9.6 H Lymph # (Auto) 1.5 [place] # (Auto) 1.9 H Eos # (Auto) 0.3 Baso # (Auto) 0.0 Immature Gran # (Auto) 0.19 H Absolute Nucleated RBC 0.00 Immature Gran % 1 H Nucleated RBC % 0 Sodium 141 Potassium 4.0 Chloride 110 H Carbon Dioxide 21.8 Anion Gap 9 BUN 14 Creatinine 0.8 Estim Creat Clear Calc 55.2 L eGFR > 60 BUN/Creatinine Ratio 18 Glucose 121 H Calculated Osmolality 282 Calcium 8.6 Corrected Calcium 9.5 Phosphorus 2.7 Magnesium 2.1 Total Bilirubin 0.5 AST 29 ALT 21 Alkaline Phosphatase 73 Total Protein 5.2 L Albumin 2.9 L Globulin 2.3 Albumin/Globulin Ratio 1.3 Impressions Impression: # Dysphagia # Failure to thrive # Status postplacement of a PEG tube for enteral hyperalimentation and she is tolerating it well Assessment & Plan A&P Narrative # dysphagia in a patient with dementia and recent CVA involving right occipital lobe infarct and a posterior left parietal lobe infarct Plan Fiberoptic esophagogastroduodenoscopy with possible esophageal dilatation possible percutaneous endoscopic gastrostomy tube placement under intravenous moderate sedation scheduled for tomorrow Monap.o. midnight tonight Other medical problems include # Recent CVA involving right occipital lobe and left parietal lobe # Dementia Thank you very much for the opportunity to participate in the care of this patient Time Spent With Patient Time: Total time spent is greater than 50% in coordination of care (as documented) at patient's floor/unit and/or counseling patient:
[2024-07-02] MEDS: GLYCOPYRROLATE 1 MG TABLET NG (18:26)
[2024-07-02] MEDS: ATORVASTATIN CALCIUM 20 MG TABLET 80 MG PO (21:48)
--- NOTE | 2024-07-02 23:59 | PD.VPROG1 ---
Telemedicine visit statement This visit was conducted with the use of virtual visit was obtained on 07/02/24 at 2359. Documentation for date of: 07/02/24 Subjective Subjective Interval history: Patient is in telemetry, Tolerating PEG tube feeding well, no significant residuals. Off of restraints. Virtual exam Vital Signs Temp Pulse Resp BP Pulse Ox O2 Del Method O2 Flow Rate 97.7 F 86 23 H 165/93 H 96 Nasal Cannula 2 07/02/24 20:00 07/02/24 20:00 07/02/24 20:00 07/02/24 20:00 07/02/24 20:00 07/02/24 20:00 07/02/24 20:00 Objective Labs 07/02/24 05:14 07/02/24 05:14 Labs: Laboratory Results - last 24 hr 07/02/24 05:14 WBC 13.5 H RBC 4.03 Hgb 12.0 Hct 35.9 L MCV 89 MCH 29.8 MCHC 33.4 RDW Std Deviation 49.7 H Plt Count 84 L D Neut % (Auto) 71 Lymph % (Auto) 11 [place] % (Auto) 14 H Eos % (Auto) 2 Baso % (Auto) 0 Neut # (Auto) 9.6 H Lymph # (Auto) 1.5 [place] # (Auto) 1.9 H Eos # (Auto) 0.3 Baso # (Auto) 0.0 Immature Gran # (Auto) 0.19 H Absolute Nucleated RBC 0.00 Immature Gran % 1 H Nucleated RBC % 0 Sodium 141 Potassium 4.0 Chloride 110 H Carbon Dioxide 21.8 Anion Gap 9 BUN 14 Creatinine 0.8 Estim Creat Clear Calc 55.2 L eGFR > 60 BUN/Creatinine Ratio 18 Glucose 121 H Calculated Osmolality 282 Calcium 8.6 Corrected Calcium 9.5 Phosphorus 2.7 Magnesium 2.1 Total Bilirubin 0.5 AST 29 ALT 21 Alkaline Phosphatase 73 Total Protein 5.2 L Albumin 2.9 L Globulin 2.3 Albumin/Globulin Ratio 1.3 Assessment & Plan Assessment (1) Acute CVA (cerebrovascular accident): With altered mental status: Ischemic encephalopathy and functional dysphagia Noted Dr. Ivan did PEG tube placement and is tolerating tube feeding well. Continue with aspirin and statin (2) Pneumonia: Continue with IV antibiotics (3) Sepsis: Continue with IV antibiotics (4) Dementia: At baseline, plan is to send her to SNF as she has been off of restraints more than 24 hours. CC:
[2024-07-03] VITALS (8 sets, daily range): BP systolic 127–153; BP diastolic 72–94; PULSE 70–100; RESP 16–21; TEMP 36.2–36.5; O2SAT 90–99; BMI 19.6
--- NOTE | 2024-07-03 03:52 | PC.NURSE ---
Per Jose Gibbs to hold Heparin SC due to plt count of 84
[2024-07-03 05:47] LABS: Basophils # (Auto) 0.1 Thou/mm3 (0.0-0.2); Basophils % (Auto) 0 % (0-2.5); Eosinophils # (Auto) 0.4 Thou/mm3 (0.0-0.5); Eosinophils % (Auto) 3 % (0-10); Hematocrit 36.8 % (36.0-46.0); Hemoglobin 12.4 g/dL (12.0-16.0); Immature Granulocytes % (Auto) 1 % (0-0); Immature Granulocytes Auto 0.21 Thou/mm3 (0.00-0.00); Lymphocytes % (Auto) 13 % (10-50); Mean Corpuscular HGB Conc 33.7 g/dl (31.0-37.0); Mean Corpuscular Hemoglobin 30.6 pg (25.0-35.0); Mean Corpuscular Volume 91 fL (80-100); Monocytes # (Auto) 2.4 Thou/mm3 (0.0-0.8); Monocytes % (Auto) 15 % (0-12); Neutrophils # (Auto) 10.7 Thou/mm3 (1.8-7.7); Neutrophils % (Auto) 68 % (37-80); Nucleated Red Blood Cell % 0 /100 WBC (0); Platelet Count 127 Thou/mm3 (140-440); RDW Standard Deviation 51.5 fL (36.4-46.3); Red Blood Count 4.05 Miln/mm3 (4.00-5.20); White Blood Count 15.7 Thou/mm3 (3.6-11.0)
[2024-07-03 06:16] LABS: Alanine Aminotransferase 20 U/L (10-49); Albumin/Globulin Ratio 1.3 (1.2-2.2); Alkaline Phosphatase 83 U/L (46-116); Anion Gap 9 (7-16); Aspartate Amino Transferase 26 U/L (0-34); BUN/Creatinine Ratio 18 Ratio (12-20); Bilirubin,Total 0.5 mg/dL (0.3-1.2); Blood Urea Nitrogen 16 mg/dL (9-23); Calcium 8.9 mg/dL (8.3-10.6); Calcium (Corrected) 9.7 mg/dL (8.5-10.1); Carbon Dioxide 25.6 mMol/L (20.0-31.0); Chloride 109 mMol/L (98-107); Creatinine (Component) 0.9 mg/dL (0.6-1.3); Estimated Creatinine Clearance 49.1 mL/min (>60); Globulin 2.3 gm/dL (2.3-3.5); Glucose 109 mg/dL (74-106); Osmolality,Calculated 289 (275-295); Phosphorous 2.1 mg/dL (2.4-5.1); Sodium 144 mMol/L (136-145); Total Protein 5.3 gm/dL (5.7-8.2); eGFR > 60 See Note
[2024-07-03] MEDS: THIAMINE 100 MG TABLET GT (09:06)
[2024-07-03] MEDS: MULTIVITAMINS TABLET 1 TAB PO (09:06)
[2024-07-03] MEDS: atenoloL 25 MG TABLET PO (09:06)
[2024-07-03] MEDS: ASPIRIN EC 81 MG TABEC PO (09:06)
[2024-07-03] MEDS: PANTOPRAZOLE INJ 40 MG VIAL IVP (09:06)
[2024-07-03] MEDS: AMOXICILLIN/POT CLAV 875 TABLET 1 TAB PO (09:06)
--- NOTE | 2024-07-03 10:10 | PC.SS ---
STRAWHAT SIZER summited new information packet on pt via enso for gateway, STRAWHAT SIZER communicated to Meenu and informed that pt is no longer on restraints.
--- NOTE | 2024-07-03 11:30 | PC.SS ---
WELDER BOILERMAKER called pt's to inform about d/c, pt's understood and WELDER BOILERMAKER explained to about transportation cost and stated that they can not afford transportation cost, WELDER BOILERMAKER to get an [facility]. WELDER BOILERMAKER called [facility] to get a quote and set up transportation.
--- NOTE | 2024-07-03 11:47 | PC.SS ---
PRODUCTION LEAD got a follow up with [facility] and ETA is 4:30, PRODUCTION LEAD to follow up with nurse.
[2024-07-03] MEDS: GLYCOPYRROLATE 1 MG TABLET NG (11:56)
--- NOTE | 2024-07-03 13:51 | PD.IMPROG ---
Documentation for date of: 07/03/24 Exam Vital Signs Temp Pulse Resp BP Pulse Ox O2 Del Method O2 Flow Rate 97.2 F 86 16 151/94 H 95 Nasal Cannula 5 07/03/24 12:00 07/03/24 12:00 07/03/24 12:00 07/03/24 12:00 07/03/24 12:00 07/03/24 12:00 07/03/24 12:00 Objective Labs 07/03/24 04:58 07/03/24 04:58 Labs: Laboratory Results - last 24 hr 07/03/24 04:58 WBC 15.7 H RBC 4.05 Hgb 12.4 Hct 36.8 MCV 91 MCH 30.6 MCHC 33.7 RDW Std Deviation 51.5 H Plt Count 127 L D Neut % (Auto) 68 Lymph % (Auto) 13 [place] % (Auto) 15 H Eos % (Auto) 3 Baso % (Auto) 0 Neut # (Auto) 10.7 H Lymph # (Auto) 2.0 [place] # (Auto) 2.4 H Eos # (Auto) 0.4 Baso # (Auto) 0.1 Immature Gran # (Auto) 0.21 H Absolute Nucleated RBC 0.00 Immature Gran % 1 H Nucleated RBC % 0 Sodium 144 Potassium 4.0 Chloride 109 H Carbon Dioxide 25.6 Anion Gap 9 BUN 16 Creatinine 0.9 Estim Creat Clear Calc 49.1 L eGFR > 60 BUN/Creatinine Ratio 18 Glucose 109 H Calculated Osmolality 289 Calcium 8.9 Corrected Calcium 9.7 Phosphorus 2.1 L Magnesium 2.0 Total Bilirubin 0.5 AST 26 ALT 20 Alkaline Phosphatase 83 Total Protein 5.3 L Albumin 3.0 L Globulin 2.3 Albumin/Globulin Ratio 1.3 Assessment & Plan A&P Narrative # dysphagia in a patient with dementia and recent CVA involving right occipital lobe infarct and a posterior left parietal lobe infarct Plan Fiberoptic esophagogastroduodenoscopy with possible esophageal dilatation possible percutaneous endoscopic gastrostomy tube placement under intravenous moderate sedation scheduled for tomorrow N.p.o. midnight tonight Other medical problems include # Recent CVA involving right occipital lobe and left parietal lobe # Dementia Thank you very much for the opportunity to participate in the care of this patient Time Spent With Patient Time: Total time spent is greater than 50% in coordination of care (as documented) at patient's floor/unit and/or counseling patient:
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
== END 2024-07-03 16:31 | disposition skilled nursing facility (03) | DRG 64 ==
LOC: SERX 06-28 02:13 → SERHOLD 06-28 02:22 → S2NX 06-28 11:24
PROVIDERS: Registered Nurse General Practice; Specialist; Student in an Organized Health Care Education/Training Program; Admitting Provider Internal Medicine; Emergency Provider Emergency Medicine; Visit Provider Student in an Organized Health Care Education/Training Program
PROC: 0DH63UZ Insertion of Feeding Device into Stomach, Percutaneous Approach (ICD-10-PCS; CPT 43246; 2024-06-30 17:30)
DX: I63.9 Cerebral infarction, unspecified (principal); A41.9 Sepsis, unspecified organism; J69.0 Pneumonitis due to inhalation of food and vomit; E87.0 Hyperosmolality and hypernatremia; N17.9 Acute kidney failure, unspecified; E46 Unspecified protein-calorie malnutrition; C79.9 Secondary malignant neoplasm of unspecified site; G93.49 Other encephalopathy; F03.90 Unspecified dementia, unspecified severity, without behavioral disturbance, psychotic disturbance, mood disturbance, and anxiety; I10 Essential (primary) hypertension; F20.9 Schizophrenia, unspecified; Z90.710 Acquired absence of both cervix and uterus; E86.0 Dehydration; Z68.21 Body mass index [BMI] 21.0-21.9, adult; Z85.42 Personal history of malignant neoplasm of other parts of uterus; E87.6 Hypokalemia; K20.90 Esophagitis, unspecified without bleeding; K29.70 Gastritis, unspecified, without bleeding; E04.1 Nontoxic single thyroid nodule; Z66 Do not resuscitate; R13.12 Dysphagia, oropharyngeal phase
CPT/HCPCS: 36415; 70450; 70496; 70498; 70544; 70551; 71045; 72125; 80048; 80053; 80061; 80202; 80307; 81001; 82550; 82570; 82607; 83036; 83605; 83615; 83690; 83735; 83880; 83970; 84100; 84145; 84295; 84300; 84443; 84484; 85014; 85018; 85025; 85610; 85652; 85730; 86304; 87040; 87077; 87081; 87186; 87400; 87811; 92526; 92610; 93005; 93306; 94664; 94667; 96365; 96366; 97162; 99291; A4649; J0295; J0696; J1200; J1643; J2060; J2250; J2470; J3010; J3370; J3475; J3480; J3490; J7030; J7040; J7050; J7070; J7999; Q9967; A9270

== ENCOUNTER → 2024-11-10 | Outpatient (CLI) | payer MEDICARE, OTHER, MEDICAID, SELFPAY ==
--- NOTE | 2024-11-10 10:30 | XR_ITS ---
Examination: Video esophagram. Modified barium swallow extremity Fluoroscopy Date and time: November 10, 2024 1125 hours INDICATIONS: History CVA, altered mental status, difficulty swallowing TECHNIQUE AND FINDINGS: Multiple barium mixtures, thin barium, pudding, nectar, cracker 88 spot fluoroscopic films soft tissue lateral neck with the patient swallowing Premature transfer Mildly poor oral control Mild pooling in the piriform sinuses and vallecula No penetration or aspiration Fluoroscopy 0.2 minutes IMPRESSION: No pharyngeal penetration or aspiration
== END | disposition home or self-care (01) ==
PROVIDERS: PCP Hospitalist; Referring Provider Hospitalist; Visit Provider Hospitalist
DX: R13.12 Dysphagia, oropharyngeal phase (principal)
CPT/HCPCS: 74230; A9270